=== PATIENT | male | born 1940 | race Caucasian/White ===

== ENCOUNTER 2021-08-26 09:28 | Inpatient (IN) | payer BC, MEDICARE ==
[2021-08-26] MEDS ORDERED: SODIUM CHLORIDE 0.9% 500 ML 500 ML IV ONE (09:45)
--- NOTE | 2021-08-26 10:04 | ED ---
General Adult HPI - General Chief complaint: Altered Mental Status Stated complaint: Poss Stroke Time Seen by Provider: 08/26/21 09:31 Source: patient, family, RN notes reviewed, old records reviewed Mode of arrival: ambulatory Limitations: no limitations - History of Present Illness Initial comments: 80-year-old male presenting for evaluation of confusion, and memory loss. Symptoms began yesterday evening. Patient self has no complaints, no headache, no chest pain, no fever, he has been eating and drinking well with no vomiting or diarrhea. No focal numbness or weakness. He was urged to come to the emergency department by his family would noted a change. He has no chronic medical conditions and is on no medication. This began yesterday at approximately 8 PM. He is presenting for evaluation at 0930. - Related Data Home Medications Medication Instructions Recorded Confirmed No Known Home Medications 08/26/21 08/26/21 Allergies Allergy/AdvReac Type Severity Reaction Status Date / Time No Known Allergies Allergy Verified 08/26/21 10:51 Review of Systems ROS Statement: Those systems with pertinent positive or pertinent negative responses have been documented in the HPI. ROS Other: All systems not noted in ROS Statement are negative. Past Medical History Past Medical History: No Reported History History of Any Multi-Drug Resistant Organisms: None Reported Past Surgical History: No Surgical Hx Reported Past Psychological History: No Psychological Hx Reported Smoking Status: Never smoker Past Alcohol Use History: None Reported Past Drug Use History: None Reported General Exam Limitations: no limitations General appearance: alert, in no apparent distress Head exam: Present: atraumatic, normocephalic Eye exam: Present: normal appearance, PERRL ENT exam: Present: normal exam Neck exam: Present: normal inspection. Absent: tenderness, meningismus Respiratory exam: Present: normal lung sounds bilaterally. Absent: respiratory distress, wheezes Cardiovascular Exam: Present: regular rate, normal rhythm GI/Abdominal exam: Present: soft. Absent: distended, tenderness Extremities exam: Present: normal inspection, normal capillary refill. Absent: pedal edema Neurological exam: Present: alert, CN II-XII intact. Absent: oriented X3 (2), motor sensory deficit Skin exam: Present: warm, dry, intact Course Vital Signs 08/26/21 08/26/21 09:30 11:40 Temperature 98.7 F Pulse Rate 85 74 Respiratory 20 16 Rate Blood Pressure 178/92 154/91 O2 Sat by Pulse 96 100 Oximetry EKG Findings - EKG Comments: EKG Findings:: EKG: Normal sinus rhythm, left axis, rate of 85, DE interval 166, QRS duration 84, QTC [address] segment elevation. Medical Decision Making - Medical Decision Making 80-year-old male presenting with confusion which began yesterday evening. Patient has no focal findings. He is hypertensive but otherwise has stable vitals. EKG sinus rhythm. Head CT performed which is negative for intracranial hemorrhage or mass effect. There is mild atrophy and moderate chronic small ves naveed ischemic changes. Patient has a normal CBC, normal CMP, negative urinalysis. He is given IV hydration and an aspirin in the emergency department. Case discussed with Dr. Valentine who will admit with neurology on consultation. - Lab Data Result diagrams: 08/26/21 09:58 08/26/21 09:58 Lab Results 08/26/21 08/26/21 08/26/21 Range/Units 09:58 09:58 09:58 WBC 9.3 (3.8-10.6) k/uL RBC 5.12 (4.30-5.90) m/uL Hgb 16.8 (13.0-17.5) gm/dL Hct 49.0 (39.0-53.0) % MCV 95.8 (80.0-100.0) fL MCH 32.7 (25.0-35.0) pg MCHC 34.2 (31.0-37.0) g/dL RDW 11.9 (11.5-15.5) % Plt Count 199 (150-450) k/uL MPV 8.3 Neutrophils % 71 % Lymphocytes % 19 % Monocytes % 7 % Eosinophils % 1 % Basophils % 1 % Neutrophils # 6.6 (1.3-7.7) k/uL Lymphocytes # 1.8 (1.0-4.8) k/uL Monocytes # 0.7 (0-1.0) k/uL Eosinophils # 0.1 (0-0.7) k/uL Basophils # 0.1 (0-0.2) k/uL PT 10.1 (9.0-12.0) sec INR 0.9 (<1.2) APTT 22.3 (22.0-30.0) sec Sodium 136 L (137-145) mmol/L Potassium 4.1 (3.5-5.1) mmol/L Chloride 101 (98-107) mmol/L Carbon Dioxide 25 (22-30) mmol/L Anion Gap 10 mmol/L BUN 19 (9-20) mg/dL Creatinine 0.88 (0.66-1.25) mg/dL Est GFR (CKD-EPI)AfAm >90 (>60 ml/min/1.73 sqM) Est GFR (CKD-EPI)NonAf 81 (>60 ml/min/1.73 sqM) Glucose 122 H (74-99) mg/dL Calcium 9.5 (8.4-10.2) mg/dL Total Bilirubin 2.4 H (0.2-1.3) mg/dL AST 25 (17-59) U/L ALT 20 (4-49) U/L Alkaline Phosphatase 46 (38-126) U/L Troponin I (0.000-0.034) ng/mL Total Protein 7.1 (6.3-8.2) g/dL Albumin 4.4 (3.5-5.0) g/dL Urine Color Urine Appearance (Clear) Urine pH (5.0-8.0) Ur Specific [place] (1.001-1.035) Urine Protein (Negative) Urine Glucose (UA) (Negative) Urine Ketones (Negative) Urine Blood (Negative) Urine Nitrite (Negative) Urine Bilirubin (Negative) Urine Urobilinogen (<2.0) mg/dL Ur Leukocyte Esterase (Negative) Urine RBC (0-5) /hpf Urine WBC (0-5) /hpf Urine Mucus (None) /hpf 08/26/21 08/26/21 Range/Units 09:58 10:46 WBC (3.8-10.6) k/uL RBC (4.30-5.90) m/uL Hgb (13.0-17.5) gm/dL Hct (39.0-53.0) % MCV (80.0-100.0) fL MCH (25.0-35.0) pg MCHC (31.0-37.0) g/dL RDW (11.5-15.5) % Plt Count (150-450) k/uL MPV Neutrophils % % Lymphocytes % % Monocytes % % Eosinophils % % Basophils % % Neutrophils # (1.3-7.7) k/uL Lymphocytes # (1.0-4.8) k/uL Monocytes # (0-1.0) k/uL Eosinophils # (0-0.7) k/uL Basophils # (0-0.2) k/uL PT (9.0-12.0) sec INR (<1.2) APTT (22.0-30.0) sec Sodium (137-145) mmol/L Potassium (3.5-5.1) mmol/L Chloride (98-107) mmol/L Carbon Dioxide (22-30) mmol/L Anion Gap mmol/L BUN (9-20) mg/dL Creatinine (0.66-1.25) mg/dL Est GFR (CKD-EPI)AfAm (>60 ml/min/1.73 sqM) Est GFR (CKD-EPI)NonAf (>60 ml/min/1.73 sqM) Glucose (74-99) mg/dL Calcium (8.4-10.2) mg/dL Total Bilirubin (0.2-1.3) mg/dL AST (17-59) U/L ALT (4-49) U/L Alkaline Phosphatase (38-126) U/L Troponin I <0.012 (0.000-0.034) ng/mL Total Protein (6.3-8.2) g/dL Albumin (3.5-5.0) g/dL Urine Color Yellow Urine Appearance Cloudy (Clear) Urine pH 6.0 (5.0-8.0) Ur Specific [place] 1.023 (1.001-1.035) Urine Protein Negative (Negative) Urine Glucose (UA) Negative (Negative) Urine Ketones Negative (Negative) Urine Blood Negative (Negative) Urine Nitrite Negative (Negative) Urine Bilirubin Negative (Negative) Urine Urobilinogen <2.0 (<2.0) mg/dL Ur Leukocyte Esterase Negative (Negative) Urine RBC 1 (0-5) /hpf Urine WBC 1 (0-5) /hpf Urine Mucus Moderate H (None) /hpf Disposition Clinical Impression: Altered mental status Disposition: ADMITTED IP TO THIS HOSP Condition: Stable Is patient prescribed a controlled substance at d/c from ED?: No Referrals: Souleymane Pesraud MD [Primary Care Provider] - 1-2 days Decision to Admit Reason: Admit from EC Decision Date: 08/26/21 Decision Time: 12:04
--- NOTE | 2021-08-26 10:53 | XR ---
EXAMINATION TYPE: XR chest 2V DATE OF EXAM: 08/26/2021 COMPARISON: NONE HISTORY: Altered mental status TECHNIQUE: Frontal and lateral views of the chest are obtained. FINDINGS: Patient is rotated and the exam appears expiratory. Aorta is dense. No evident pneumothora x or pleural effusion. There is minimal patchy basilar density. Retrocardiac density with central jennyfer ency suggestive of hiatal hernia and partial intrathoracic stomach. There are overlying leads. Arthro miguel angel noted in the left shoulder. Cardiac mediastinal silhouette within normal limits accounting for technique. IMPRESSION: Expiratory rotated exam. Probable basilar atelectasis on the follow-up as indicated, add itional findings above.
--- NOTE | 2021-08-26 10:59 | CT ---
EXAMINATION TYPE: CT brain wo con DATE OF EXAM: 08/26/2021 HISTORY: AMS CT DLP: 1096.4 mGycm. Automated Exposure Control for Dose Reduction was Utilized. TECHNIQUE: CT scan of the head is performed without contrast. COMPARISON: None. FINDINGS: There is no acute intracranial hemorrhage or midline shift identified. There is mild diff use ventricular and sulcal prominence consistent with diffuse age-related cerebral atrophy. There is moderate to advanced low-attenuation in the deep and periventricular white matter consistent with c hronic small vessel ischemic change. The globes are intact and the visualized sinuses are clear. IMPRESSION: No acute intracranial hemorrhage or midline shift. There is mild diffuse age-related ce rebral atrophy and moderate to advanced chronic small vessel ischemic change noted.
[2021-08-26 11:14] LABS: Basophils # (A) 0.1 k/uL (0-0.2); Basophils % (A) 1 %; Eosinophils # (A) 0.1 k/uL (0-0.7); Eosinophils % (A) 1 %; HGB 16.8 gm/dL (13.0-17.5); Lymphocytes # (A) 1.8 k/uL (1.0-4.8); Lymphocytes % (A) 19 %; MCH 32.7 pg (25.0-35.0); MCHC 34.2 g/dL (31.0-37.0); MCV 95.8 fL (80.0-100.0); Mean Platelet Volume 8.3; Monocytes # (A) 0.7 k/uL (0-1.0); Monocytes % (A) 7 %; Neutrophils # (A) 6.6 k/uL (1.3-7.7); Neutrophils % (A) 71 %; Platelet Count 199 k/uL (150-450); RBC 5.12 m/uL (4.30-5.90); RDW 11.9 % (11.5-15.5); WBC 9.3 k/uL (3.8-10.6)
[2021-08-26 11:19] LABS: ALT 20 U/L (4-49); AST 25 U/L (17-59); African American GFR (CKD) >90 (>60 ml/min/1.73 sqM); Albumin 4.4 g/dL (3.5-5.0); Alkaline Phosphatase 46 U/L (38-126); Anion Gap 10 mmol/L; Blood Urea Nitrogen 19 mg/dL (9-20); Calcium 9.5 mg/dL (8.4-10.2); Carbon Dioxide 25 mmol/L (22-30); Chloride 101 mmol/L (98-107); Glucose 122 mg/dL (74-99); Non-African American GFR(CKD) 81 (>60 ml/min/1.73 sqM); Potassium 4.1 mmol/L (3.5-5.1); Sodium 136 mmol/L (137-145); Total Bilirubin 2.4 mg/dL (0.2-1.3); Total Protein 7.1 g/dL (6.3-8.2)
[2021-08-26] MEDS ORDERED: ASPIRIN 325 MG TAB PO STA (11:22)
[2021-08-26 11:23] LABS: INR 0.9 (<1.2); Partial Thromboplastin Time 22.3 sec (22.0-30.0); Prothrombin Time 10.1 sec (9.0-12.0)
[2021-08-26 11:30] LABS: Appearance,Urine Cloudy (Clear); Bilirubin,Urine Negative (Negative); Blood,Urine Negative (Negative); Color,Urine Yellow; Glucose,Urine (UA) Negative (Negative); Ketones,Urine Negative (Negative); Leukocyte Esterase,Urine Negative (Negative); Mucus,Urine Moderate /hpf; Nitrite,Urine Negative (Negative); Protein,Urine Negative (Negative); RBC,Urine 1 /hpf (0-5); Specific Gravity,Urine 1.023 (1.001-1.035); Urobilinogen,Urine <2.0 mg/dL (<2.0); WBC,Urine 1 /hpf (0-5)
[2021-08-26] MEDS ORDERED: NALOXONE 0.4 MG/ML 1 ML VIAL IV PRN (12:02)
[2021-08-26 13:04] LABS: Glucose,Whole Blood 100 mg/dL (75-99)
--- NOTE | 2021-08-26 13:30 | P.HPIM ---
History of Present Illness H&P Date: 08/26/21 Chief Complaint: Increased confusion, word finding difficulty, gait instability History of present illness 80 years old male with no significant past medical history comes in with with increased confusion that started last night. Patient was unable to provide any details of the previous night. He was unable to recall the place or the month or the president of [facility]. He is usually very alert and is currently working. 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 Patient was unable to tell that he was going for what he does. He was noticed to have some some word finding difficulty. Patient is otherwise alert answering questions appropriately. He had similar incidents to work 3 months ago which was thought to be heatstroke. Symptoms resolved with hydration. On evaluation in the ER patient was afebrile pulse 85 respiratory rate 20 blood pressure was noted to be high at 178/92. EKG suggested normal sinus rhythm with left axis pulse rate of 85 QRS 84 QTC 444. Labs are reviewed no leukocytosis hemoglobin stable at 16.8 sodium 136 BUN 19 creatinine 0.[address] head was obtained which is negative for intracranial hemorrhage or mass effect mild atrophy and moderate to advanced chronic small vessel ischemic changes werenoted. Patient was given 500 mL bolus and 325 mg of started aspirin. Neurology is consulted. We'll obtain carotid Dopplers. Echocardiogram will be ordered. ROS Constitutional: Denies chills, Denies fever, Denies lethargy, Denies malaise, Denies poor appetite, Denies weakness, Denies weight loss Eyes: denies decreased vision, denies diplopia, denies discharge, denies pain Ears: deny: decreased hearing Ears, nose, mouth and throat: Denies dental pain, Denies headache, Denies nasal discharge, Denies nose pain Cardiovascular: Denies chest pain, Denies decreased exercise tolerance, Denies edema, Denies high blood pressure, Denies irregular heart beat, Denies palpita tions, Denies paroxysmal nocturnal dyspnea, Denies rapid heart beat, Denies shortness of breath Respiratory: Denies congestion, Denies cough, Denies cough with sputum, Denies dyspnea, Denies home oxygen, Denies wheezing Gastrointestinal: Denies abdominal pain, Denies change in bowel habits, Denies c offee ground emesis, Denies early satiety, Denies excessive gas, Denies heartburn, Denies hematemesis, Denies hematochezia, Denies loss of appetite, Denies nausea, Denies vomiting Genitourinary: Denies dysuria, Denies flank pain, Denies kidney stones, Denies menorrhagia, Denies urgency, Denies urinary frequency Musculoskeletal: Denies gait dysfunction, Denies limitation of motion, Denies morning stiffness, Denies muscle cramps Integumentary: Denies rash, Denies wounds, Denies brittle nails, Denies change in hair/nails, Denies darkening of skin Neurological: Endorses balance difficulties, endorses change in speech, Denies double vision, Denies gait dysfunction, Denies loss of vision, Denies motor disturbance, Denies numbness, Denies paralysis, Denies paresthesias, Denies seizures Psychiatric: Denies anxiety, Denies depression Endocrine: Denies excessive sweating, Denies excessive thirst, Denies high blood sugars, Denies palpitations Hematologic/Lymphatic: Denies easy bruising, Denies lymphadenopathy Social history Nonsmoker nondrinker and lives with his . Functionally independent. Denies any use of walker or cane. Finances are managed by . patient drives himself Family history mother disease in the 90s of dementia father from dementia and stroke 90s no siblings has 2 daughters one at 51 from ovarian cancer and another daughter has thyroid issues Physical exam - Constitutional General appearance: cooperative, no acute distress, appears stated age very pleasant - EENT Eyes: anicteric sclerae, PERRLA, normal appearance ENT: hearing grossly normal - Neck Neck: no lymphadenopathy, normal ROM, no other, no rigidity, no stridor, no thyromegaly - Respiratory Respiratory: bilateral: CTA, negative: diminished, dullness, rales, rhonchi - Cardiovascular Rhythm: regular Heart sounds: normal: S1, S2 Abnormal Heart Sounds: no systolic murmur, no diastolic murmur, no rub, no S3 Gallop, no S4 Gallop, no click, no other - Gastrointestinal General gastrointestinal: normal bowel sounds, soft nontender - Integumentary Integumentary: no rash - Neurologic Neurologic: CNII-XII intact no motor or sensory deficit. Difficulty with word finding. Oriented in 2 to - Musculoskeletal Musculoskeletal: gait normal, strength equal bilaterally - Psychiatric Psychiatric: A&O x's 2, appropriate affect Assessment and plan #1 expressive aphasia with new onset mental status change. Contrast CT suggestive of advanced small vessel ischemic changes. MRI without contrast ordered carotid ultrasound ordered. Aspirin 325 mg stat given. Lipid panel ordered. Neurology consult placed. Fall precautions. Seizure precautions. Permissive hypertension will treat if systolic more than 180 #2 hyponatremia mild. Likely secondary to dehydration. #3 hyperglycemia. HbA1c ordered. Likely prediabetes. Continue diabetic diet #4 hypertension patient does not take any blood pressure medication. Blood pressure could be a result. Low-salt diet. Heart healthy diet #5 code status full code #6 DVT heparin every 12 #7 disposition patient need 1-2 nights for stabilization. Awaiting neurology Past Medical History Past Medical History: No Reported History History of Any Multi-Drug Resistant Organisms: None Reported Past Surgical History: No Surgical Hx Reported Past Psychological History: No Psychological Hx Reported Smoking Status: Never smoker Past Alcohol Use History: None Reported Past Drug Use History: None Reported Medications and Allergies Home Medications Medication Instructions Recorded Confirmed Type No Known Home Medications 08/26/21 08/26/21 History Allergies Allergy/AdvReac Type Severity Reaction Status Date / Time No Known Allergies Allergy Verified 08/26/21 10:51 Physical Exam Vitals: Vital Signs Temp Pulse Resp BP Pulse Ox 08/26/21 11:40 74 16 154/91 100 08/26/21 09:30 98.7 F 85 20 178/92 96 Intake and Output 08/25/21 08/26/21 08/26/21 22:59 06:59 14:59 Other: Weight 68.039 kg Results CBC & Chem 7: 08/26/21 09:58 08/26/21 09:58 Labs: Abnormal Lab Results - Last 24 Hours (Table) 08/26/21 08/26/21 08/26/21 Range/Units 09:58 10:46 13:02 Sodium 136 L (137-145) mmol/L Glucose 122 H (74-99) mg/dL POC Glucose (mg/dL) 100 H (75-99) mg/dL Total Bilirubin 2.4 H (0.2-1.3) mg/dL Urine Mucus Moderate H (None) /hpf
--- NOTE | 2021-08-26 14:26 | P.CNNES ---
History of Present Illness Consult date: 08/26/21 Requesting physician: Didier Beach Reason for Consult: 08/26/2021 History of Present Illness: This is an 80-year-old gentleman with no prior medical history who presented emergency department on 08/26/2021 because of increased confusion since last night. The history is obtained from patient's family members (his and daughter who are at bedside). Per the patient's his symptoms began around 8:00 PM yesterday and he wasn't making sense. Per the patient's daughter she stated that she was documented as 7:30pm over the phone and was doing well. Per the patient's she wasn't making sense. Patient does not have any focal weakness, numbness, visual disturbance or headache. Per family members he had a similar episode in May 2021 in which he went to [place] and he does not recall what happened that day. Upon asking the patient what brought him to the hospital he had hard time stating what he is here for then asked me to repeat question and then later stated for his mind to be checked. Some other workup in the hospital consisted of: Initial vital signs his blood pressure of 178/92, heart rate of 85, respiratory of 20, temperature of 98.7 Fahrenheit oral and pulse ox of 96% on room air. CT of the head is reported as no acute intracranial hemorrhage or midline shift. There is mild diffuse age-related cerebral atrophy and moderate to advanced chronic small vessel ischemic changes noted. I personally reviewed the CT of the head and I do not appreciate any acute subacute ischemia. 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 CBC with differential is unremarkable. Chemistry panel is sodium is 136, glucose 122, creatinine 0.88, AST 25, ALT of 20. Calcium is 9.5. Urinalysis is negative for urinary tract infection. EKG is reported as normal sinus rhythm. Left axis deviation. Minimal voltage criteria for left ventricular hypertrophy, may be normal variant. Abnormal EKG. Review of Systems Review of system: The 12 point system was reviewed and apparent positive and negative per HPI. Past Medical History Past Medical History: No Reported History History of Any Multi-Drug Resistant Organisms: None Reported Past Surgical History: No Surgical Hx Reported Past Psychological History: No Psychological Hx Reported Smoking Status: Never smoker Past Alcohol Use History: None Reported Past Drug Use History: None Reported Medications and Allergies Home Medications Medication Instructions Recorded Confirmed Type No Known Home Medications 08/26/21 08/26/21 History Allergies Allergy/AdvReac Type Severity Reaction Status Date / Time No Known Allergies Allergy Verified 08/26/21 10:51 Physical Examination - Vital Signs Vital Signs: Vital Signs Temp Pulse Resp BP Pulse Ox 08/26/21 11:40 74 16 154/91 100 08/26/21 09:30 98.7 F 85 20 178/92 96 Intake and Output 08/25/21 08/26/21 08/26/21 22:59 06:59 14:59 Other: Weight 68.039 kg GENERAL: The patient is lying in bed and is not in acute distress. CHEST: The heart rate is regular rate rhythm. No murmurs to auscultation. Mild bruit over the right carotid. LUNG: Clear to auscultation bilaterally no wheezing noted throughout. Not labored breathing. ABDOMEN/GI: Bowel sounds present in all 4 quadrants. No tenderness to palpation throughout. NEUROLOGICAL: Higher mental function: The patient is awake, alert, oriented to self and place. He stated the month is November and the year is . Patient is able to correctly stated the capital of [place] and [place] Patient is able to name objects (pen, watch and glasses). Patient is following simple and complex commands. Having word finding difficulty. No neglect. Cranial nerves: The pupils are round, equal and reactive to light and accommodation. Visual phelps are full to confrontation throughout. Extraocular movement is intact no nystagmus is noted. Facial sensation is normal to touch throughout. The facial strength is normal throughout. Hearing is normal bilaterally to hand rub. Tongue is midline and moved [id number] without any difficulty. No dysarthria is noted. Shoulder shrug is normal bilaterally. Motor: Gait is normal with normal arms swings. The strength is 5 over 5 throughout. Normal tone and bulk. Cerebellum: Normal finger to nose bilaterally. Sensation: Sensation is normal to touch throughout. Reflexes (right/left): 2+ throughout. Plantars are downgoing bilaterally. Results - Laboratory Findings CBC and BMP: 08/26/21 09:58 08/26/21 09:58 Abnormal Lab Findings: Abnormal Labs 08/26/21 08/26/21 08/26/21 09:58 10:46 13:02 Sodium 136 L Glucose 122 H POC Glucose (mg/dL) 100 H Total Bilirubin 2.4 H Urine Mucus Moderate H Assessment and Plan Assessment: 1. Altered mentation with word finding difficulty. Rule out stroke. 2. Per family had similar episode as #1 in 05/2021 and does not recall what transpired that day. 3. Possibly the patient has underlying mild cognitive impairment/dementia in addition 4. Hypertension Plan: * MRI of the brain, 2-D echo, carotid duplex, vitamin B12, hemoglobin A1c, lipid panel and homocysteine level is ordered by the primary team and is pending * I ordered TSH, folate level. I Also ordered routine EEG. I'll not start the patient on antiepileptic drugs unless there is epileptiform discharges or seizure in the EEG. * The ED the patient was given aspirin 325 once. I spoke with his family and we agreed to wait until after MRI Brain then to start ASA 81mg daily and Lipitor 20mg qhs. * Placed on every 4 hours neuro checks.\Placed on cardiac monitoring * Consulted the speech therapy. * We'll defer the rest of the medical management to primary team. * For DVT prophylaxis will defer the management to the primary team. The plan is discussed with the patient and his family members (daughter and his who are at bedside). Thank you for the consultation. Vu Gates M.D. Neuro-hospitalist Time with Patient: Greater than 30
[2021-08-26] MEDS: SODIUM CHLORIDE 0.9% 1,000 ML IV SCH (15:21)
--- NOTE | 2021-08-26 15:54 | US ---
EXAMINATION TYPE: US carotid duplex BILAT DATE OF EXAM: 08/26/2021 COMPARISON: NONE CLINICAL HISTORY: Rule out TIA. Altered mental status EXAM MEASUREMENTS: RIGHT: Peak Systolic Velocity (PSV) cm/sec ----- Right CCA: 46.2 ----- Right ICA: 87.8 ----- Right ECA: 109.9 ICA/CCA ratio: 1.9 RIGHT: End Diastole cm/sec ----- Right CCA: 9.9 ----- Right ICA: 21.9 ----- Right ECA: 10.2 LEFT: Peak Systolic Velocity (PSV) cm/sec ----- Left CCA: 70.6 ----- Left ICA: 111.2 ----- Left ECA: 160.1 ICA/CCA ratio: 1.6 LEFT: End Diastole cm/sec ----- Left CCA: 13.0 ----- Left ICA: 20.6 ----- Left ECA: 11.4 VERTEBRALS (direction of flow): Right Vertebral: Antegrade Left Vertebral: Antegrade Rhythm: Normal Soft plaque bilaterally, however no significant elevated velocities were visualized bilaterally. Dinero scale, color Doppler, spectral Doppler imaging performed of the carotid arteries. Waveform marlyn sis does not show significant stenosis of the internal carotid arteries IMPRESSION: No hemodynamic significant stenosis of the proximal internal carotid arteries by Doppler criteria, indirect measurement of carotid stenosis Criteria for Assigning % of Stenosis / Diameter reduction (Estimation based on the indirect measurements of the internal carotid artery velocities (ICA PSV). 1. Normal (no stenosis)=ICA PSV < 125 cm/s: ratio < 2.0: ICA EDV<40 cm/s. 2. Less than 50% stenosis=ICA PSV < 125 cm/s: ratio < 2.0: ICA EDV<40 cm/s. 3. 50 to 69% stenosis=ICA PSV of 125 to 230 cm/s: ration 2.0 ? 4.0: ICA EDV 40-100 cm/s. 4. Greater than 70% stenosis to near occlusion= ICA PSV > 230 cm/s: ratio > 4.0: ICA EDV > 100 cm/s. 5. Near occlusion= ICA PSV velocities may be low or undetectable: variable ratio and ICA EDV. 6. Total occlusion=unable to detect flow.
[2021-08-26 20:26] LABS: Folate, Serum >20.00 ng/mL (4.40-31.00)
[2021-08-27] MEDS: SODIUM CHLORIDE 0.9% 1,000 ML IV SCH (02:45)
--- NOTE | 2021-08-27 08:15 | ECHOF ---
Referral Reason:CHF MEASUREMENTS -------- HEIGHT: 172.7 cm WEIGHT: 68.0 kg BP: IVSd: 1.3 cm (0.6 - 1.1) LVIDd: 3.0 cm (3.9 - 5.3) LVPWd: 0.9 cm (0.6 - 1.1) IVSs: 1.6 cm LVIDs: 1.7 cm LVPWs: 1.6 cm LAESV Index (A-L): 13.41 ml/m Ao Diam: 3.9 cm (2.0 - 3.7) AV Cusp: 2.2 cm (1.5 - 2.6) LA Diam: 2.4 cm (2.7 - 3.8) MV EXCURSION: 12.842 mm (> 18.000) MV EF SLOPE: 70 mm/s (70 - 150) EPSS: 0.6 cm MV E Markel: 0.48 m/s MV DecT: 149 ms MV A Markel: 0.86 m/s MV E/A Ratio: 0.56 RAP: 5.00 mmHg RVSP: 12.23 mmHg FINDINGS -------- This was a technically good study. The left ventricular size is normal. Left ventricular wall thickness is normal. Overall left vent ricular systolic function is normal with, an EF between 55 - 60 %. The diastolic filling pattern is normal for the age of the patient 9.33. The right ventricle is normal in size. The left atrial size is normal. Normal LA size by volume 22+/-6 ml/m2. The right atrial size is normal. Unable to visualize the septum. The aortic valve is trileaflet and appears structurally normal. The mitral valve is normal. Mild mitral regurgitation is present. The tricuspid valve appears structurally normal. Mild tricuspid regurgitation present. Right vent ricular systolic pressure is normal at < 35 mmHg. There is no pulmonic regurgitation present. The aortic root size is normal. Normal inferior vena cava with normal inspiratory collapse consistent with estimated right atrial pre ssure of 5 mmHg. There is no pericardial effusion. CONCLUSIONS -------- 1. The left ventricular size is normal. 2. Left ventricular wall thickness is normal. 3. Overall left ventricular systolic function is normal with, an EF between 55 - 60 %. 4. The diastolic filling pattern is normal for the age of the patient 9.33 5. Mild mitral regurgitation is present. 6. Mild tricuspid regurgitation present. 7. There is no pericardial effusion. RESIDENT CARE ASSOCIATE: Sandra Urias RDCS
[2021-08-27 11:40] LABS: Chol/HDL Ratio 3.93 Ratio; HDL Cholesterol 56.2 mg/dL (40.00-60.00); LDL Cholesterol,Calculated 135.6 mg/dL (0.0-131.0); VLDL Calculation 29.2 mg/dL (5.00-40.00)
--- NOTE | 2021-08-27 12:12 | MR ---
MR brain without contrast HISTORY: Altered mental status, rule out stroke, abnormal head CT Multiplanar multisequence imaging through the brain There are some scattered areas of restricted diffusion predominantly in the peripheral aspect of the right cerebellar hemisphere, small focus present on the left on axial image 9 of the diffusion weight ed images and on axial image 10 on the left. There is also focus of her strictured diffusion present along the campus on the left as well as a larger area of restricted diffusion on the left at the leve l of the thalamus. At the level of the convexity there is additional area of hyperintensity along the right parietal cortex which is bandlike, punctate diffusion in the right frontal and left frontal lo bes, axial image 26 of the diffusion weighted data set. Corresponding hyperintensities are present on inversion recovery T2-weighted sequences, there are additional scattered areas of encephalomalacia, scoliosis, nonspecific white matter demyelination involving the pericallosal, periventricular, subcor tical white matter. There is no hemorrhage or hydrocephalus. The corpus callosum, pituitary, cervical medullary junction, cerebellopontine angles are unremarkable. Cortical atrophy is noted. There are expected vascular flow voids. Encephalomalacia also present in t he left cerebellar hemisphere. The orbits show symmetric appearance. No significant inflammatory new ge in the paranasal sinuses with the exception of the left maxillary sinus, ethmoid air cells. IMPRESSION: Bilateral areas of restricted diffusion consistent with cerebral vascular accidents, cons ider embolic phenomenon. Age-related changes of atrophy and chronic small vessel ischemia are underly ing. Mild sinus disease.
--- NOTE | 2021-08-27 13:11 | EEG ---
ELECTROENCEPHALOGRAM REPORT DATE OF SERVICE: 08/27/2021. CLINICAL HISTORY: This is an 80-year-old gentleman who presented to the emergency department because of aphasia as well as confusion. The video EEG is obtained to evaluate for seizure and epileptiform discharges. RELEVANT MEDICATION: The patient is not on any antiepileptic drug. EEG TYPE: A routine 21-channel EEG is performed with video using the 10/20 electrode placement system. DESCRIPTION: Wakefulness and drowsiness are obtained. During wakefulness, there is a posterior- dominant rhythm of low to moderate voltage, reactive, well modulated of 8.5 to 9 hertz activity. During drowsiness there is slowing and attenuation of the background activity. There is no stage II sleep architecture seen. There is no focal slowing seen. Interictal and ictal is none. ACTIVATION PROCEDURE: Photic stimulation did not evoke a posterior driving response. There is no abnormality during the photic stimulation. Hyperventilation is not performed. CLINICAL INTERPRETATION: This is a normal routine EEG. There are no focal slowing, epileptiform discharges or seizure on the EEG. Clinical correlation is recommended. ORA / YAN: [id number] / MTDD
--- NOTE | 2021-08-27 13:13 | P.CRDCN ---
History of Present Illness Consult date: 08/27/21 History of present illness: HISTORY OF PRESENT ILLNESS: This is a 80-year-old male with a past medical history significant for TIA. Patient does not follow with a attendant child activity. We have been asked to see the patient in consultation for YOJANA for bilateral CVA. Patient examined at the bedside. Patient's spouse and daughter present. The patient's spouse is providing the majority of the HPI. She states that 2 days ago the patient became extremely confused and was not acting like himself. She brought into the hospital for further evaluation. Patient had an MRI completed today revealing bilateral CVAs. The patient denies any history of atrial fibrillation. He does report history of having a TIA in the past. He currently denies chest pain or pressure. Denies shortness of breath. Patient's family states the patient is almost back to his baseline. EKG reveals sinus mechanism with no signs of acute ischemia Chest xray probable basilar atelectasis Laboratory data: WBC 9.3. Hemoglobin 16.8. Platelet count 199. Sodium 136. Potassium 4.1. BUN 19. Creatinine 0.88. Troponin negative 1. Current home cardiac medications include none Echocardiogram completed revealed ejection fraction 55-60%, mild mitral regurgitation, and mild tricuspid regurgitation Brain MRI: Bilateral areas of restricted diffusion consistent with cerebral vascular accidents, consider embolic phenomenon. Age related changes of atrophy and chronic small vessel ischemia or underlying. Mild sinus disease. REVIEW OF SYSTEMS: At the time of my exam: CONSTITUTIONAL: Denies fever or chills. HEENT: Denies blurred vision, vision changes, or eye pain. Denies hemoptysis CARDIOVASCULAR: Denies chest pain. Denies orthopnea. Denies PND. Denies palpitations RESPIRATORY: Denies shortness of breath. GASTROINTESTINAL: Denies abdominal pain. Denies nausea or vomiting. HEMATOLOGIC: Denies bleeding disorders. GENITOURINARY: Denies any blood in urine. SKIN: Denies pruitis. Denies rash. PHYSICAL EXAM: VITAL SIGNS: Reviewed. GENERAL: Well-developed in no acute distress. HEENT: Head is normocephalic. Pupils are equal, round. Sclerae anicteric. Mucous membranes of the mouth are moist. Neck supple. No JVD or thyromegaly LUNGS: Respirations even and unlabored. Lungs essentially clear to auscultation bilaterally. HEART: Regular rate and rhythm. S1 and S2 heard. ABDOMEN: Soft. Nondistended. Nontender. EXTREMITIES: Normal range of motion. No clubbing or cyanosis. Peripheral pulses intact. No lower extremity edema NEUROLOGIC: Awake and alert. Oriented x 3. ASSESSMENT: Bilateral CVA History of TIA per patients PLAN: 2-D echo obtained and reviewed Continue Aspirin, Plavix, and Lipitor as started by neurology Continue telemetry monitoring to rule out any arrhythmias Patient to undergo YOJANA tomorrow with Dr. Gregorio Further recommendations pending patient's course Nurse practitioner note has been reviewed by physician. Signing provider agrees with the documented findings, assessment, and plan of care. Past Medical History Past Medical History: No Reported History History of Any Multi-Drug Resistant Organisms: None Reported Past Surgical History: No Surgical Hx Reported Past Psychological History: No Psychological Hx Reported Smoking Status: Never smoker Past Alcohol Use History: None Reported Past Drug Use History: None Reported Medications and Allergies Home Medications Medication Instructions Recorded Confirmed Type No Known Home Medications 08/26/21 08/26/21 History Allergies Allergy/AdvReac Type Severity Reaction Status Date / Time No Known Allergies Allergy Verified 08/26/21 10:51 Physical Exam Vitals: Vital Signs Temp Pulse Resp BP Pulse Ox 08/27/21 07:00 98.3 F 64 16 131/79 96 08/27/21 01:02 97.7 F 62 16 140/81 95 08/26/21 19:22 98.3 F 71 16 150/89 96 08/26/21 19:17 86 16 08/26/21 15:56 97.9 F 86 16 131/78 94 L Intake and Output 08/26/21 08/27/21 08/27/21 22:59 06:59 14:59 Intake Total 240 Balance 240 Intake: Oral 240 Other: # Voids 2 2 1 Results 08/26/21 09:58 08/26/21 09:58 Lipids 08/27/21 Range/Units 06:41 Triglycerides 146.00 (0.00-149.00) mg/dL Cholesterol 221.00 H (0.00-200.00) mg/dL HDL Cholesterol 56.20 (40.00-60.00) mg/dL Cholesterol/HDL Ratio 3.93 Ratio Current Medications Generic Name Dose Route Start Last Admin Trade Name Freq PRN Reason Stop Dose Admin Aspirin 81 mg 08/27/21 12:30 Aspirin 81 Mg PO DAILY KALLIE Atorvastatin Calcium 80 mg 08/27/21 21:00 Atorvastatin 80 Mg Tab PO HS KALLIE Clopidogrel Bisulfate 75 mg 08/27/21 12:30 Clopidogrel 75 Mg Tab PO DAILY KALLIE Sodium Chloride 1,000 mls @ 75 mls/hr 08/26/21 12:15 08/27/21 02:45 Saline 0.9% IV Not Given .[id number] [facility] Naloxone HCl 0.2 mg 08/26/21 12:02 Naloxone 0.4 Mg/Ml 1 Ml Vial IV Q2M PRN Opioid Reversal Intake and Output 08/26/21 08/27/21 08/27/21 22:59 06:59 14:59 Intake Total 240 Balance 240 Intake: Oral 240 Other: # Voids 2 2 1 08/26/21 09:58 08/26/21 09:58
[2021-08-27] MEDS: ASPIRIN 81 MG PO SCH (13:31)
[2021-08-27] MEDS: CLOPIDOGREL 75 MG TAB PO SCH (13:31)
--- NOTE | 2021-08-27 14:10 | P.PN ---
Subjective Progress Note Date: 08/27/21 The patient seen at bedside and is accompanied by his and she feels he is looking more alert and awake. Per the he seems to be responding better today. Denies any new neurological problems. Objective - Vital Signs Vital signs: Vital Signs Temp 98.3 F 08/27/21 07:00 Pulse 64 08/27/21 07:00 Resp 16 08/27/21 07:00 BP 131/79 08/27/21 07:00 Pulse Ox 96 08/27/21 07:00 Intake & Output 08/26/21 08/27/21 08/27/21 18:59 06:59 18:59 Intake Total 240 Balance 240 Weight 68.039 kg Intake: Oral 240 Other: # Voids 1 2 1 - Exam GENERAL: The patient is lying in bed and is not in acute distress. NEUROLOGICAL: Higher mental function: The patient is awake, alert, oriented to self and place. He stated the month is November and the year is . Patient is able to correctly stated the capital of [place] and [place] Patient is able to name objects (pen, watch and glasses). Patient is following simple and complex commands. Having word finding difficulty. No neglect. Cranial nerves: The pupils are round, equal and reactive to light and accommodation. Visual phelps are full to confrontation throughout. Extraocular movement is intact no nystagmus is noted. Facial sensation is normal to touch throughout. The facial strength is normal throughout. Hearing is normal bilaterally to hand rub. Tongue is midline and moved [id number] without any difficulty. No dysarthria is noted. Shoulder shrug is normal bilaterally. Motor: Gait is normal with normal arms swings. The strength is 5 over 5 throughout. Normal tone and bulk. Cerebellum: Normal finger to nose bilaterally. Sensation: Sensation is normal to touch throughout. Reflexes (right/left): 2+ throughout. Plantars are downgoing bilaterally. WORK-UP: Lipid panel is a triglyceride of 146, cholesterol 221, LDL is 135 and ACL of the 56. TSH is 3.57 Vitamin B12 is 979. Serum folate is more than 20. Hemoglobin A1c is 5.5. CT of the head is reported as no acute intracranial hemorrhage or midline shift. There is mild diffuse age-related cerebral atrophy and moderate to advanced chronic small vessel ischemic changes noted. I personally reviewed the CT of the head and I do not appreciate any acute subacute ischemia. 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 MR the brain is reported as bilateral area of restricted diffusion consistent with cerebral vascular accident, consider embolic phenomena. Age-related changes of atrophy and chronic small vessel ischemia or underlying. Mild the sinus disease. In the body of the report it is reported that the patient has restricted diffusion in the peripheral aspect of the right cerebellar hemisphere, small focus in the left. There is restricted diffusion in the left thalamus. As well over the right frontal left frontal right parietal. Carotid duplex was reported as no hemodynamic significant stenosis of the proximal internal carotid arteries by Doppler criteria, and direct measurement of carotid stenosis. 2-D echo was reported as left ventricular wall thickness is normal. Ejection fraction of 55-60%. Left atrial size is normal. Routine EEG on 08/27/2021 is normal. - Labs CBC & Chem 7: 08/26/21 09:58 08/26/21 09:58 Labs: Abnormal Lab Results - Last 24 Hours (Table) 08/27/21 Range/Units 06:41 Cholesterol 221.00 H (0.00-200.00) mg/dL LDL Cholesterol, Calc 135.6 H (0.0-131.0) mg/dL Vitamin B12 979.0 H (200.0-944.0) pg/mL Assessment and Plan Assessment: Acute Bilateral hemispheric stroke (presented with word finding difficulty and confusion). Seems embolic in nature (cardioembolic). Dyslipidemia Per family had similar episode of confusion on 05/2021 and does not recall what transpired that day. Possibly the patient has underlying mild cognitive impairment/dementia in addition New onset Hypertension Plan: * I started the patient on aspirin 81 and Plavix 75 mg daily. The patient to continue on dual antiplatelets for now. Start the patient on Lipitor 80 mg da vera at bedtime for secondary stroke prophylaxis. LDL goal stroke is less than 70. * Ordered CT angiography of the head and neck. * Consulted cardiology team for a YOJANA. * Continue every 4 hours neuro checks. * Continue cardiac monitoring. I will place order for event monitor for 30 days. * Consulted PT, OT and speech therapy. * We'll defer the rest of the medical management to primary team. * For DVT prophylaxis will start on subq heparin. * Upon discharge the patient needs to follow-up with a neurologist within 1-2 weeks as outpatient. The plan is discussed with the patient and his . Vu Gates M.D. Neuro-hospitalist Time with Patient: Less than 30
--- NOTE | 2021-08-27 14:34 | P.PN ---
Subjective Progress Note Date: 08/27/21 History of present illness 80 years old male with no significant past medical history comes in [facility] with increased confusion that started last night. Patient was unable to provide any details of the previous night. He was unable to recall the place or the month or the president of [facility]. He is usually very alert and is currently working. 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 Patient was unable to tell that he was going for what he does. He was noticed to have some some word finding difficulty. Patient is otherwise alert answering questions appropriately. He had similar incidents to work 3 months ago which was thought to be heatstroke. Symptoms resolved with hydration. On evaluation in the ER patient was afebrile pulse 85 respiratory rate 20 blood pressure was noted to be high at 178/92. EKG suggested normal sinus rhythm with left axis pulse rate of 85 QRS 84 QTC 444. Labs are reviewed no leukocytosis hemoglobin stable at 16.8 sodium 136 BUN 19 creatinine 0.[address] head was obtained which is negative for intracranial hemorrhage or mass effect mild atrophy and moderate to advanced chronic small vessel ischemic changes werenoted. Patient was given 500 mL bolus and 325 mg of started aspirin. Neurology is consulted. We'll obtain carotid Dopplers. Echocardiogram will be ordered. 08/20 7H and examined at bedside. The patient had mild confusion significantly better than yesterday. Patient is more alert answering questions appropriately. He did still have confusion regarding the month and year. Vital signs reviewed patient is afebrile pulse 64 respiratory rate 16 blood pressure 131/79. Labs reviewed patient has LDL of 135 cholesterol 231 B12 978 TSH 3.5. Cardiology is consulted for possible embolic stroke. Aspirin and Plavix initiated. Lipitor initially 80 mg by mouth daily. CT angiogram to neck ordered. Patient is planned to undergo YOJANA tomorrow. Telemetry continued to rule out atrial fibrillation or any arrhythmias. Echocardiogram with EF of 55-60% with mild MR TR. MRI brain 08/27 suggestive bilateral radial restricted diffusion consistent with CVA was considered embolic phenomena. 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 EEG suggested abnormal routine EEG no focal slowing or epileptiform discharge noted ROS Constitutional: Denies chills, Denies fever, Denies lethargy, Denies malaise, Denies poor appetite, Denies weakness, Denies weight loss Eyes: denies decreased vision, denies diplopia, denies discharge, denies pain Ears: deny: decreased hearing Ears, nose, mouth and throat: Denies dental pain, Denies headache, Denies nasal discharge, Denies nose pain Cardiovascular: Denies chest pain, Denies decreased exercise tolerance, Denies edema, Denies high blood pressure, Denies irregular heart beat, Denies palp itations, Denies paroxysmal nocturnal dyspnea, Denies rapid heart beat, Denies shortness of breath Respiratory: Denies congestion, Denies cough, Denies cough with sputum, Denies dyspnea, Denies home oxygen, Denies wheezing Gastrointestinal: Denies abdominal pain, Denies change in bowel habits, Denies coffee ground emesis, Denies early satiety, Denies excessive gas, Denies heartburn, Denies hematemesis, Denies hematochezia, Denies loss of appetite, Denies nausea, Denies vomiting Genitourinary: Denies dysuria, Denies flank pain, Denies kidney stones, Denies menorrhagia, Denies urgency, Denies urinary frequency Musculoskeletal: Denies gait dysfunction, Denies limitation of motion, Denies morning stiffness, Denies muscle cramps Integumentary: Denies rash, Denies wounds, Denies brittle nails, Denies change in hair/nails, Denies darkening of skin Neurological: Endorses balance difficulties, improved change in speech, Denies double vision, Denies gait dysfunction, Denies loss of vision, Denies motor disturbance, Denies numbness, Denies paralysis, Denies paresthesias, Denies seizures Psychiatric: Denies anxiety, Denies depression Endocrine: Denies excessive sweating, Denies excessive thirst, Denies high blood sugars, Denies palpitations Hematologic/Lymphatic: Denies easy bruising, Denies lymphadenopathy Physical exam - Constitutional General appearance: cooperative, no acute distress, appears stated age very pleasant - EENT Eyes: anicteric sclerae, PERRLA, normal appearance ENT: hearing grossly normal - Neck Neck: no lymphadenopathy, normal ROM, no other, no rigidity, no stridor, no thyromegaly - Respiratory Respiratory: bilateral: CTA, negative: diminished, dullness, rales, rhonchi - Cardiovascular Rhythm: regular Heart sounds: normal: S1, S2 Abnormal Heart Sounds: no systolic murmur, no diastolic murmur, no rub, no S3 Gallop, no S4 Gallop, no click, no other - Gastrointestinal General gastrointestinal: normal bowel sounds, soft nontender - Integumentary Integumentary: no rash - Neurologic Neurologic: CNII-XII intact no motor or sensory deficit. Difficulty with word finding. Oriented in 2 to - Musculoskeletal Musculoskeletal: gait normal, strength equal bilaterally - Psychiatric Psychiatric: A&O x's 2, appropriate affect Assessment and plan #1 acute CVA with expressive aphasia with new onset mental status change. Contrast CT suggestive of advanced small vessel ischemic changes. MRI suggestive of bilateral embolic stroke. CT angiogram to neck pending. Aspirin 81 and Plavix 75 mg initiated. Lipitor initiated at 80 mg by mouth daily Fall precautions. Seizure precautions. Permissive hypertension will treat if systolic more than 180. Cardiology consulted for YOJANA tomorrow #2 hyponatremia mild. Likely secondary to dehydration. Repeat CMP today #3 hyperglycemia. HbA1c 5.5. Continue diabetic diet #4 hypertension patient does not take any blood pressure medication. Blood pressure improved continue to monitor needed will start on lisinopril 2.5 mg by mouth daily. Low-salt diet. Heart healthy diet #5 code status full code #6 DVT heparin every 12 #7 disposition patient need 1-2 nights for stabilization. Objective - Vital Signs Vital signs: Vital Signs Temp 98.3 F 08/27/21 07:00 Pulse 64 08/27/21 07:00 Resp 16 08/27/21 07:00 BP 131/79 08/27/21 07:00 Pulse Ox 96 08/27/21 07:00 Intake & Output 08/26/21 08/27/21 08/27/21 18:59 06:59 18:59 Intake Total 240 Balance 240 Weight 68.039 kg Intake: Oral 240 Other: # Voids 1 2 1 - Labs CBC & Chem 7: 08/26/21 09:58 08/26/21 09:58 Labs: Abnormal Lab Results - Last 24 Hours (Table) 08/27/21 Range/Units 06:41 Cholesterol 221.00 H (0.00-200.00) mg/dL LDL Cholesterol, Calc 135.6 H (0.0-131.0) mg/dL Vitamin B12 979.0 H (200.0-944.0) pg/mL
[2021-08-27] MEDS: HEPARIN SODIUM,PORCINE/PF 5,000 UNIT/0.5 ML SYRINGE SQ SCH ×2 (16:53→20:25)
--- NOTE | 2021-08-27 18:27 | CT ---
EXAMINATION TYPE: CT angio head neck DATE OF EXAM: 08/27/2021 COMPARISON: None HISTORY: Altered mental status. Possible stroke. CT DLP: 264.2 mGycm Automated exposure control for dose reduction was used. CONTRAST: Performed with IV Contrast, patient injected with 65 mL of Isovue 370. Images obtained from the aortic arch to the vertex of the brain with IV contrast. There are 3-D post processed images. There is normal branching pattern of the great vessels on the aortic arch. There is bilateral arteria l flow in the subclavian arteries. There is arterial flow in the common internal and external carotid arteries bilaterally. There is wide patency of the carotid artery bifurcations. There is arterial fl ow in both vertebral arteries. There is arterial flow in the vertebrobasilar artery system. There is no evidence of carotid or vertebral artery aneurysm or dissection. There is arterial flow in the anterior middle and posterior cerebral arteries. There is no mass effec t. There is no evidence of intracranial aneurysm or neovascularity. There is no mass effect. I see no evidence of intracranial arterial stenosis. There is normal enhancement of the venous sinuses. IMPRESSION: Negative CT angiogram of the neck. Negative CT angiogram of the brain.
[2021-08-27] MEDS ORDERED: ATORVASTATIN 80 MG TAB PO SCH (21:00)
[2021-08-28 03:29] LABS: African American GFR (CKD) 78.2 (60.0-200.0); Albumin 4.3 g/dL (3.8-4.9); Anion Gap 5.3 mmol/L (4.00-12.00); BUN/Creat Ratio 17.4 Ratio (12.00-20.00); Blood Urea Nitrogen 18.1 mg/dL (9.0-27.0); Calcium 9.3 mg/dL (8.7-10.3); Carbon Dioxide 28.1 mmol/L (21.6-31.8); Globulin 2.1 g/dL (1.6-3.3); Non-African American GFR(CKD) 67.5 (60.0-200.0); Potassium 4.4 mmol/L (3.5-5.5); Total Bilirubin 1.4 mg/dL (0.30-1.20); Total Protein 6.4 g/dL (6.2-8.2)
[2021-08-28] MEDS: SODIUM CHLORIDE 0.9% 1,000 ML IV SCH (08:23)
[2021-08-28] MEDS ORDERED: fentaNYL (PF) 50 MCG/ML 2 ML AMP ONE (09:57)
[2021-08-28] MEDS ORDERED: SODIUM CHLORIDE 0.9% 1,000 ML IV ONE (10:17)
[2021-08-28] MEDS ORDERED: BENZOCAINE SPRAY 1 CAN TOPICAL ONE (10:23)
[2021-08-28] MEDS: MIDAZOLAM 2 MG/2 ML VIAL IV ONE ×2 (10:24→10:25)
[2021-08-28] MEDS ORDERED: fentaNYL (PF) 50 MCG/ML 2 ML AMP IV ONE (10:24)
--- NOTE | 2021-08-28 10:32 | P.DS ---
Providers Date of admission: 08/27/21 14:32 Expected date of discharge: 08/28/21 Attending physician: Gina Valentine MD Consults: 08/26/21 12:02 Consult Physician Routine Consulting Provider: Vu Gates Consult Reason/Comments: AMS Do you want consulting provider notified?: Yes 08/27/21 12:20 Consult Physician Routine Consulting Provider: Guerline Morales Consult Reason/Comments: YOJANA. Bilateral hemisphere stroke. Seems Embolic phenomenon Do you want consulting provider notified?: Yes Primary care physician: [facility] Course: History of present illness 80 years old male with no significant past medical history comes in with with increased confusion that started last night. Patient was unable to provide any details of the previous night. He was unable to recall the place or the month or the president of [facility]. He is usually very alert and is currently working. 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 Patient was unable to tell that he was going for what he does. He was noticed to have some some word finding difficulty. Patient is otherwise alert answering questions appropriately. He had similar incidents to work 3 months ago which was thought to be heatstroke. Symptoms resolved with hydration. On evaluation in the ER patient was afebrile pulse 85 respiratory rate 20 blood pressure was noted to be high at 178/92. EKG suggested normal sinus rhythm with left axis pulse rate of 85 QRS 84 QTC 444. Labs are reviewed no leukocytosis hemoglobin stable at 16.8 sodium 136 BUN 19 creatinine 0.[address] head was obtained which is negative for intracranial hemorrhage or mass effect mild atrophy and moderate to advanced chronic small vessel ischemic changes werenoted. Patient was given 500 mL bolus and 325 mg of started aspirin. Neurology is consulted. We'll obtain carotid Dopplers. Echocardiogram will be ordered. 08/27 and examined at bedside. The patient had mild confusion significantly better than yesterday. Patient is more alert answering questions appropriately. He did still have confusion regarding the month and year. Vital signs reviewed patient is afebrile pulse 64 respiratory rate 16 blood pressure 131/79. Labs reviewed patient has LDL of 135 cholesterol 231 B12 978 TSH 3.5. Cardiology is consulted for possible embolic stroke. Aspirin and Plavix initiated. Lipitor initially 80 mg by mouth daily. CT angiogram to neck ordered. Patient is planned to undergo YOJANA tomorrow. Telemetry continued to rule out atrial fibrillation or any arrhythmias. Echocardiogram with EF of 55-60% with mild MR TR. MRI brain 08/27 suggestive bilateral radial restricted diffusion consistent with CVA was considered embolic phenomena. 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 EEG suggested abnormal routine EEG no focal slowing or epileptiform discharge noted 08/28: She underwent YOJANA today which revealed no intracardiac thrombus. No evidence of shunting across the septum. Moderate atherosclerotic plaque involving the aorta. EEG was normal. He has been followed closely by neurology, event monitor has been ordered. Recommendations are for aspirin and Plavix and neurology follow-up. He is planning to go home with family and does not require home care. Patient will be discharged today in stable condition. 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 #2 hyponatremia mild. Likely secondary to dehydration. #3 hyperglycemia. HbA1c 5.5. #4 hypertension Impression and plan of care have been directed as dictated by the signing physician. Verena Velasquez nurse practitioner acting as scribe for signing physician. Patient Condition at Discharge: Stable Plan - Discharge Summary New Discharge Prescriptions: New Aspirin 81 mg PO DAILY tab Atorvastatin [Lipitor] 80 mg PO HS #30 tab Clopidogrel [Plavix] 75 mg PO DAILY #30 tab lisinopriL [Zestril] 2.5 mg PO DAILY #30 tab Discharge Medication List Aspirin 81 mg PO DAILY tab 08/28/21 [Rx] Atorvastatin [Lipitor] 80 mg PO HS #30 tab 08/28/21 [Rx] Clopidogrel [Plavix] 75 mg PO DAILY #30 tab 08/28/21 [Rx] lisinopriL [Zestril] 2.5 mg PO DAILY #30 tab 08/28/21 [Rx] Follow up Appointment(s)/Referral(s): Era Mariee MD [REFERRING] - 1 Week (Office will call with appointment date and time) Souleymane Persaud MD [Primary Care Provider] - 09/04/21 10:15 am Patient Instructions/Handouts: Transesophageal Echocardiogram (DC), Altered Mental Status (GEN), Stroke (DC) Discharge Disposition: HOME WITH HOME HEALTH SERVICES
[2021-08-28 11:08] VITALS: RESP 18
[2021-08-28] MEDS: CLOPIDOGREL 75 MG TAB PO SCH (11:14)
[2021-08-28] MEDS: ASPIRIN 81 MG PO SCH (11:14)
[2021-08-28] MEDS: HEPARIN SODIUM,PORCINE/PF 5,000 UNIT/0.5 ML SYRINGE SQ SCH (11:14)
[2021-08-28] MEDS ORDERED: SODIUM CHLORIDE 0.9% 1,000 ML IV SCH (11:30)
--- NOTE | 2021-08-28 11:55 | ECHOT ---
TRANSESOPHAGEAL ECHOCARDIOGRAM INDICATION: To rule out cardiac source of thromboembolic phenomena in a patient with CVA. PROCEDURE NOTE: After obtaining informed consent, transesophageal echocardiogram was performed in left lateral position using an Omniplane probe. Local and IV sedation were obtained using Xylocaine spray, 2 mg of intravenous Versed, and 50 mcg of fentanyl. Patient tolerated the procedure well without any obvious immediate complications. Total sedation time was 9 minutes. We obtained 2D, M-mode, color Doppler and spectral analysis. FINDINGS: 1. There is no intracardiac thrombus within the left atrial appendage, left atrium, right atrium, right ventricle or left ventricle. 2. Interatrial septum appears aneurysmally dilated. There is no evidence of left-to- right shunt by color-flow Doppler or [id number] shunt by agitated saline contrast study. 3. There is mild mitral and aortic regurgitation noted. There is mild tricuspid regurgitation noted. Left ventricle has normal size and systolic function. Left atrium appears enlarged. Right atrium and right ventricle seem within normal limits. Aorta shows moderate atherosclerotic changes with ascending aortic aneurysm measuring 4 cm. CONCLUSIONS: 1. No intracardiac thrombus. 2. Normal LV function. 3. No evidence of shunting across the septum. 4. Moderate atherosclerotic plaque involving the aorta. MMODL / IJN: [id number] /
[2021-08-28 14:55] VITALS: BP 121/75; PULSE 69; TEMP 97.9
--- NOTE | 2021-08-28 16:08 | P.PN ---
Subjective Progress Note Date: 08/28/21 The patient is seen at bedside and doing well. He is accompanied with his daughter who agrees. She feels he is getting better, mentation andrew but not back to baseline. Objective - Vital Signs Vital signs: Vital Signs Temp 97.9 F 08/28/21 14:55 Pulse 69 08/28/21 14:55 Resp 18 08/28/21 14:55 BP 121/75 08/28/21 14:55 Pulse Ox 94 L 08/28/21 14:55 Intake & Output 08/27/21 08/28/21 08/28/21 18:59 06:59 18:59 Intake Total 300 200 Balance 300 200 Intake: IV 100 Oral 300 100 Other: Voiding Method Toilet Toilet Diaper Diaper # Voids 3 2 2 - Exam GENERAL: The patient is lying in bed and is not in acute distress. NEUROLOGICAL: Higher mental function: The patient is awake, alert, oriented to self and place. He stated the month is November and the year is . Patient is able to correctly stated the capital of [place] and [place] Patient is able to name objects (pen, watch and glasses). Patient is following simple and complex commands. Having word finding difficulty. No neglect. Cranial nerves: The pupils are round, equal and reactive to light and accommodation. Visual phelps are full to confrontation throughout. Extraocular movement is intact no nystagmus is noted. Facial sensation is normal to touch throughout. The facial strength is normal throughout. Hearing is normal bilaterally to hand rub. Tongue is midline and moved [id number] without any difficulty. No dysarthria is noted. Shoulder shrug is normal bilaterally. Motor: Gait is normal with normal arms swings. The strength is 5 over 5 th roughout. Normal tone and bulk. Cerebellum: Normal finger to nose bilaterally. Sensation: Sensation is normal to touch throughout. Reflexes (right/left): 2+ throughout. Plantars are downgoing bilaterally. WORK-UP: Lipid panel is a triglyceride of 146, cholesterol 221, LDL is 135 and ACL of the 56. TSH is 3.57 Vitamin B12 is 979. Serum folate is more than 20. Hemoglobin A1c is 5.5. CT of the head is reported as no acute intracranial hemorrhage or midline shift. There is mild diffuse age-related cerebral atrophy and moderate to advanced chronic small vessel ischemic changes noted. I personally reviewed the CT of the head and I do not appreciate any acute subacute ischemia. 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 CT angiography of the head and neck was reported as negative. MR the brain is reported as bilateral area of restricted diffusion consistent with cerebral vascular accident, consider embolic phenomena. Age-related changes of atrophy and chronic small vessel ischemia or underlying. Mild the sinus disease. In the body of the report it is reported that the patient has restricted diffusion in the peripheral aspect of the right cerebellar hemisphere, small focus in the left. There is restricted diffusion in the left thalamus. As well over the right frontal left frontal right parietal. Carotid duplex was reported as no hemodynamic significant stenosis of the proximal internal carotid arteries by Doppler criteria, and direct measurement of carotid stenosis. 2-D echo was reported as left ventricular wall thickness is normal. Ejection fraction of 55-60%. Left atrial size is normal. Routine EEG on 08/27/2021 is normal. Transesophageal echocardiogram is reported as no intracardiac thrombus. Normal left ventricular function. No evidence of shunting across the septum. Moderate atherosclerotic plaque involving the aorta. - Labs CBC & Chem 7: 08/26/21 09:58 08/27/21 16:44 Labs: Abnormal Lab Results - Last 24 Hours (Table) 08/27/21 Range/Units 16:44 Total Bilirubin 1.40 H (0.30-1.20) mg/dL Assessment and Plan Assessment: Acute Bilateral hemispheric stroke (presented with word finding difficulty and confusion). Seems embolic in nature (cardioembolic). Dyslipidemia Per family had similar episode of confusion on 05/2021 and does not recall what transpired that day. Possibly the patient has underlying mild cognitive impairment/dementia in addition New onset Hypertension Plan: * Continue aspirin 81 and Plavix 75 mg daily. The patient to continue on dual antiplatelets for now. Continue Lipitor 80 mg daily at bedtime for secondary stroke prophylaxis. LDL goal stroke is less than 70. * Continue every 4 hours neuro checks. * Continue cardiac monitoring. Ordered event monitor for 30 days. * PT, OT and speech therapy are consulted * We'll defer the rest of the medical management to primary team. * For DVT prophylaxis on subq heparin. * Upon discharge the patient needs to follow-up with a neurologist within 1-2 weeks as outpatient. The plan is discussed with the patient's daughter who is at bedside. Patient is clear from neurological perspective. Vu Gates M.D. Neuro-hospitalist Time with Patient: Less than 30
== END 2021-08-28 15:22 | disposition home health service (06) | DRG 65 ==
LOC: EC 09:28 → 6NMEDSUR 12:02 → OBSVTOIN 08-27 14:32
PROVIDERS: ADMIT Internal Medicine; ATTEND Internal Medicine
PROC: B246ZZ4 Ultrasonography of Right and Left Heart, Transesophageal (ICD-10-PCS; principal; 2021-08-28 10:00)
DX: I63.49 Cerebral infarction due to embolism of other cerebral artery (principal); E87.1 Hypo-osmolality and hyponatremia; R47.01 Aphasia; I10 Essential (primary) hypertension; E78.5 Hyperlipidemia, unspecified; R73.9 Hyperglycemia, unspecified; E86.0 Dehydration; F03.90 Unspecified dementia, unspecified severity, without behavioral disturbance, psychotic disturbance, mood disturbance, and anxiety; M60.9 Myositis, unspecified; R73.03 Prediabetes; Z79.899 Other long term (current) drug therapy; Z82.3 Family history of stroke; Z86.73 Personal history of transient ischemic attack (TIA), and cerebral infarction without residual deficits; Z20.822 Contact with and (suspected) exposure to COVID-19
CPT/HCPCS: 36415; 70450; 70496; 70498; 70551; 71046; 80053; 80061; 81001; 82607; 82746; 83036; 83090; 84443; 84484; 85025; 85610; 85730; 87635; 93005; 93270; 93306; 93312; 93320; 93325; 93880; 95816; 96360; 99285

== ENCOUNTER 2021-11-01 12:08 | Emergency (ER) | payer MEDICARE ==
[2021-11-01 12:23] VITALS: BP 157/86; PULSE 116; RESP 16; TEMP 97.1
--- NOTE | 2021-11-01 13:38 | ED ---
Psych HPI - General Chief Complaint: Psychiatric Symptoms Stated Complaint: Mental Health Time Seen by Provider: 11/01/21 12:30 Source: patient, EMS, RN notes reviewed Mode of arrival: EMS - History of Present Illness Initial Comments: 81-year-old male brought in by EMS for psych evaluation due to family concerns. Patient denied any suicidal ideations while the room. He notes he was trying to get a gun to put a sick or stone. 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 He notes that he has no history of depression. She denied any chest pain first breath headache nausea vomiting diarrhea constipation fever fatigue chills. - Related Data Previous Rx's Medication Instructions Recorded Aspirin 81 mg PO DAILY tab 08/28/21 Atorvastatin [Lipitor] 80 mg PO HS #30 tab 08/28/21 Clopidogrel [Plavix] 75 mg PO DAILY #30 tab 08/28/21 lisinopriL [Zestril] 2.5 mg PO DAILY #30 tab 08/28/21 Allergies Allergy/AdvReac Type Severity Reaction Status Date / Time No Known Allergies Allergy Verified 08/26/21 10:51 Review of Systems ROS Statement: Those systems with pertinent positive or pertinent negative responses have been documented in the HPI. ROS Other: All systems not noted in ROS Statement are negative. 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 History of Any Multi-Drug Resistant Organisms: None Reported Past Surgical History: Unable to Obtain Past Psychological History: No Psychological Hx Reported Smoking Status: Never smoker Past Alcohol Use History: None Reported Past Drug Use History: None Reported General Exam Limitations: no limitations General appearance: alert, in no apparent distress Head exam: Present: atraumatic, normocephalic, normal inspection Eye exam: Present: normal appearance, PERRL, EOMI. Absent: scleral icterus, conjunctival injection, periorbital swelling ENT exam: Present: normal exam, mucous membranes moist Neck exam: Present: normal inspection Respiratory exam: Present: normal lung sounds bilaterally. Absent: respiratory distress, wheezes, rales, rhonchi, stridor Cardiovascular Exam: Present: regular rate, normal rhythm, normal heart sounds. Absent: systolic murmur, diastolic murmur, rubs, gallop, clicks Neurological exam: Present: alert, oriented X3 Psychiatric exam: Present: normal affect, agitated Skin exam: Present: warm, dry, intact, normal color. Absent: rash Course Vital Signs 11/01/21 12:11 Temperature 97.1 F L Pulse Rate 116 H Respiratory 16 Rate Blood Pressure 157/86 O2 Sat by Pulse 92 L Oximetry Medical Decision Making - Medical Decision Making 81-year-old male presenting for psych evaluation for possible suicidal ideation. Patient is cleared for psych evaluation. EPS nurse notes the patient does not meet criteria for admission and was given a safety plan and resources. Case discussed with Dr. Ballard. Patient discharge home. Disposition Clinical Impression: Depression Disposition: HOME SELF-CARE Condition: Stable Instructions (If sedation given, give patient instructions): Depression (ED) Additional Instructions: Please return to the Emergency Department if symptoms worsen or any other concerns. Follow-up with primary care in 1-2 days. Use resources to seek help if needed. Is patient prescribed a controlled substance at d/c from ED?: No Referrals: Souleymane Persaud MD [Primary Care Provider] - 1-2 days Time of Disposition: 13:38
== END 2021-11-01 13:44 | disposition home or self-care (01) ==
LOC: EC 12:08
DX: F32.A Depression, unspecified (principal); Z79.82 Long term (current) use of aspirin; Z79.899 Other long term (current) drug therapy
CPT/HCPCS: 82075; 99284

== ENCOUNTER 2021-11-01 18:11 | Inpatient (IN) | payer MEDICARE ==
--- NOTE | 2021-11-01 18:33 | ED ---
Psych HPI - General Source: patient, family, RN notes reviewed Mode of arrival: ambulatory <Suresh Arthur - Last Filed: 11/01/21 18:52> <Wilton Pemberton - Last Filed: 11/01/21 19:18> - General Chief Complaint: Psychiatric Symptoms Stated Complaint: Mental Health eval Time Seen by Provider: 11/01/21 18:26 - History of Present Illness Initial Comments: This a 81-year-old male presents emergency from for psychiatric evaluation. Patient seen here earlier today after reports of depression, suicidal ideation at that time was determined that patient had a misunderstanding though upon further information and patient was brought back emergency department patient reportedly had a gun, but is starting to shoot himself. This was witnessed by police. Patient denies any physical complaints on new medications no other complaints. (Suresh Arthur) - Related Data Home Medications Medication Instructions Recorded Confirmed Sertraline [Zoloft] 25 mg PO HS 11/01/21 11/01/21 Previous Rx's Medication Instructions Recorded Atorvastatin [Lipitor] 80 mg PO HS #30 tab 08/28/21 Clopidogrel [Plavix] 75 mg PO DAILY #30 tab 08/28/21 lisinopriL [Zestril] 2.5 mg PO DAILY #30 tab 08/28/21 Allergies Allergy/AdvReac Type Severity Reaction Status Date / Time No Known Allergies Allergy Verified 11/01/21 19:09 Review of Systems ROS Other: All systems not noted in ROS Statement are negative. <Suresh Arthur - Last Filed: 11/01/21 18:52> ROS Other: All systems not noted in ROS Statement are negative. <Wilton Pemberton - Last Filed: 11/01/21 19:18> ROS Statement: Those systems with pertinent positive or pertinent negative responses have been documented in the HPI. 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, Dementia History of Any Multi-Drug Resistant Organisms: None Reported Past Surgical History: Unable to Obtain Past Psychological History: No Psychological Hx Reported Smoking Status: Never smoker Past Alcohol Use History: None Reported Past Drug Use History: None Reported <Suresh Arthur - Last Filed: 11/01/21 18:52> General Exam Limitations: no limitations General appearance: alert, in no apparent distress Head exam: Present: atraumatic, normocephalic, normal inspection Eye exam: Present: normal appearance, PERRL, EOMI. Absent: scleral icterus, conjunctival injection, periorbital swelling Neck exam: Present: normal inspection. Absent: tenderness, meningismus, lymphadenopathy Respiratory exam: Present: normal lung sounds bilaterally. Absent: respiratory distress, wheezes, rales, rhonchi, stridor Cardiovascular Exam: Present: regular rate, normal rhythm, normal heart sounds. Absent: systolic murmur, diastolic murmur, rubs, gallop, clicks <Suresh Arthur - Last Filed: 11/01/21 18:52> Medical Decision Making <Suresh Arthur - Last Filed: 11/01/21 18:52> <Wilton Pemberton - Last Filed: 11/01/21 19:18> - Medical Decision Making Patient evaluated by psychiatric services. Patient be admitted for psychiatric treatment. (Suresh Arthur) Patient seen by mental health services with plan for admission. They did request clinical certificate. Patient reevaluated by myself. Patient's history is not consistent with history provided. Positive clinical certificate completed. Family has concerns that patient was found with a gun trying to shoot himself. (Wilton Pemberton) Disposition Time of Disposition: 18:53 <Suresh Arthur - Last Filed: 11/01/21 18:52> <Wilton Pemberton - Last Filed: 11/01/21 19:18> Clinical Impression: Depression, Suicidal ideation Disposition: TRANSFER TO PSYCH HOSP/UNIT Referrals: Souleymane Persaud MD [Primary Care Provider] - 1-2 days
[2021-11-01] MEDS ORDERED: MAGNESIUM HYDROXIDE 2,400 MG/10 ML CUP PO PRN (20:33)
[2021-11-01] MEDS ORDERED: ACETAMINOPHEN TAB 325 MG TAB PO PRN (20:33)
[2021-11-01] MEDS ORDERED: MAG HYDROX/AL HYDROX/SIMETH 30 ML CUP PO PRN (20:33)
[2021-11-01] MEDS ORDERED: haloperidoL 5 MG TAB PO PRN (20:42)
[2021-11-01] MEDS ORDERED: SERTRALINE 25 MG TAB PO SCH (21:00)
[2021-11-01] MEDS ORDERED: HALOPERIDOL LACTATE 5 MG/ML 1 ML VIAL IM PRN (21:48)
[2021-11-01] MEDS ORDERED: HALOPERIDOL LACTATE 5 MG/ML 1 ML VIAL IM SCH (22:00)
[2021-11-01] MEDS: ATORVASTATIN 80 MG TAB PO SCH (23:09)
[2021-11-01 23:39] LABS: Basophils # (A) 0.1 k/uL (0-0.2); Basophils % (A) 1 %; Eosinophils # (A) 0.2 k/uL (0-0.7); Eosinophils % (A) 2 %; HCT 47.9 % (39.0-53.0); HGB 16.1 gm/dL (13.0-17.5); Lymphocytes # (A) 2.1 k/uL (1.0-4.8); Lymphocytes % (A) 19 %; MCHC 33.6 g/dL (31.0-37.0); MCV 98.1 fL (80.0-100.0); Mean Platelet Volume 7.8; Monocytes # (A) 1.1 k/uL (0-1.0); Monocytes % (A) 10 %; Neutrophils # (A) 7.3 k/uL (1.3-7.7); Neutrophils % (A) 67 %; Platelet Count 231 k/uL (150-450); RBC 4.88 m/uL (4.30-5.90); RDW 11.9 % (11.5-15.5)
[2021-11-01 23:48] LABS: ALT 34 U/L (4-49); AST 35 U/L (17-59); African American GFR (CKD) >90 (>60 ml/min/1.73 sqM); Albumin 4.2 g/dL (3.5-5.0); Alkaline Phosphatase 45 U/L (38-126); Anion Gap 7 mmol/L; Blood Urea Nitrogen 26 mg/dL (9-20); Calcium 9.4 mg/dL (8.4-10.2); Carbon Dioxide 28 mmol/L (22-30); Chloride 103 mmol/L (98-107); Glucose 108 mg/dL (74-99); Non-African American GFR(CKD) 83 (>60 ml/min/1.73 sqM); Potassium 4.4 mmol/L (3.5-5.1); Sodium 138 mmol/L (137-145); Total Bilirubin 2.8 mg/dL (0.2-1.3); Total Protein 6.9 g/dL (6.3-8.2)
[2021-11-02] MEDS: CLOPIDOGREL 75 MG TAB PO SCH (11:46)
--- NOTE | 2021-11-02 12:43 | P.HP ---
Psychiatric H&P - . H&P Date: 11/02/21 History & Physical: Allergies Allergy/AdvReac Type Severity Reaction Status Date / Time No Known Allergies Allergy Verified 11/01/21 22:47 Vital Signs Temp 98.7 F 11/02/21 03:10 Pulse 87 11/02/21 11:50 Resp 16 11/02/21 03:10 BP 141/77 11/02/21 11:50 Pulse Ox 94 L 11/01/21 22:37 Intake & Output 11/01/21 11/02/21 11/02/21 18:59 06:59 18:59 Weight 74.8 kg 62.1 kg Laboratory Last Values WBC 11.0 k/uL (3.8-10.6) H 11/01/21 23:02 RBC 4.88 m/uL (4.30-5.90) 11/01/21 23:02 Hgb 16.1 gm/dL (13.0-17.5) 11/01/21 23:02 Hct 47.9 % (39.0-53.0) 11/01/21 23:02 MCV 98.1 fL (80.0-100.0) 11/01/21 23:02 MCH 33.0 pg (25.0-35.0) 11/01/21 23:02 MCHC 33.6 g/dL (31.0-37.0) 11/01/21 23:02 RDW 11.9 % (11.5-15.5) 11/01/21 23:02 Plt Count 231 k/uL (150-450) 11/01/21 23:02 MPV 7.8 11/01/21 23:02 Neutrophils % 67 % 11/01/21 23:02 Lymphocytes % 19 % 11/01/21 23:02 Monocytes % 10 % 11/01/21 23:02 Eosinophils % 2 % 11/01/21 23:02 Basophils % 1 % 11/01/21 23:02 Neutrophils # 7.3 k/uL (1.3-7.7) 11/01/21 23:02 Lymphocytes # 2.1 k/uL (1.0-4.8) 11/01/21 23:02 Monocytes # 1.1 k/uL (0-1.0) H 11/01/21 23:02 Eosinophils # 0.2 k/uL (0-0.7) 11/01/21 23:02 Basophils # 0.1 k/uL (0-0.2) 11/01/21 23:02 Sodium 138 mmol/L (137-145) 11/01/21 23:02 Potassium 4.4 mmol/L (3.5-5.1) 11/01/21 23:02 Chloride 103 mmol/L (98-107) 11/01/21 23:02 Carbon Dioxide 28 mmol/L (22-30) 11/01/21 23:02 Anion Gap 7 mmol/L 11/01/21 23:02 BUN 26 mg/dL (9-20) H 11/01/21 23:02 Creatinine 0.83 mg/dL (0.66-1.25) 11/01/21 23:02 Est GFR (CKD-EPI)AfAm >90 (>60 ml/min/1.73 sqM) 11/01/21 23:02 Est GFR (CKD-EPI)NonAf 83 (>60 ml/min/1.73 sqM) 11/01/21 23:02 Glucose 108 mg/dL (74-99) H 11/01/21 23:02 Calcium 9.4 mg/dL (8.4-10.2) 11/01/21 23:02 Total Bilirubin 2.8 mg/dL (0.2-1.3) H 11/01/21 23:02 AST 35 U/L (17-59) 11/01/21 23:02 ALT 34 U/L (4-49) 11/01/21 23:02 Alkaline Phosphatase 45 U/L (38-126) 11/01/21 23:02 Total Protein 6.9 g/dL (6.3-8.2) 11/01/21 23:02 Albumin 4.2 g/dL (3.5-5.0) 11/01/21 23:02 TSH 3.080 mIU/L (0.465-4.680) 11/01/21 23:02 Coronavirus (PCR) Not Detected (Not Detectd) 11/01/21 19:26 11/02/21 12:43 IDENTIFYING DATA: Patient is a , employed, 81-year-old male with a significant history of stroke who presented to the emergency department under petition and certification due to suicidal ideation and increased anger. HPI: Patient presented to the hospital on 11/01/21, brought in due to concerns of suicidal ideation. The patient maintains that he had no intentions to ever take his life and that he was planning to "shoot some horses." He expresses that a horse on his property was lame and that he needed to get rid of that course. The patient does not endorse any significant symptoms of depression's been denying any suicidal or homicidal ideation, intention, and/or plan. He denies any auditory or visual hallucinations. He reports no paranoia or delusions. Patient vehemently denies any need for hospitalization. Collateral information was obtained by the patient's after the patient signed a release of information. The patient's Gege reports that, "Yesterday morning, he was in a bad mood. He took his gun out of the safe and laid it beside the door. I hid all the ammunition the day before. He indicated that killing himself was on his mind. I called our daughter who called 911 and police came out and then he did tell police that he would commit suicide. Ambulance came and took him to the hospital. It all started when our daughter got rid of one of his horses, he became upset and was angry when he was informed of this 2 days ago." In August, the patient presented with confusion to this hospital and was noted to have a stroke. 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 The patient's states that since the stroke, the patient has been displaying endorsing some depression as well as generalized confusion. 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 Prior to his stroke, the patient has no previous psychiatric history. PAST PSYCHIATRIC HISTORY: Patient states that no psychiatric history. Patient denies being on any psychiatric medications but Zoloft is a home medication that he has been prescribed for the last 2 months. Patient denies any previous psychiatric hospitalizations. Patient denies any psychiatric outpatient follow- up. Patient denies any history of suicide attempts in the past. PMH: Past Medical History: Unable to Obtain, Dementia History of Any Multi-Drug Resistant Organisms: None Reported Past Surgical History: Unable to Obtain Past Psychological History: No Psychological Hx Reported Smoking Status: Never smoker Past Alcohol Use History: None Reported Past Drug Use History: None Reported ALLERGIES: NO KNOWN DRUG ALLERGIES CHEMICAL DEPENDENCY HISTORY: Patient vehemently denies any tobacco, alcohol, marijuana, or illicit drug use. FAMILY PSYCHIATRIC/SUBSTANCE USE HISTORY: Patient denies. SOCIAL HISTORY: Patient was [place] patient is , and lives on a farm with his . They have adult children. 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 MENTAL STATUS EXAM: General Appearance: Patient appears to be stated age is alert, directable, and attempts to cooperate. Patient appears to have fair hygiene and grooming. Behavior: Patient is seated without any agitated behavior. Ornery. Speech: Patient's speech is fluent and nonpressured. Mood/Affect: Patient reports their mood is "annoyed," affect is irritable. Suicidality/Homicidality: Patient denies having any homicidal ideation intent or plan. Denies any suicidal ideations intent or plan Perceptions: Patient denies any visual hallucinations and denies any auditory hallucinations Though content/process: There is no evidence of any delusional thought content and thought process is linear and goal-directed. Memory and concentration: AOX3, grossly intact for the purposes of this session. Can spell "WORLD" backwards Judgment and insight: poor STRENGTHS/WEAKNESSES: Strength is that the patient has significant social support. Weakness is that the patient appears to have limited insight. INTELLECT: average IMPRESSIONS: Depressive disorder, unspecified Rule out neurocognitive disorder with behavioral disturbances PLAN: -Patient is admitted under involuntary status to [facility]HU for stabilization of psychiatric symptoms and safety. Patient's family would like to attempt to convince the patient to sign in voluntarily to the psychiatric unit. Will hold on the second clinical certificate and will reevaluate tomorrow. -Medications : We will increase Zoloft to 50 mg by mouth at bedtime for depression. This provider discussed with the patient's family and the patient antipsychotic medications and the risks/benefits of said medication. We discussed at length blackbox warning of increased cardiovascular events with patients in his age group presenting with psychosis. -Haldol PRN for agitation/aggression -UDS and UA are pending -Patient was informed of the risks, benefits and side effects of the medication. -Internal Medicine consult to perform medical evaluation and physical. -SW on board for discharge planning. Encourage patient to participate in groups to work on coping skills. 11/02/21 12:43
--- NOTE | 2021-11-02 19:35 | CONS ---
CONSULTATION HISTORY OF PRESENT ILLNESS: 81-year-old white male who was admitted to the hospital for psychiatric evaluation. He has had a stroke, history of stroke about 2 months ago. 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 He had to put one down. He had no ammunition and went to the store to buy ammunition. His family thought he was going to hurt himself. He said he was just going to put a horse down who was sick and he has been doing this his whole life. Anyway, he was admitted to hospital for psychiatric evaluation. No prior history since the stroke of any long-term side effects from stroke. He can swallow. Can move all 4 extremities. He can talk. His memory and he has no difficulty with getting his thoughts out. Vital signs: Temp 98.7, Pulse 87, respiratory 16, blood pressure 141/77, O2 94%. Cardiovascular S1, S2. Lungs clear. GI soft. Hematologic: Negative Homans. He is admitted for possible depression, generalized confusion and although he states this is a misunderstanding over his horses and what he was doing buying ammunition. He denies being suicidal or depressed. We will continue his home medicines. Await for psychiatrist to investigate him for worsening depression or any psych history. Otherwise continue current treatment. Prognosis is fairly good. MMODL / IJN: [id number] /
[2021-11-02 21:08] LABS: Appearance,Urine Clear (Clear); Bilirubin,Urine Negative (Negative); Blood,Urine Negative (Negative); Color,Urine Yellow; Glucose,Urine (UA) Negative (Negative); Ketones,Urine 1+ (Negative); Leukocyte Esterase,Urine Negative (Negative); Nitrite,Urine Negative (Negative); Protein,Urine Negative (Negative); Specific Gravity,Urine 1.022 (1.001-1.035); Urobilinogen,Urine <2.0 mg/dL (<2.0)
[2021-11-02] MEDS: SERTRALINE 50 MG TAB PO SCH (21:25)
[2021-11-02] MEDS: ATORVASTATIN 80 MG TAB PO SCH (21:25)
[2021-11-03 01:17] LABS: Amphetamine Screen,Urine Not Detected (NotDetected); Barbiturate Screen,Urine Not Detected (NotDetected); Benzodiazepines Screen,Urine Not Detected (NotDetected); Cocaine Screen,Urine Not Detected (NotDetected); Methadone Screen, Urine Not Detected (NotDetected); Opiate Screen,Urine Not Detected (NotDetected); Oxycodone Screen, Urine Not Detected (NotDetected); Phencyclidine Screen,Urine Not Detected (NotDetected); Tricyclic Antidepressant,Urine Not Detected (NotDetected); Urn Cannabinoid Scrn Not Detected (NotDetected)
[2021-11-03 07:11] VITALS: PULSE 65
[2021-11-03] MEDS: CLOPIDOGREL 75 MG TAB PO SCH (09:12)
--- NOTE | 2021-11-03 11:50 | P.PN ---
Progress Note - Text Progress Note Date: 11/03/21 Interval History: Patient was seen resting in bed and was directable and agreeable to speak with advertising copywriter in his room.. Currently, the patient is not endorsing any significant issues or concerns at this time. He continues to feel like his family overreacted in regards to his anger however displays poor insight into his actions that led up to this hospitalization. The patient appears to not remember the exact events leading up to his hospitalization. Otherwise, the patient is calm and cooperative with this provider and with staff. He is noted to be alert and oriented in all spheres at this time. He is currently denying any suicidal or homicidal ideation, intention, and/or plan. He is not reporting any auditory or visual hallucinations. He denies any paranoia or other delusions. The patient is willing to sign himself voluntarily into the psychiatric unit and has been adherent with Zoloft and is not endorsing any significant side effects at this time. Mental Status Exam: General Appearance: Patient appears to be stated age is alert, directable, and cooperative. Behavior: Patient is calmly seated without any agitated behavior. Speech: Patient's speech is fluent and nonpressured. Mood/Affect: Mood is improving mildly, affect is congruent and constricted. Suicidality/Homicidality: Patient denies having any suicidal or homicidal ideation intent or plan. Perceptions: Patient denies any visual hallucinations and denies any auditory hallucinations Though content/process: There is no evidence of any delusional thought content and thought process is linear and goal-directed. Memory and concentration: AOX3, grossly intact for the purposes of this session. Patient is unable to recall events leading up to this hospitalization. Judgment and insight: Improving mildly Vital Signs Temp 96.1 F L 11/03/21 06:52 Pulse 65 11/03/21 06:52 Resp 14 11/03/21 06:52 BP 105/64 11/03/21 06:52 Pulse Ox 95 11/03/21 06:52 Laboratory Results - Last 24 Hours 11/01/21 11/02/21 11/03/21 23:02 20:46 00:[address] Glu mg/dL 117 Hemoglobin A1c 5.7 Urine Color Yellow Urine Appearance Clear Urine pH 7.0 Ur Specific [place] 1.022 Urine Protein Negative Urine Glucose (UA) Negative Urine Ketones 1+ H Urine Blood Negative Urine Nitrite Negative Urine Bilirubin Negative Urine Urobilinogen <2.0 Ur Leukocyte Esterase Negative Urine Opiates Screen Not Detected Ur Oxycodone Screen Not Detected Urine Methadone Screen Not Detected Ur Propoxyphene Screen Not Detected Ur Barbiturates Screen Not Detected U Tricyclic Antidepress Not Detected Ur Phencyclidine Scrn Not Detected Ur Amphetamines Screen Not Detected U Methamphetamines Scrn Not Detected U Benzodiazepines Scrn Not Detected Urine Cocaine Screen Not Detected U Marijuana (THC) Screen Not Detected Assessment Major Neurocognitive disorder with behavioral disturbances Plan: -Patient continues to meet criteria for inpatient psychiatric admission for symptom stabilization and safety. Patient has signed adult voluntary form and medication consent and was placed in patient's chart. -Medications: Continue Zoloft 50 mg by mouth daily at bedtime for depression We will start Namenda 5 mg by mouth twice a day for neurocognitive disorder -When necessary Haldol for agitation/aggression. -SW on board for discharge planning. Encouraged the patient to participate in milieu.
[2021-11-03] MEDS: ATORVASTATIN 80 MG TAB PO SCH (21:07)
[2021-11-03] MEDS: SERTRALINE 50 MG TAB PO SCH (21:07)
[2021-11-03] MEDS: MEMANTINE 5 MG TAB PO SCH (21:07)
[2021-11-04] MEDS: CLOPIDOGREL 75 MG TAB PO SCH (09:09)
[2021-11-04] MEDS: MEMANTINE 5 MG TAB PO SCH ×2 (09:09→21:38)
--- NOTE | 2021-11-04 11:29 | P.PN ---
Progress Note - Text Progress Note Date: 11/04/21 Interval history: Patient was seen laying in his bed this morning and was directable and agreeable to speak with typewriter aligner. Patient claims that he is feeling bored while on the unit. He was fairly concrete and had a poverty of content in his thought process. He claims that his mood has been gradually improving and is denying any anxiety today. He asked several times about discharge. He appears to have superficial insight. He claims that he is able to sleep fairly last night and states "that's all I can do here is sleep". He claims that he has not been going to groups. At this time patient denies any suicidal or homicidal ideations intent or plan. Denies any Auditory or visual hallucinations. Patient denies any side effects from the medications and has been compliant with meds. Mental status exam: General Appearance: Patient appears to be elderly, thin, stated age is alert, di rectable, and attempts to be cooperative. Behavior: No agitated behavior. Patient is calm and directable Speech: Patient's speech is fluent and nonpressured. Mood/Affect: Mood is improving mildly, affect is congruent and constricted. Suicidality/Homicidality: Patient denies having any suicidal or homicidal ideation intent or plan. Perceptions: Patient denies any auditory or visual hallucinations. Though content/process: Focused on discharge. Minimizing his symptoms. Logical. Memory and concentration: AOX3, grossly intact for the purposes of this session Judgment and insight: Limited, improving mildly Assessment/Plan: Continue with current diagnosis. Patient continues to meet criteria for inpatient psychiatric admission for symptom stabilization and safety.Patient will be maintained on current psychotropic medication regimen. Monitor for medication compliance and for any psychotropic medication side effects. Will continue to monitor ongoing response to treatment. Encouraged participation in milieu. likely discharge tomorrow back home.
[2021-11-04] MEDS: ATORVASTATIN 80 MG TAB PO SCH (20:57)
[2021-11-04] MEDS: SERTRALINE 50 MG TAB PO SCH (20:58)
[2021-11-05 06:54] VITALS: BP 131/83; RESP 16; TEMP 97.5
[2021-11-05] MEDS: CLOPIDOGREL 75 MG TAB PO SCH (09:08)
[2021-11-05] MEDS: MEMANTINE 5 MG TAB PO SCH (09:08)
--- NOTE | 2021-11-05 11:34 | P.DS ---
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 Patient presented to the hospital on 11/01/21, brought in due to concerns of suicidal ideation. The patient maintains that he had no intentions to ever take his life and that he was planning to "shoot some horses." He expresses that a horse on his property was lame and that he needed to get rid of that course. The patient does not endorse any significant symptoms of depression's been denying any suicidal or homicidal ideation, intention, and/or plan. He denies any auditory or visual hallucinations. He reports no paranoia or delusions. Patient vehemently denies any need for hospitalization. Collateral information was obtained by the patient's after the patient signed a release of information. The patient's Gege reports that, "Yesterday morning, he was in a bad mood. He took his gun out of the safe and laid it beside the door. I hid all the ammunition the day before. He indicated that killing himself was on his mind. I called our daughter who called 911 and police came out and then he did tell police that he would commit suicide. Ambulance came and took him to the hospital. It all started when our daughter got rid of one of his horses, he became upset and was angry when he was informed of this 2 days ago." In August, the patient presented with confusion to this hospital and was noted to have a stroke. 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 The patient's states that since the stroke, the patient has been displaying endorsing some depression as well as generalized confusion. 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 Prior to his stroke, the patient has no previous psychiatric history. Patient states that no psychiatric history. Patient denies being on any psychiatric medications but Zoloft is a home medication that he has been prescribed for the last 2 months. Patient denies any previous psychiatric hospitalizations. Patient denies any psychiatric outpatient follow-up. Patient denies any history of suicide attempts in the past. Hospital course: Upon admission to the unit patient was initially presenting as ornery with little insight into the events leading up to the hospitalization. Patient was however directable and agreeable to commence treatment. Patient got along well with other patients on the unit and followed unit protocol. Patient was compliant with the medications and denied any side effects throughout hospital course. Patient was started on his home medications and his Zoloft was increased to 50 mg daily to address depression/anxiety which can occur post stroke. Patient spoke of his stressors and engaged in therapy both group and individual. Patient was also seen by medical team for history and physical exam. Patient was monitored on the psychiatric unit and displayed stability and was calm and cooperative with staff and peers. The patient's Zoloft was increased to 50 mg to address depression and irritability and Namenda was started to aid in slowing down neurocognitive decline. The patient gradually was more amenable and agreeable with treatment as well as with treatment recommendations. On the day of discharge, the patient is not endorsing any suicidal or homicidal ideation, intention, and/or plan. He is not reporting any auditory or visual hallucinations. He reports no paranoia or other delusions. Patients presses a strong desire to live for his health, his family, and his work. Patient reports that he finds it difficult to slow down from work as he feels like it is his work that keeps him alive. The patient does have access to firearms however the family is made aware and ammunition is kept separate from him. The patient does not have a significant history of substance abuse however was counseled on abstaining from all substances including alcohol and marijuana. Patient was counseled on importance of medication adherence and appropriate outpatient follow-up. Prior to discharge, family meeting will be arranged per geriatric social worker to answer questions and ensure safety. Mental status exam: General Appearance: Patient appears to be stated age is alert, pleasant, and cooperative. Patient is in no acute distress and has fair hygiene and grooming Behavior: Patient is calmly seated without any agitated behavior. Speech: Patient's speech is fluent and nonpressured. Mood/Affect: Patient reports their mood is "feeling good", affect is congruent and euthymic. Suicidality/Homicidality: Patient denies having any suicidal or homicidal ideation intent or plan. Perceptions: Patient denies any auditory or visual hallucinations. Though content/process: There is no evidence of any delusional thought content and thought process is linear and goal-directed. more future oriented Memory and concentration: AOX3, grossly intact for the purposes of this session. Can spell "WORLD" backwards correctly. Judgment and insight: Improved with guarded prognosis Vital Signs Temp 97.5 F L 11/05/21 06:42 Pulse 65 11/05/21 06:42 Resp 16 11/05/21 06:42 BP 131/83 11/05/21 06:42 Pulse Ox 97 11/05/21 06:42 Impression: Depressive disorder, unspecified Major Neurocognitive disorder with behavioral disturbances Plan: -Continue with discharge today as patient has improved and stabilized psychiatrically and is not currently an imminent threat to himself and/or others. Due to his history of vascular injury, the patient does present with an increased risk for cognitive decline and worsening of his mental condition compared to the general population. -Continue medications: Zoloft 50 mg by mouth at bedtime for depression/anxiety Namenda 5 mg by mouth twice a day for major neurocognitive disorder. -Patient was counseled on the need for medication compliance and appropriate follow-up at mental health and also primary care for medical issues. Patient verbalized understanding and agreed. -Social work to arrange for and conduct family meeting to ensure safety upon discharge and answer any questions/concerns. Social work also to arrange for patients follow up appointments for psychiatric care along with follow up with primary care provider. The patient is recommended to follow-up with an outpatient neurologist regarding neurocognitive disorder. -Patient counseled on abstaining from recreational drugs and marijuana and alcohol. Was informed/educated on the adverse effects on their physical and mental health. Patient verbally agreed and understood. -Patient was instructed to return to the hospital or seek immediate medical care if their psychiatric or medical symptoms do worsen or reoccur. -Psychoeducation and supportive therapy provided to patient. Risks and benefits of pharmacological treatment versus the risks and benefits of nontreatment weight and discussed With the patient and his . We discussed at length the possible addition of antipsychotic medications despite the black box warning of increased cardiovascular events. At this time during this hospital is , the patient displayed no behavioral concerns that would warrant the addition of an antipsychotic medication. This will be a discussion to be continued in the outpatient setting with his outpatient psychiatrist and neurologist. Laboratory Results WBC 11.0 k/uL (3.8-10.6) H 11/01/21 23:02 RBC 4.88 m/uL (4.30-5.90) 11/01/21 23:02 Hgb 16.1 gm/dL (13.0-17.5) 11/01/21 23: Hct 47.9 % (39.0-53.0) 11/01/21 23: MCV 98.1 fL (80.0-100.0) 11/01/21 23: MCH 33.0 pg (25.0-35.0) 11/01/21 23: MCHC 33.6 g/dL (31.0-37.0) 11/01/21 23:02 RDW 11.9 % (11.5-15.5) 11/01/21 23: Plt Count 231 k/uL (150-450) 11/01/21 23:02 MPV 7.8 11/01/21 23:02 Neutrophils % 67 % 11/01/21 23:02 Lymphocytes % 19 % 11/01/21 23:02 Monocytes % 10 % 11/01/21 23:02 Eosinophils % 2 % 11/01/21 23:02 Basophils % 1 % 11/01/21 23:02 Neutrophils # 7.3 k/uL (1.3-7.7) 11/01/21 23:02 Lymphocytes # 2.1 k/uL (1.0-4.8) 11/01/21 23: Monocytes # 1.1 k/uL (0-1.0) H 11/01/21 23:02 Eosinophils # 0.2 k/uL (0-0.7) 11/01/21 23:02 Basophils # 0.1 k/uL (0-0.2) 11/01/21 23:02 Sodium 138 mmol/L (137-145) 11/01/21 23:02 Potassium 4.4 mmol/L (3.5-5.1) 11/01/21 23:02 Chloride 103 mmol/L (98-107) 11/01/21 23:02 Carbon Dioxide 28 mmol/L (22-30) 11/01/21 23:02 Anion Gap 7 mmol/L 11/01/21 23:02 BUN 26 mg/dL (9-20) H 11/01/21 23:02 Creatinine 0.83 mg/dL (0.66-1.25) 11/01/21 23:02 Est GFR (CKD-EPI)AfAm >90 (>60 ml/min/1.73 sqM) 11/01/21 23:02 Est GFR (CKD-EPI)NonAf 83 (>60 ml/min/1.73 sqM) 11/01/21 23:02 Glucose 108 mg/dL (74-99) H 11/01/21 23:[address] Glu mg/dL 117 11/01/21 23:02 Hemoglobin A1c 5.7 % (4.0-6.0) 11/01/21 23:02 Calcium 9.4 mg/dL (8.4-10.2) 11/01/21 23:02 Total Bilirubin 2.8 mg/dL (0.2-1.3) H 11/01/21 23:02 AST 35 U/L (17-59) 11/01/21 23:02 ALT 34 U/L (4-49) 11/01/21 23:02 Alkaline Phosphatase 45 U/L (38-126) 11/01/21 23:02 Total Protein 6.9 g/dL (6.3-8.2) 11/01/21 23:02 Albumin 4.2 g/dL (3.5-5.0) 11/01/21 23:02 TSH 3.080 mIU/L (0.465-4.680) 11/01/21 23:02 Urine Color Yellow 11/02/21 20:46 Urine Appearance Clear (Clear) 11/02/21 20:46 Urine pH 7.0 (5.0-8.0) 11/02/21 20:46 Ur Specific [place] 1.022 (1.001-1.035) 11/02/21 20:46 Urine Protein Negative (Negative) 11/02/21 20:46 Urine Glucose (UA) Negative (Negative) 11/02/21 20:46 Urine Ketones 1+ (Negative) H 11/02/21 20:46 Urine Blood Negative (Negative) 11/02/21 20:46 Urine Nitrite Negative (Negative) 11/02/21 20:46 Urine Bilirubin Negative (Negative) 11/02/21 20:46 Urine Urobilinogen <2.0 mg/dL (<2.0) 11/02/21 20:46 Ur Leukocyte Esterase Negative (Negative) 11/02/21 20:46 Urine Opiates Screen Not Detected (NotDetected) 11/03/21 00:00 Ur Oxycodone Screen Not Detected (NotDetected) 11/03/21 00:00 Urine Methadone Screen Not Detected (NotDetected) 11/03/21 00:00 Ur Propoxyphene Screen Not Detected (NotDetected) 11/03/21 00:00 Ur Barbiturates Screen Not Detected (NotDetected) 11/03/21 00:00 U Tricyclic Antidepress Not Detected (NotDetected) 11/03/21 00:00 Ur Phencyclidine Scrn Not Detected (NotDetected) 11/03/21 00:00 Ur Amphetamines Screen Not Detected (NotDetected) 11/03/21 00:00 U Methamphetamines Scrn Not Detected (NotDetected) 11/03/21 00:00 U Benzodiazepines Scrn Not Detected (NotDetected) 11/03/21 00:00 Urine Cocaine Screen Not Detected (NotDetected) 11/03/21 00:00 U Marijuana (THC) Screen Not Detected (NotDetected) 11/03/21 00:00 Coronavirus (PCR) Not Detected (Not Detectd) 11/01/21 19:26 Allergies Allergy/AdvReac Type Severity Reaction Status Date / Time No Known Allergies Allergy Verified 11/01/21 22:47 Patient Condition at Discharge: Stable Plan - Discharge Summary Discharge Rx Participant: Yes New Discharge Prescriptions: New Memantine [Namenda] 5 mg PO BID 30 Days tab Clopidogrel [Plavix] 75 mg PO DAILY 30 Days tab Atorvastatin [Lipitor] 80 mg PO HS 30 Days tab lisinopriL [Zestril] 2.5 mg PO DAILY 30 Days tab Sertraline [Zoloft] 50 mg PO HS 30 Days tab Discontinued Atorvastatin [Lipitor] 80 mg PO HS #30 tab Clopidogrel [Plavix] 75 mg PO DAILY #30 tab Sertraline [Zoloft] 25 mg PO HS lisinopriL [Zestril] 2.5 mg PO DAILY #30 tab Discharge Medication List Atorvastatin [Lipitor] 80 mg PO HS 30 Days tab 11/05/21 [Rx] Clopidogrel [Plavix] 75 mg PO DAILY 30 Days tab 11/05/21 [Rx] Memantine [Namenda] 5 mg PO BID 30 Days tab 11/05/21 [Rx] Sertraline [Zoloft] 50 mg PO HS 30 Days tab 11/05/21 [Rx] lisinopriL [Zestril] 2.5 mg PO DAILY 30 Days tab 11/05/21 [Rx] Follow up Appointment(s)/Referral(s): [facility] - 11/04/21 5:30 pm (Dr Montiel) Souleymane Persaud MD [Primary Care Provider] - 1-2 days Patient Instructions/Handouts: Help Prevent Suicide (DC) Activity/Diet/Wound Care/Special Instructions: Activity and diet as tolerated. Avoid the use of street drugs and alcohol. Take all medications as prescribed. When you are in need of refills on your medications please contact your medical provider and/or outpatient psychiatrist to have this done. Please go to scheduled outpatient appointment for aftercare treatment. If symptoms return or become worse, call the crisis line at and/or go to the nearest emergency room for evaluation Discharge Disposition: HOME SELF-CARE
== END 2021-11-05 13:00 | disposition home or self-care (01) | DRG 881 ==
LOC: EC 18:11 → 3MHU 20:30
PROVIDERS: ADMIT Psychiatry & Neurology Psychiatry; ATTEND Psychiatry & Neurology Psychiatry
DX: F32.A Depression, unspecified (principal); F01.51 Vascular dementia, unspecified severity, with behavioral disturbance; R45.851 Suicidal ideations; F41.9 Anxiety disorder, unspecified; Z20.822 Contact with and (suspected) exposure to COVID-19; Z79.02 Long term (current) use of antithrombotics/antiplatelets; Z79.899 Other long term (current) drug therapy; Z86.73 Personal history of transient ischemic attack (TIA), and cerebral infarction without residual deficits
CPT/HCPCS: 80053; 80306; 81003; 82075; 83036; 84443; 85025; 87635; 93005; 99285

== ENCOUNTER 2023-03-11 13:50 | Inpatient (IN) | payer MEDICARE ==
--- NOTE | 2023-03-11 14:59 | ED ---
General Adult HPI - General Source: patient, family, RN notes reviewed Mode of arrival: wheelchair <Anna Farley - Last Filed: 03/11/23 14:58> - General Source: RN notes reviewed, old records reviewed - History of Present Illness -: days(s) Radiation: non-radiation Quality: other Consistency: constant Improves with: none Worsens with: none Associated Symptoms: loss of appetite, weakness Treatments Prior to Arrival: none <Amarjit You - Last Filed: 03/13/23 16:33> - General Chief complaint: Weakness Stated complaint: weak Time Seen by Provider: 03/11/23 14:58 - History of Present Illness Initial comments: 82-year-old male presents to the emergency department the chief complaint of generalized weakness and fatigue worsening over the last week. Denies chest pain shortness breath, palpitations. (Anna Farley) This is a 82-year-old male DF for evaluation patient presents today for evaluation of weakness patient has had some inability and difficulty in breathing especially yesterday. No recent travel history no sick contacts presents with significant cough and congestion coughing up mucus, not feeling well weakness no nausea vomiting or diarrhea. Denies shortness of breath (Amarjit Locke pp) - Related Data Home Medications Medication Instructions Recorded Confirmed Sertraline [Zoloft] 75 mg PO HS 03/11/23 03/11/23 Previous Rx's Medication Instructions Recorded Atorvastatin [Lipitor] 80 mg PO HS 30 Days tab 11/05/21 Clopidogrel [Plavix] 75 mg PO DAILY 30 Days tab 11/05/21 lisinopriL [Zestril] 2.5 mg PO DAILY 30 Days tab 11/05/21 Allergies Allergy/AdvReac Type Severity Reaction Status Date / Time No Known Allergies Allergy Verified 03/11/23 18:15 Review of Systems ROS Other: All systems not noted in ROS Statement are negative. <Anna Farley - Last Filed: 03/11/23 14:58> ROS Other: All systems not noted in ROS Statement are negative. <Amarjit You - Last Filed: 03/13/23 16:33> ROS Statement: Those systems with pertinent positive or pertinent negative responses have been documented in the HPI. 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 Absent: scleral icterus, conjunctival injection, periorbital swelling ENT exam: Present: normal exam, mucous membranes dry Neck exam: Present: normal inspection. Absent: tenderness, meningismus, lymphadenopathy Respiratory exam: Present: normal lung sounds bilaterally. Absent: respiratory distress, wheezes, rales, rhonchi, stridor Cardiovascular Exam: Present: regular rate, normal rhythm, normal heart sounds. Absent: systolic murmur, diastolic murmur, rubs, gallop, clicks GI/Abdominal exam: Present: soft, normal bowel sounds. Absent: distended, tenderness, guarding, rebound, rigid Extremities exam: Present: normal inspection, full ROM, normal capillary refill. Absent: tenderness, pedal edema, joint swelling, calf tenderness Back exam: Present: normal inspection Neurological exam: Present: alert, oriented X3, CN II-XII intact Psychiatric exam: Present: normal affect, normal mood Skin exam: Present: warm, dry, intact, normal color. Absent: rash <Amarjit You - Last Filed: 03/13/23 16:33> - General Exam Comments Initial Comments: Visual Physical Exam Vital signs reviewed General: Well-appearing, nontoxic, no acute distress. Head: Normocephalic, atraumatic Eyes: PERRLA, EOMI ENT: Airway patent Chest: Nonlabored breathing Skin: No visual rash, normal skin tone Neuro: Alert and oriented 3 Musculoskeletal: No gross abnormalities (Anna Farley) Persistent fevers (Amarjit You) Course <Amarjit You - Last Filed: 03/13/23 16:33> Vital Signs 03/11/23 03/11/23 03/11/23 14:06 15:37 15:40 Temperature 100.3 F H Pulse Rate 96 73 76 Respiratory 18 21 12 Rate Blood Pressure 112/59 131/78 O2 Sat by Pulse 93 L 95 Oximetry 03/11/23 03/11/23 03/11/23 15:44 15:50 16:00 Temperature 98.4 F 98.9 F Pulse Rate 73 72 71 Respiratory 16 15 16 Rate Blood Pressure 131/78 131/78 131/78 O2 Sat by Pulse 97 98 97 Oximetry 03/11/23 03/11/23 03/11/23 16:10 16:20 16:30 Temperature Pulse Rate 77 79 77 Respiratory 19 18 22 Rate Blood Pressure 110/69 110/69 110/69 O2 Sat by Pulse 97 96 97 Oximetry 03/11/23 03/11/23 03/11/23 16:40 16:50 17:00 Temperature Pulse Rate 78 72 74 Respiratory 20 16 11 L Rate Blood Pressure 121/74 121/74 121/74 O2 Sat by Pulse 96 Oximetry 03/11/23 03/11/23 03/11/23 17:10 17:20 17:30 Temperature Pulse Rate 76 73 Respiratory 16 11 L 13 Rate Blood Pressure 137/81 137/81 137/81 O2 Sat by Pulse Oximetry 03/11/23 03/11/23 03/11/23 17:40 17:50 18:00 Temperature Pulse Rate 73 76 74 Respiratory 16 7 L 17 Rate Blood Pressure 96/63 96/63 96/63 O2 Sat by Pulse 96 Oximetry 03/11/23 03/11/23 03/11/23 18:10 18:20 18:30 Temperature Pulse Rate 70 71 64 Respiratory 15 12 14 Rate Blood Pressure 97/57 97/57 97/57 O2 Sat by Pulse 97 Oximetry 03/11/23 03/11/23 03/11/23 18:40 18:50 19:00 Temperature Pulse Rate 65 64 62 Respiratory 14 14 13 Rate Blood Pressure 90/57 90/57 90/57 O2 Sat by Pulse 98 97 97 Oximetry 03/11/23 03/11/23 03/11/23 19:10 19:20 19:30 Temperature Pulse Rate 63 64 Respiratory 12 8 L 12 Rate Blood Pressure 91/58 91/58 91/58 O2 Sat by Pulse 97 98 96 Oximetry 03/11/23 03/11/23 03/11/23 19:40 19:50 20:00 Temperature Pulse Rate 60 60 58 L Respiratory 13 13 13 Rate Blood Pressure 98/60 98/60 98/60 O2 Sat by Pulse 96 97 98 Oximetry 03/11/23 03/11/23 03/11/23 20:10 20:20 20:30 Temperature Pulse Rate 59 L 58 L 66 Respiratory 12 10 L 16 Rate Blood Pressure 101/58 101/58 101/58 O2 Sat by Pulse 98 98 98 Oximetry 03/11/23 03/11/23 03/11/23 20:40 20:50 21:00 Temperature 98.9 F Pulse Rate 62 53 L 54 L Respiratory 11 L 21 7 L Rate Blood Pressure 102/63 102/63 102/63 O2 Sat by Pulse 97 96 98 Oximetry 03/11/23 03/11/23 03/11/23 21:10 21:20 21:30 Temperature Pulse Rate 80 63 61 Respiratory 16 14 11 L Rate Blood Pressure 98/60 98/60 98/60 O2 Sat by Pulse 90 L 96 95 Oximetry 03/11/23 03/11/23 03/11/23 21:40 21:50 22:00 Temperature Pulse Rate 65 57 L 59 L Respiratory 14 16 14 Rate Blood Pressure 100/64 100/64 100/64 O2 Sat by Pulse 94 L 96 95 Oximetry 03/11/23 03/11/23 03/11/23 22:10 22:20 22:30 Temperature Pulse Rate 65 53 L Respiratory 16 16 Rate Blood Pressure 106/64 106/64 106/64 O2 Sat by Pulse 98 96 Oximetry 03/11/23 03/11/23 03/11/23 22:40 22:50 23:00 Temperature Pulse Rate 54 L 70 58 L Respiratory 11 L 17 11 L Rate Blood Pressure 107/60 107/60 107/60 O2 Sat by Pulse 96 90 L 97 Oximetry 03/11/23 23:11 Temperature 98.8 F Pulse Rate 74 Respiratory 16 Rate Blood Pressure 111/64 O2 Sat by Pulse 96 Oximetry - Reevaluation(s) Reevaluation #1: 03/11/23 22:18 Medical records reviewed (Amarjit You) Reevaluation #2: 03/11/23 22:18 Patient has no change in symptoms here in the ER (Amarjit You) Reevaluation #3: 03/11/23 22:18 Patient informed results and questions answered (Amarjit You) Reevaluation #4: 03/11/23 22:18 Was pt. sent in by a medical professional or institution? @ -no Did you speak to anyone other than the patient for history? @ -no Did you review nursing and triage notes? @ -agree Were old charts reviewed? @ -no Differential Diagnosis? @ -prior EKG interpreted by me (3pts min.)? @ -yes X-rays interpreted by me (1pt min.)? @ -yes CT interpreted by me (1pt min.)? @ -no U/S interpreted by me (1pt. min.)? @ -no What testing was considered but not performed? (CT, X-rays, U/S, labs)? Why? @ -no What meds were considered but not given? Why? @ -no Did you discuss the management of the patient with other professionals? @ -no Did you reconcile home meds? @ -no Was smoking cessation discussed for >3mins.? @ -no Was critical care preformed (if so, how long)? @ -no Were there social determinants of health that impacted care today? How? (Homelessness, low income, unemployed, alcoholism, drug addiction, transportation, low edu. Level, literacy, decrease access to med. care, longterm, rehab)? @ -no Was there de-escalation of care discussed even if they declined? (Discuss DNR or withdrawal of care, Hospice)? @ -no What co-morbidities impacted this encounter? (DM, HTN, Smoking, COPD, CAD, Cancer, CVA, Hep., AIDS, mental health diagnosis, sleep apnea, morbid obesity)? @ -none Was patient admitted / discharged? @ -dc Undiagnosed new problem with uncertain prognosis? @ -no Drug Therapy requiring intensive monitoring for toxicity (Heparin, Nitro, Insulin, Cardizem)? @ -no Were any procedures done? @ -no Diagnosis/symptom? @ -fever,pna Acute, or Chronic, or Acute on Chronic? @ -acute Uncomplicated (without systemic symptoms) or Complicated (systemic symptoms)? @ -uncomplicated Side effects of treatment? @ -no Exacerbation, Progression, or Severe Exacerbation] @ -no Poses a threat to life or bodily function? @ -yes, sepsis (Amarjit You) Reevaluation #5: 03/11/23 22:18 Differential Weakness: Hypoglycemia, shock, sepsis, hyponatremia, anemia, infection, PA, ETOH, adverse medicine reaction, overdose, stroke, this is not meant to be an all-inclusive list. (Amarjit You) - Consultations Consultation #1: spoke w GIAN viramontes for admission (Amarjit You) EKG Findings - EKG Comments: EKG Findings:: EKG is sinus 84 MS 178 QRS 74 QTc 400 - EKG Results: EKG: interpreted by ERMD <Amarjit You - Last Filed: 03/13/23 16:33> Medical Decision Making - Lab Data Result diagrams: 03/13/23 06:29 03/13/23 06:29 - Radiology Data Radiology results: report reviewed (Chest x-rays likely for chronic changes), image reviewed <Amarjit You - Last Filed: 03/13/23 16:33> - Medical Decision Making 82 male to the emergency department for evaluation patient presented to us today for evaluation of cough congestion fever walking pneumonia, patient be admitted for IV antibiotics symptom management and hydration. (Amarjit You) - Lab Data Lab Results 03/11/23 03/11/23 03/11/23 Range/Units 15:25 15:25 15:25 WBC 15.6 H (3.8-10.6) k/uL RBC 5.01 (4.30-5.90) m/uL Hgb 15.8 (13.0-17.5) gm/dL Hct 46.8 (39.0-53.0) % MCV 93.4 (80.0-100.0) fL MCH 31.6 (25.0-35.0) pg MCHC 33.8 (31.0-37.0) g/dL RDW 12.3 (11.5-15.5) % Plt Count 217 (150-450) k/uL MPV 7.8 Neutrophils % 85 % Lymphocytes % 7 % Monocytes % 5 % Eosinophils % 2 % Basophils % 0 % Neutrophils # 13.3 H (1.3-7.7) k/uL Lymphocytes # 1.1 (1.0-4.8) k/uL Monocytes # 0.8 (0-1.0) k/uL Eosinophils # 0.3 (0-0.7) k/uL Basophils # 0.0 (0-0.2) k/uL PT 10.7 (9.0-12.0) sec INR 1.0 (<1.2) APTT 23.8 (22.0-30.0) sec Sodium 136 L (137-145) mmol/L Potassium 4.0 (3.5-5.1) mmol/L Chloride 100 (98-107) mmol/L Carbon Dioxide 25 (22-30) mmol/L Anion Gap 11 mmol/L BUN 27 H (9-20) mg/dL Creatinine 0.83 (0.66-1.25) mg/dL Est GFR (CKD-EPI)AfAm >90 (>60 ml/min/1.73 sqM) Est GFR (CKD-EPI)NonAf 82 (>60 ml/min/1.73 sqM) Glucose 116 H (74-99) mg/dL Plasma Lactic Acid Srinivas (0.7-2.0) mmol/L Calcium 9.1 (8.4-10.2) mg/dL Phosphorus (2.5-4.5) mg/dL Magnesium (1.6-2.3) mg/dL Total Bilirubin 3.0 H (0.2-1.3) mg/dL AST 34 (17-59) U/L ALT 37 (4-49) U/L Alkaline Phosphatase 55 (38-126) U/L Troponin I (0.000-0.034) ng/mL NT-Pro-B Natriuret Pep pg/mL Total Protein 6.7 (6.3-8.2) g/dL Albumin 4.2 (3.5-5.0) g/dL TSH (0.465-4.680) mIU/L Urine Color Urine Appearance (Clear) Urine pH (5.0-8.0) Ur Specific [place] (1.001-1.035) Urine Protein (Negative) Urine Glucose (UA) (Negative) Urine Ketones (Negative) Urine Blood (Negative) Urine Nitrite (Negative) Urine Bilirubin (Negative) Urine Urobilinogen (<2.0) mg/dL Ur Leukocyte Esterase (Negative) Urine RBC (0-5) /hpf Urine Mucus (None) /hpf Influenza Type A (PCR) (Not Detectd) Influenza Type B (PCR) (Not Detectd) RSV (PCR) (Not Detectd) SARS-CoV-2 (PCR) (Not Detectd) 03/11/23 03/11/23 03/11/23 Range/Units 15:25 15:44 15:54 WBC 14.4 H (3.8-10.6) k/uL RBC 5.27 (4.30-5.90) m/uL Hgb 17.0 (13.0-17.5) gm/dL Hct 49.6 (39.0-53.0) % MCV 94.1 (80.0-100.0) fL MCH 32.4 (25.0-35.0) pg MCHC 34.4 (31.0-37.0) g/dL RDW 12.4 (11.5-15.5) % Plt Count 220 (150-450) k/uL MPV 8.2 Neutrophils % 85 % Lymphocytes % 7 % Monocytes % 5 % Eosinophils % 2 % Basophils % 0 % Neutrophils # 12.2 H (1.3-7.7) k/uL Lymphocytes # 1.1 (1.0-4.8) k/uL Monocytes # 0.8 (0-1.0) k/uL Eosinophils # 0.2 (0-0.7) k/uL Basophils # 0.0 (0-0.2) k/uL PT (9.0-12.0) sec INR (<1.2) APTT (22.0-30.0) sec Sodium (137-145) mmol/L Potassium (3.5-5.1) mmol/L Chloride (98-107) mmol/L Carbon Dioxide (22-30) mmol/L Anion Gap mmol/L BUN (9-20) mg/dL Creatinine (0.66-1.25) mg/dL Est GFR (CKD-EPI)AfAm (>60 ml/min/1.73 sqM) Est GFR (CKD-EPI)NonAf (>60 ml/min/1.73 sqM) Glucose (74-99) mg/dL Plasma Lactic Acid Srinivas (0.7-2.0) mmol/L Calcium (8.4-10.2) mg/dL Phosphorus (2.5-4.5) mg/dL Magnesium (1.6-2.3) mg/dL Total Bilirubin (0.2-1.3) mg/dL AST (17-59) U/L ALT (4-49) U/L Alkaline Phosphatase (38-126) U/L Troponin I 0.014 (0.000-0.034) ng/mL NT-Pro-B Natriuret Pep pg/mL Total Protein (6.3-8.2) g/dL Albumin (3.5-5.0) g/dL TSH (0.465-4.680) mIU/L Urine Color Urine Appearance (Clear) Urine pH (5.0-8.0) Ur Specific [place] (1.001-1.035) Urine Protein (Negative) Urine Glucose (UA) (Negative) Urine Ketones (Negative) Urine Blood (Negative) Urine Nitrite (Negative) Urine Bilirubin (Negative) Urine Urobilinogen (<2.0) mg/dL Ur Leukocyte Esterase (Negative) Urine RBC (0-5) /hpf Urine Mucus (None) /hpf Influenza Type A (PCR) Not Detected (Not Detectd) Influenza Type B (PCR) Not Detected (Not Detectd) RSV (PCR) Not Detected (Not Detectd) SARS-CoV-2 (PCR) Not Detected (Not Detectd) 03/11/23 03/11/23 03/11/23 Range/Units 15:54 15:54 15:54 WBC (3.8-10.6) k/uL RBC (4.30-5.90) m/uL Hgb (13.0-17.5) gm/dL Hct (39.0-53.0) % MCV (80.0-100.0) fL MCH (25.0-35.0) pg MCHC (31.0-37.0) g/dL RDW (11.5-15.5) % Plt Count (150-450) k/uL MPV Neutrophils % % Lymphocytes % % Monocytes % % Eosinophils % % Basophils % % Neutrophils # (1.3-7.7) k/uL Lymphocytes # (1.0-4.8) k/uL Monocytes # (0-1.0) k/uL Eosinophils # (0-0.7) k/uL Basophils # (0-0.2) k/uL PT (9.0-12.0) sec INR (<1.2) APTT (22.0-30.0) sec Sodium (137-145) mmol/L Potassium (3.5-5.1) mmol/L Chloride (98-107) mmol/L Carbon Dioxide (22-30) mmol/L Anion Gap mmol/L BUN (9-20) mg/dL Creatinine (0.66-1.25) mg/dL Est GFR (CKD-EPI)AfAm (>60 ml/min/1.73 sqM) Est GFR (CKD-EPI)NonAf (>60 ml/min/1.73 sqM) Glucose (74-99) mg/dL Plasma Lactic Acid Srinivas 1.2 (0.7-2.0) mmol/L Calcium (8.4-10.2) mg/dL Phosphorus 3.5 (2.5-4.5) mg/dL Magnesium 2.1 (1.6-2.3) mg/dL Total Bilirubin (0.2-1.3) mg/dL AST (17-59) U/L ALT (4-49) U/L Alkaline Phosphatase (38-126) U/L Troponin I (0.000-0.034) ng/mL NT-Pro-B Natriuret Pep 420 pg/mL Total Protein (6.3-8.2) g/dL Albumin (3.5-5.0) g/dL TSH 1.810 (0.465-4.680) mIU/L Urine Color Urine Appearance (Clear) Urine pH (5.0-8.0) Ur Specific [place] (1.001-1.035) Urine Protein (Negative) Urine Glucose (UA) (Negative) Urine Ketones (Negative) Urine Blood (Negative) Urine Nitrite (Negative) Urine Bilirubin (Negative) Urine Urobilinogen (<2.0) mg/dL Ur Leukocyte Esterase (Negative) Urine RBC (0-5) /hpf Urine Mucus (None) /hpf Influenza Type A (PCR) (Not Detectd) Influenza Type B (PCR) (Not Detectd) RSV (PCR) (Not Detectd) SARS-CoV-2 (PCR) (Not Detectd) 03/11/23 Range/Units 19:21 WBC (3.8-10.6) k/uL RBC (4.30-5.90) m/uL Hgb (13.0-17.5) gm/dL Hct (39.0-53.0) % MCV (80.0-100.0) fL MCH (25.0-35.0) pg MCHC (31.0-37.0) g/dL RDW (11.5-15.5) % Plt Count (150-450) k/uL MPV Neutrophils % % Lymphocytes % % Monocytes % % Eosinophils % % Basophils % % Neutrophils # (1.3-7.7) k/uL Lymphocytes # (1.0-4.8) k/uL Monocytes # (0-1.0) k/uL Eosinophils # (0-0.7) k/uL Basophils # (0-0.2) k/uL PT (9.0-12.0) sec INR (<1.2) APTT (22.0-30.0) sec Sodium (137-145) mmol/L Potassium (3.5-5.1) mmol/L Chloride (98-107) mmol/L Carbon Dioxide (22-30) mmol/L Anion Gap mmol/L BUN (9-20) mg/dL Creatinine (0.66-1.25) mg/dL Est GFR (CKD-EPI)AfAm (>60 ml/min/1.73 sqM) Est GFR (CKD-EPI)NonAf (>60 ml/min/1.73 sqM) Glucose (74-99) mg/dL Plasma Lactic Acid Srinivas (0.7-2.0) mmol/L Calcium (8.4-10.2) mg/dL Phosphorus (2.5-4.5) mg/dL Magnesium (1.6-2.3) mg/dL Total Bilirubin (0.2-1.3) mg/dL AST (17-59) U/L ALT (4-49) U/L Alkaline Phosphatase (38-126) U/L Troponin I (0.000-0.034) ng/mL NT-Pro-B Natriuret Pep pg/mL Total Protein (6.3-8.2) g/dL Albumin (3.5-5.0) g/dL TSH (0.465-4.680) mIU/L Urine Color Yellow Urine Appearance Clear (Clear) Urine pH 6.0 (5.0-8.0) Ur Specific [place] 1.020 (1.001-1.035) Urine Protein Negative (Negative) Urine Glucose (UA) Negative (Negative) Urine Ketones Negative (Negative) Urine Blood Small H (Negative) Urine Nitrite Negative (Negative) Urine Bilirubin Negative (Negative) Urine Urobilinogen <2.0 (<2.0) mg/dL Ur Leukocyte Esterase Negative (Negative) Urine RBC 16 H (0-5) /hpf Urine Mucus Occasional H (None) /hpf Influenza Type A (PCR) (Not Detectd) Influenza Type B (PCR) (Not Detectd) RSV (PCR) (Not Detectd) SARS-CoV-2 (PCR) (Not Detectd) Disposition <Anna Farley - Last Filed: 03/11/23 14:58> Is patient prescribed a controlled substance at d/c from ED?: No Time of Disposition: 20:05 <Amarjit You - Last Filed: 03/13/23 16:33> Clinical Impression: Dehydration, Altered mental status, Weakness, Fever, Bronchitis, Pneumonia Disposition: ADMITTED IP TO THIS HOSP Condition: Fair
--- NOTE | 2023-03-11 15:36 | XR ---
EXAMINATION TYPE: XR chest 2V DATE OF EXAM: 03/11/2023 COMPARISON: Chest x-ray August 26, 2021 HISTORY: Weakness. TECHNIQUE: Frontal and lateral views of the chest are obtained. FINDINGS: There is some chronic parenchymal changes bilaterally without suspicious focal air space o pacity, pleural effusion, or pneumothorax seen. The cardiac silhouette size is mildly enlarged with new overlying loop recorder. The osseous structures are demineralized. Some compression type fractu res near the thoracolumbar junction are redemonstrated. IMPRESSION: Chronic changes and cardiomegaly without acute pulmonary process.
[2023-03-11 15:51] LABS: Basophils % (A) 0 %; Eosinophils # (A) 0.3 k/uL (0-0.7); Eosinophils % (A) 2 %; HCT 46.8 % (39.0-53.0); HGB 15.8 gm/dL (13.0-17.5); Lymphocytes # (A) 1.1 k/uL (1.0-4.8); Lymphocytes % (A) 7 %; MCH 31.6 pg (25.0-35.0); MCHC 33.8 g/dL (31.0-37.0); MCV 93.4 fL (80.0-100.0); Mean Platelet Volume 7.8; Monocytes # (A) 0.8 k/uL (0-1.0); Monocytes % (A) 5 %; Neutrophils # (A) 13.3 k/uL (1.3-7.7); Neutrophils % (A) 85 %; Platelet Count 217 k/uL (150-450); RBC 5.01 m/uL (4.30-5.90); RDW 12.3 % (11.5-15.5); WBC 15.6 k/uL (3.8-10.6)
[2023-03-11] MEDS ORDERED: SODIUM CHLORIDE 0.9% 1,000 ML IV STA (15:54)
[2023-03-11 16:02] LABS: Partial Thromboplastin Time 23.8 sec (22.0-30.0); Prothrombin Time 10.7 sec (9.0-12.0)
[2023-03-11 16:12] LABS: ALT 37 U/L (4-49); AST 34 U/L (17-59); African American GFR (CKD) >90 (>60 ml/min/1.73 sqM); Albumin 4.2 g/dL (3.5-5.0); Alkaline Phosphatase 55 U/L (38-126); Anion Gap 11 mmol/L; Blood Urea Nitrogen 27 mg/dL (9-20); Calcium 9.1 mg/dL (8.4-10.2); Carbon Dioxide 25 mmol/L (22-30); Chloride 100 mmol/L (98-107); Glucose 116 mg/dL (74-99); Non-African American GFR(CKD) 82 (>60 ml/min/1.73 sqM); Sodium 136 mmol/L (137-145); Total Protein 6.7 g/dL (6.3-8.2)
[2023-03-11] MEDS ORDERED: SODIUM CHLORIDE 0.9% 500 ML 500 ML IV STA (16:29)
[2023-03-11] MEDS ORDERED: ACETAMINOPHEN TAB 500 MG TAB PO STA (16:29)
[2023-03-11] MEDS ORDERED: IBUPROFEN 600 MG TAB PO STA (16:29)
[2023-03-11 16:46] LABS: Basophils % (A) 0 %; Eosinophils # (A) 0.2 k/uL (0-0.7); Eosinophils % (A) 2 %; HCT 49.6 % (39.0-53.0); Lymphocytes # (A) 1.1 k/uL (1.0-4.8); Lymphocytes % (A) 7 %; MCH 32.4 pg (25.0-35.0); MCHC 34.4 g/dL (31.0-37.0); MCV 94.1 fL (80.0-100.0); Mean Platelet Volume 8.2; Monocytes # (A) 0.8 k/uL (0-1.0); Monocytes % (A) 5 %; Neutrophils # (A) 12.2 k/uL (1.3-7.7); Neutrophils % (A) 85 %; Platelet Count 220 k/uL (150-450); RBC 5.27 m/uL (4.30-5.90); RDW 12.4 % (11.5-15.5); WBC 14.4 k/uL (3.8-10.6)
[2023-03-11] MEDS: SODIUM CHLORIDE 0.9% 1,000 ML IV SCH (16:52)
[2023-03-11 16:55] LABS: Magnesium 2.1 mg/dL (1.6-2.3); Phosphorus 3.5 mg/dL (2.5-4.5)
[2023-03-11 20:08] LABS: Appearance,Urine Clear (Clear); Bilirubin,Urine Negative (Negative); Blood,Urine Small (Negative); Color,Urine Yellow; Glucose,Urine (UA) Negative (Negative); Ketones,Urine Negative (Negative); Leukocyte Esterase,Urine Negative (Negative); Mucus,Urine Occasional /hpf; Nitrite,Urine Negative (Negative); Protein,Urine Negative (Negative); RBC,Urine 16 /hpf (0-5); Urobilinogen,Urine <2.0 mg/dL (<2.0)
[2023-03-11] MEDS ORDERED: NALOXONE 0.4 MG/ML 1 ML VIAL IV PRN (22:14)
[2023-03-11] MEDS ORDERED: AZITHROMYCIN 500 MG in SODIUM CHLORIDE 0.9% 250 ML IVPB STA (22:14)
[2023-03-11] MEDS ORDERED: ONDANSETRON 4 MG/2 ML VIAL IVP PRN (22:14)
[2023-03-11] MEDS ORDERED: ACETAMINOPHEN TAB 325 MG TAB PO PRN (22:14)
[2023-03-11] MEDS ORDERED: MORPHINE SULFATE 4 MG/ML SYRINGE IV PRN (22:14)
[2023-03-12] MEDS: SODIUM CHLORIDE 0.9% 1,000 ML IV SCH ×3 (05:04→16:39)
[2023-03-12 08:14] LABS: Basophils % (A) 0 %; Eosinophils # (A) 0.6 k/uL (0-0.7); Eosinophils % (A) 5 %; HCT 44.9 % (39.0-53.0); HGB 14.8 gm/dL (13.0-17.5); Lymphocytes # (A) 1.1 k/uL (1.0-4.8); Lymphocytes % (A) 10 %; MCH 31.9 pg (25.0-35.0); MCV 96.5 fL (80.0-100.0); Mean Platelet Volume 7.8; Monocytes # (A) 0.7 k/uL (0-1.0); Monocytes % (A) 6 %; Neutrophils % (A) 76 %; Platelet Count 186 k/uL (150-450); RBC 4.65 m/uL (4.30-5.90); RDW 12.4 % (11.5-15.5); WBC 10.6 k/uL (3.8-10.6)
[2023-03-12 08:30] LABS: ALT 32 U/L (4-49); AST 30 U/L (17-59); African American GFR (CKD) >90 (>60 ml/min/1.73 sqM); Albumin 3.5 g/dL (3.5-5.0); Alkaline Phosphatase 50 U/L (38-126); Anion Gap 6 mmol/L; Blood Urea Nitrogen 18 mg/dL (9-20); Calcium 7.9 mg/dL (8.4-10.2); Carbon Dioxide 26 mmol/L (22-30); Chloride 109 mmol/L (98-107); Glucose 96 mg/dL (74-99); Magnesium 1.8 mg/dL (1.6-2.3); Non-African American GFR(CKD) 88 (>60 ml/min/1.73 sqM); Potassium 4.2 mmol/L (3.5-5.1); Sodium 141 mmol/L (137-145); Total Bilirubin 2.4 mg/dL (0.2-1.3); Total Protein 5.8 g/dL (6.3-8.2)
--- NOTE | 2023-03-12 17:11 | P.HPIM ---
History of Present Illness H&P Date: 03/12/23 Chief Complaint: Weakness/loss of appetite 82-year-old male presents to the emergency department the chief complaint of generalized weakness and fatigue worsening over the last week. Denies chest pain shortness breath, palpitations. (Anna Farley) This is a 2-year-old male DF for evaluation patient presents today for evaluation of weakness patient has had some inability and difficulty in breathing especially yesterday. No recent travel history no sick contacts presents with significant cough and congestion coughing up mucus, not feeling well weakness no nausea vomiting or diarrhea. Blood work completed in ED reveals a daily basis of 14.4, hemoglobin of 17 and platelet count of 220, sodium 136, potassium 4.0, BUN/creatinine of 27/0.83 and blood glucose of 116 -- Chest x-ray reveals chronic changes Review of Systems REVIEW OF SYSTEMS: CONSTITUTIONAL: No fever, no malaise, no fatigue. HEENT: No recent visual problems or hearing problems. Denied any sore throat. CARDIOVASCULAR: No chest pain, orthopnea, PND, no palpitations, no syncope. PULMONARY: No shortness of breath, no cough, no hemoptysis. GASTROINTESTINAL: No diarrhea, no nausea, no vomiting, no abdominal pain. NEUROLOGICAL: No headaches, no weakness, no numbness. HEMATOLOGICAL: Denies any bleeding or petechiae. GENITOURINARY: Denies any burning micturition, frequency, or urgency. MUSCULOSKELETAL/RHEUMATOLOGICAL: Denies any joint pain, swelling, or any muscle pain. ENDOCRINE: Denies any polyuria or polydipsia. The rest of the 14-point review of systems is negative. 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, CVA/TIA, Dementia History of Any Multi-Drug Resistant Organisms: None Reported Past Surgical History: Unable to Obtain Past Psychological History: No Psychological Hx Reported Smoking Status: Never smoker Past Alcohol Use History: None Reported Past Drug Use History: None Reported Medications and Allergies Home Medications Medication Instructions Recorded Confirmed Type Atorvastatin [Lipitor] 80 mg PO HS 30 Days tab 11/05/21 03/11/23 Rx Clopidogrel [Plavix] 75 mg PO DAILY 30 Days tab 11/05/21 03/11/23 Rx lisinopriL [Zestril] 2.5 mg PO DAILY 30 Days tab 11/05/21 03/11/23 Rx Sertraline [Zoloft] 75 mg PO HS 03/11/23 03/11/23 History Allergies Allergy/AdvReac Type Severity Reaction Status Date / Time No Known Allergies Allergy Verified 03/11/23 18:15 Physical Exam Vitals: Vital Signs Temp Pulse Pulse Resp BP BP Pulse Ox 03/12/23 09:49 97 03/12/23 07:12 97.8 F 70 18 125/71 99 03/12/23 02:00 97.6 F 57 L 91/54 99 03/12/23 00:00 68 18 03/11/23 23:48 97.4 F L 68 16 104/65 96 03/11/23 23:11 98.8 F 74 16 111/64 96 03/11/23 23:00 58 L 11 L 107/60 97 03/11/23 22:50 70 17 107/60 90 L 03/11/23 22:40 54 L 11 L 107/60 96 03/11/23 22:30 53 L 16 106/64 96 03/11/23 22:20 65 16 106/64 98 03/11/23 22:10 106/64 03/11/23 22:00 59 L 14 100/64 95 03/11/23 21:50 57 L 16 100/64 96 03/11/23 21:40 65 14 100/64 94 L 03/11/23 21:30 61 11 L 98/60 95 03/11/23 21:20 63 14 98/60 96 03/11/23 21:10 80 16 98/60 90 L 03/11/23 21:00 98.9 F 54 L 7 L 102/63 98 03/11/23 20:50 53 L 21 102/63 96 03/11/23 20:40 62 11 L 102/63 97 03/11/23 20:30 66 16 101/58 98 03/11/23 20:20 58 L 10 L 101/58 98 03/11/23 20:10 59 L 12 101/58 98 03/11/23 20:00 58 L 13 98/60 98 03/11/23 19:50 60 13 98/60 97 03/11/23 19:40 60 13 98/60 96 03/11/23 19:30 64 12 91/58 96 03/11/23 19:20 63 8 L 91/58 98 03/11/23 19:10 12 91/58 97 03/11/23 19:00 62 13 90/57 97 03/11/23 18:50 64 14 90/57 97 03/11/23 18:40 65 14 90/57 98 03/11/23 18:30 64 14 97/57 97 03/11/23 18:20 71 12 97/57 03/11/23 18:10 70 15 97/57 03/11/23 18:00 74 17 96/63 03/11/23 17:50 76 7 L 96/63 96 03/11/23 17:40 73 16 96/63 03/11/23 17:30 73 13 137/81 03/11/23 17:20 76 11 L 137/81 03/11/23 17:10 16 137/81 03/11/23 17:00 74 11 L 121/74 03/11/23 16:50 72 16 121/74 03/11/23 16:40 78 20 121/74 96 03/11/23 16:30 77 22 110/69 97 03/11/23 16:20 79 18 110/69 96 03/11/23 16:10 77 19 110/69 97 03/11/23 16:00 98.9 F 71 16 131/78 97 03/11/23 15:50 72 15 131/78 98 03/11/23 15:44 98.4 F 73 16 131/78 97 03/11/23 15:40 76 12 131/78 95 03/11/23 15:37 73 21 03/11/23 14:06 100.3 F H 96 18 112/59 93 L Intake and Output 03/11/23 03/12/23 03/12/23 22:59 06:59 14:59 Intake Total 180 Balance 180 Intake: Oral 180 Other: Voiding Method Toilet Toilet Urinal Urinal Diaper Incontinent # Voids 1 1 Weight 60.781 kg General appearance: alert, in no apparent distress Head exam: Present: atraumatic, normocephalic, normal inspection Eye exam: Present: normal appearance, PERRL, EOMI. Absent: scleral icterus, conjunctival injection, periorbital swelling ENT exam: Present: normal exam, mucous membranes dry Neck exam: Present: normal inspection. Absent: tenderness, meningismus, lymph adenopathy Respiratory exam: Present: normal lung sounds bilaterally. Absent: respiratory distress, wheezes, rales, rhonchi, stridor Cardiovascular Exam: Present: regular rate, normal rhythm, normal heart sounds. Absent: systolic murmur, diastolic murmur, rubs, gallop, clicks GI/Abdominal exam: Present: soft, normal bowel sounds. Absent: distended, tenderness, guarding, rebound, rigid Extremities exam: Present: normal inspection, full ROM, normal capillary refill. Absent: tenderness, pedal edema, joint swelling, calf tenderness Back exam: Present: normal inspection Neurological exam: Present: alert, oriented X3, CN II-XII intact Psychiatric exam: Present: normal affect, normal mood Skin exam: Present: warm, dry, intact, normal color. Absent: rash Results CBC & Chem 7: 03/12/23 08:00 03/12/23 08:00 Labs: Abnormal Lab Results - Last 24 Hours (Table) 03/11/23 03/11/23 03/11/23 Range/Units 15:25 15:25 15:54 WBC 15.6 H 14.4 H (3.8-10.6) k/uL Neutrophils # 13.3 H 12.2 H (1.3-7.7) k/uL Sodium 136 L (137-145) mmol/L Chloride (98-107) mmol/L BUN 27 H (9-20) mg/dL Glucose 116 H (74-99) mg/dL Calcium (8.4-10.2) mg/dL Total Bilirubin 3.0 H (0.2-1.3) mg/dL Total Protein (6.3-8.2) g/dL Urine Blood (Negative) Urine RBC (0-5) /hpf Urine Mucus (None) /hpf 03/11/23 03/12/23 03/12/23 Range/Units 19:21 08:00 08:00 WBC (3.8-10.6) k/uL Neutrophils # 8.0 H (1.3-7.7) k/uL Sodium (137-145) mmol/L Chloride 109 H (98-107) mmol/L BUN (9-20) mg/dL Glucose (74-99) mg/dL Calcium 7.9 L (8.4-10.2) mg/dL Total Bilirubin 2.4 H (0.2-1.3) mg/dL Total Protein 5.8 L (6.3-8.2) g/dL Urine Blood Small H (Negative) Urine RBC 16 H (0-5) /hpf Urine Mucus Occasional H (None) /hpf Thrombosis Risk Factor Assmnt - Choose All That Apply Any of the Below Risk Factors Present?: Yes Each Factor Represents 1 point: Medical pt on bed rest Other Risk Factors: Yes Each Risk Factor Represents 3 Points: Age 75 years or older Thrombosis Risk Factor Assessment Total Risk Factor Score: 4 Thrombosis Risk Factor Assessment Level: Moderate Risk Assessment and Plan Assessment: 1. Severe acute bronchitis/possible pneumonia - Patient isn't placed on IV antibiotics in form of azithromycin and Rocephin 1 g IV daily - We will add bronchodilators nebulizer treatments - Monitor CBC, CRP and pro-calcitonin 2. Acute renal injury/dehydration; slow IV fluid hydration in form of normal saline at a rate of 75 mL an hour; we'll monitor strict MARLA's, daily weights, renal function and electrolytes; avoid nephrotoxins and hypotension 3. Altered mental status; metabolic encephalopathy likely related to a TIA and pneumonia 4. Weakness/generalized debility 5. Hypertension; continue with home dose of lisinopril 2.5 mg daily; we will plan to discontinue lisinopril if renal function worsens 6. Hyperlipidemia; Lipitor 80 mg by mouth daily at bedtime 7. History of CVA/TIA; continue with Plavix and statin therapy 8. Depression; Zoloft 75 mg daily at bedtime DVT prophylaxis; SCDs CODE STATUS; full code
[2023-03-12] MEDS: ATORVASTATIN 80 MG TAB PO SCH (20:38)
[2023-03-12] MEDS: SERTRALINE 50 MG TAB PO SCH (20:38)
[2023-03-12] MEDS: AZITHROMYCIN 500 MG in SODIUM CHLORIDE 0.9% 250 ML IVPB SCH (22:20)
[2023-03-13] MEDS: SODIUM CHLORIDE 0.9% 1,000 ML IV SCH ×2 (04:20→12:54)
[2023-03-13] MEDS: CLOPIDOGREL 75 MG TAB PO SCH (08:20)
[2023-03-13 09:34] LABS: African American GFR (CKD) 101.9 (60.0-200.0); Anion Gap 10.1 mmol/L (10.00-18.00); Blood Urea Nitrogen 13.3 mg/dL (9.0-27.0); Calcium 8.4 mg/dL (8.7-10.3); Carbon Dioxide 23.9 mmol/L (20.0-27.5); Non-African American GFR(CKD) 87.9 (60.0-200.0); Potassium 3.8 mmol/L (3.5-5.5)
[2023-03-13 10:19] LABS: Basophils # (A) 0.03 X 10*3/uL (0.00-0.10); Basophils % (A) 0.4 %; Eosinophils # (A) 0.34 X 10*3/uL (0.04-0.35); Eosinophils % (A) 4.1 %; HCT 40.1 % (39.6-50.0); HGB 13.5 g/dL (13.0-17.0); Immature Grans, Automated 0.4 %; Lymphocytes # (A) 1.48 X 10*3/uL (0.90-5.00); Lymphocytes % (A) 17.8 %; MCH 32.1 pg (27.0-32.0); MCHC 33.7 g/dL (32.0-37.0); MCV 95.2 fL (80.0-97.0); Mean Platelet Volume 10.6 fL (9.5-12.2); Monocytes # (A) 1.11 X 10*3/uL (0.20-1.00); Monocytes % (A) 13.3 %; NRBC Per 100 WBC 0 /100 WBCS (0.0-0.0); Neutrophils # (A) 5.34 X 10*3/uL (1.80-7.70); Platelet Count 182 X 10*3/uL (140-440); RBC 4.21 X 10*6/uL (4.40-5.60); RDW 12.3 % (11.5-14.5); WBC 8.33 X 10*3/uL (4.50-10.00)
--- NOTE | 2023-03-13 16:45 | P.PN ---
Subjective Progress Note Date: 03/13/23 82-year-old male presents to the emergency department the chief complaint of generalized weakness and fatigue worsening over the last week. Denies chest pain shortness breath, palpitations. (Anna Farley) This is a 2-year-old male DF for evaluation patient presents today for evaluation of weakness patient has had some inability and difficulty in breathing especially yesterday. No recent travel history no sick contacts presents with significant cough and congestion coughing up mucus, not feeling well weakness no nausea vomiting or diarrhea. Blood work completed in ED reveals a daily basis of 14.4, hemoglobin of 17 and platelet count of 220, sodium 136, potassium 4.0, BUN/creatinine of 27/0.83 and blood glucose of 116 -- Chest x-ray reveals chronic changes Objective - Vital Signs Vital signs: Vital Signs Temp 98.4 F 03/13/23 07:05 Pulse 61 03/13/23 07:05 Resp 17 03/13/23 07:05 BP 163/81 03/13/23 07:05 Pulse Ox 96 03/13/23 07:05 FiO2 Intake & Output 03/12/23 03/13/23 03/13/23 18:59 06:59 18:59 Intake Total 540 1560 Balance 540 1560 Intake: Intake, IV Titration 1560 Amount Sodium Chloride 0.9% 1, 1560 000 ml @ 130 mls/hr IV . [id number] [facility] Rx#:[id number] Oral 540 Other: Voiding Method Toilet Toilet Toilet Urinal Urinal Urinal Diaper Diaper Diaper Incontinent Incontinent Incontinent # Voids 1 2 # Bowel Movements 1 - Exam Head exam: Present: atraumatic, normocephalic, normal inspection Eye exam: Present: normal appearance, PERRL, EOMI. Absent: scleral icterus, conjunctival injection, periorbital swelling ENT exam: Present: normal exam, mucous membranes dry Neck exam: Present: normal inspection. Absent: tenderness, meningismus, lymphadenopathy Respiratory exam: Present: normal lung sounds bilaterally. Absent: respiratory distress, wheezes, rales, rhonchi, stridor Cardiovascular Exam: Present: regular rate, normal rhythm, normal heart sounds. Absent: systolic murmur, diastolic murmur, rubs, gallop, clicks GI/Abdominal exam: Present: soft, normal bowel sounds. Absent: distended, tenderness, guarding, rebound, rigid Extremities exam: Present: normal inspection, full ROM, normal capillary refill. Absent: tenderness, pedal edema, joint swelling, calf tenderness Back exam: Present: normal inspection Neurological exam: Present: alert, oriented X3, CN II-XII intact Psychiatric exam: Present: normal affect, normal mood Skin exam: Present: warm, dry, intact, normal color. Absent: rash - Labs CBC & Chem 7: 03/13/23 06:29 03/13/23 06:29 Labs: Abnormal Lab Results - Last 24 Hours (Table) 03/13/23 03/13/23 Range/Units 06:29 06:29 RBC 4.21 L (4.40-5.60) X 10*6/uL MCH 32.1 H (27.0-32.0) pg Monocytes # 1.11 H (0.20-1.00) X 10*3/uL Calcium 8.4 L (8.7-10.3) mg/dL Assessment and Plan Assessment: 1. Severe acute bronchitis/possible pneumonia - Patient isn't placed on IV antibiotics in form of azithromycin and Rocephin 1 g IV daily - We will add bronchodilators nebulizer treatments - Monitor CBC, CRP and pro-calcitonin 2. Acute renal injury/dehydration; slow IV fluid hydration in form of normal saline at a rate of 75 mL an hour; we'll monitor strict MARLA's, daily weights, renal function and electrolytes; avoid nephrotoxins and hypotension 3. Altered mental status; metabolic encephalopathy likely related to a TIA and pneumonia 4. Weakness/generalized debility 5. Hypertension; continue with home dose of lisinopril 2.5 mg daily; we will plan to discontinue lisinopril if renal function worsens 6. Hyperlipidemia; Lipitor 80 mg by mouth daily at bedtime 7. History of CVA/TIA; continue with Plavix and statin therapy 8. Depression; Zoloft 75 mg daily at bedtime DVT prophylaxis; SCDs CODE STATUS; full code
[2023-03-13] MEDS: ATORVASTATIN 80 MG TAB PO SCH (20:21)
[2023-03-13] MEDS: SERTRALINE 50 MG TAB PO SCH (20:21)
[2023-03-13] MEDS: AZITHROMYCIN 500 MG in SODIUM CHLORIDE 0.9% 250 ML IVPB SCH (20:22)
[2023-03-14] MEDS: CLOPIDOGREL 75 MG TAB PO SCH (08:00)
[2023-03-14 08:37] LABS: African American GFR (CKD) >90 (>60 ml/min/1.73 sqM); Anion Gap 7 mmol/L; Blood Urea Nitrogen 16 mg/dL (9-20); Calcium 8.4 mg/dL (8.4-10.2); Carbon Dioxide 25 mmol/L (22-30); Chloride 106 mmol/L (98-107); Glucose 87 mg/dL (74-99); Non-African American GFR(CKD) >90 (>60 ml/min/1.73 sqM); Sodium 138 mmol/L (137-145)
[2023-03-14 08:51] LABS: Basophils % (A) 0 %; Eosinophils # (A) 0.3 k/uL (0-0.7); Eosinophils % (A) 5 %; HCT 43.5 % (39.0-53.0); HGB 14.8 gm/dL (13.0-17.5); Lymphocytes # (A) 1.6 k/uL (1.0-4.8); Lymphocytes % (A) 25 %; MCH 31.6 pg (25.0-35.0); MCV 93.2 fL (80.0-100.0); Mean Platelet Volume 8.2; Monocytes # (A) 0.4 k/uL (0-1.0); Monocytes % (A) 7 %; Neutrophils # (A) 3.8 k/uL (1.3-7.7); Neutrophils % (A) 61 %; Platelet Count 201 k/uL (150-450); RBC 4.66 m/uL (4.30-5.90); RDW 12.3 % (11.5-15.5); WBC 6.3 k/uL (3.8-10.6)
--- NOTE | 2023-03-14 17:41 | P.PN ---
Subjective Progress Note Date: 03/14/23 82-year-old male presents to the emergency department the chief complaint of generalized weakness and fatigue worsening over the last week. Denies chest pain shortness breath, palpitations. (Anna Farley) This is a 2-year-old male DF for evaluation patient presents today for evaluation of weakness patient has had some inability and difficulty in breathing especially yesterday. No recent travel history no sick contacts presents with significant cough and congestion coughing up mucus, not feeling well weakness no nausea vomiting or diarrhea. Blood work completed in ED reveals a daily basis of 14.4, hemoglobin of 17 and platelet count of 220, sodium 136, potassium 4.0, BUN/creatinine of 27/0.83 and blood glucose of 116 -- Chest x-ray reveals chronic changes 03/14/2023 - Patient is seen and evaluated for follow-up; sitting in bedside chair; patient is more awake and responsive -- Vital signs are reviewed and remained stable -- Blood work reveals WBC of 6.3, hemoglobin 14.8 and platelet count of 201, sodium 138, potassium 4.2, BUN/creatinine 16/0.6 - Patient has been evaluated by PT/OT and is recommended skilled rehab - Case management consulted for patient's transfer to [facility] once clinically stable Objective - Vital Signs Vital signs: Vital Signs Temp 98.1 F 03/14/23 07:44 Pulse 63 03/14/23 08:00 Resp 16 03/14/23 08:00 BP 159/84 03/14/23 07:44 Pulse Ox 95 03/14/23 07:44 FiO2 Intake & Output 03/13/23 03/14/23 03/14/23 18:59 06:59 18:59 Intake Total 1080 Balance 1080 Intake: Oral 1080 Other: Voiding Method Toilet Toilet Urinal Urinal Diaper Diaper Incontinent Incontinent # Voids 3 3 # Bowel Movements 1 1 - Exam Head exam: Present: atraumatic, normocephalic, normal inspection Eye exam: Present: normal appearance, PERRL, EOMI. Absent: scleral icterus, conjunctival injection, periorbital swelling ENT exam: Present: normal exam, mucous membranes dry Neck exam: Present: normal inspection. Absent: tenderness, meningismus, lym phadenopathy Respiratory exam: Present: normal lung sounds bilaterally. Absent: respiratory distress, wheezes, rales, rhonchi, stridor Cardiovascular Exam: Present: regular rate, normal rhythm, normal heart sounds. Absent: systolic murmur, diastolic murmur, rubs, gallop, clicks GI/Abdominal exam: Present: soft, normal bowel sounds. Absent: distended, tenderness, guarding, rebound, rigid Extremities exam: Present: normal inspection, full ROM, normal capillary refill. Absent: tenderness, pedal edema, joint swelling, calf tenderness Back exam: Present: normal inspection Neurological exam: Present: alert, oriented X3, CN II-XII intact Psychiatric exam: Present: normal affect, normal mood Skin exam: Present: warm, dry, intact, normal color. Absent: rash - Labs CBC & Chem 7: 03/14/23 07:52 03/14/23 07:52 Labs: Abnormal Lab Results - Last 24 Hours (Table) 03/14/23 Range/Units 07:52 Creatinine 0.61 L (0.66-1.25) mg/dL Microbiology - Last 24 Hours (Table) 03/11/23 15:00 Blood Culture - Preliminary Blood 03/11/23 15:15 Blood Culture - Preliminary Blood Assessment and Plan Assessment: 1. Severe acute bronchitis/possible pneumonia - Patient isn't placed on IV antibiotics in form of azithromycin and Rocephin 1 g IV daily - We will add bronchodilators nebulizer treatments - Monitor CBC, CRP and pro-calcitonin 2. Acute renal injury/dehydration; slow IV fluid hydration in form of normal saline at a rate of 75 mL an hour; we'll monitor strict MARLA's, daily weights, renal function and electrolytes; avoid nephrotoxins and hypotension 3. Altered mental status; metabolic encephalopathy likely related to a TIA and pneumonia 4. Weakness/generalized debility 5. Hypertension; continue with home dose of lisinopril 2.5 mg daily; we will plan to discontinue lisinopril if renal function worsens 6. Hyperlipidemia; Lipitor 80 mg by mouth daily at bedtime 7. History of CVA/TIA; continue with Plavix and statin therapy 8. Depression; Zoloft 75 mg daily at bedtime DVT prophylaxis; SCDs CODE STATUS; full code
[2023-03-14] MEDS: AZITHROMYCIN 500 MG in SODIUM CHLORIDE 0.9% 250 ML IVPB SCH (20:41)
[2023-03-14] MEDS: SERTRALINE 50 MG TAB PO SCH (20:42)
[2023-03-14] MEDS: ATORVASTATIN 80 MG TAB PO SCH (20:42)
[2023-03-15] MEDS: CLOPIDOGREL 75 MG TAB PO SCH (08:14)
[2023-03-15 09:47] LABS: African American GFR (CKD) 91.9 (60.0-200.0); Anion Gap 10.9 mmol/L (10.00-18.00); BUN/Creat Ratio 26.33 Ratio (12.00-20.00); Blood Urea Nitrogen 23.7 mg/dL (9.0-27.0); Calcium 8.8 mg/dL (8.7-10.3); Carbon Dioxide 23.1 mmol/L (20.0-27.5); Non-African American GFR(CKD) 79.3 (60.0-200.0); Potassium 4.3 mmol/L (3.5-5.5)
[2023-03-15 10:41] LABS: Basophils # (A) 0.05 X 10*3/uL (0.00-0.10); Basophils % (A) 0.6 %; Eosinophils # (A) 0.42 X 10*3/uL (0.04-0.35); Eosinophils % (A) 4.8 %; HCT 41.5 % (39.6-50.0); HGB 13.8 g/dL (13.0-17.0); Immature Grans, Automated 0.6 %; Lymphocytes # (A) 1.75 X 10*3/uL (0.90-5.00); Lymphocytes % (A) 20.1 %; MCH 31.5 pg (27.0-32.0); MCHC 33.3 g/dL (32.0-37.0); MCV 94.7 fL (80.0-97.0); Mean Platelet Volume 10.3 fL (9.5-12.2); Monocytes # (A) 0.82 X 10*3/uL (0.20-1.00); Monocytes % (A) 9.4 %; NRBC Per 100 WBC 0 /100 WBCS (0.0-0.0); Neutrophils # (A) 5.62 X 10*3/uL (1.80-7.70); Neutrophils % (A) 64.5 %; Platelet Count 231 X 10*3/uL (140-440); RBC 4.38 X 10*6/uL (4.40-5.60); RDW 12.2 % (11.5-14.5); WBC 8.71 X 10*3/uL (4.50-10.00)
--- NOTE | 2023-03-15 13:38 | P.PN ---
Subjective 82-year-old male presents to the emergency department the chief complaint of generalized weakness and fatigue worsening over the last week. Denies chest pain shortness breath, palpitations. (Anna Farley) This is a 2-year-old male DF for evaluation patient presents today for evaluation of weakness patient has had some inability and difficulty in breathing especially yesterday. No recent travel history no sick contacts presents with significant cough and congestion coughing up mucus, not feeling well weakness no nausea vomiting or diarrhea. Blood work completed in ED reveals a daily basis of 14.4, hemoglobin of 17 and platelet count of 220, sodium 136, potassium 4.0, BUN/creatinine of 27/0.83 and blood glucose of 116 -- Chest x-ray reveals chronic changes 03/14/2023 - Patient is seen and evaluated for follow-up; sitting in bedside chair; patient is more awake and responsive -- Vital signs are reviewed and remained stable -- Blood work reveals WBC of 6.3, hemoglobin 14.8 and platelet count of 201, sodium 138, potassium 4.2, BUN/creatinine 16/0.6 - Patient has been evaluated by PT/OT and is recommended skilled rehab - Case management consulted for patient's transfer to [facility] once clinically stable 03/15/2023 Patient today he is alert awake, is a bit confused to the surrounding, he knows he is in the hospital but his with his [place]. He is disoriented to time and person as well. 3 memory of checked test was positive for the patient and patient could not r emember the objects, most likely patient has elements of dementia she is to follow up as an outpatient. Patient states that he is improved since he came in to the hospital, he is a pleasant relaxed and denies any specific complaints. No chest pain or dyspnea. No change in urine or bowel habits today. No fever. Also I talked to the patient daughter over the phone while she was at bedside and she confirms to me that she is at his mental baseline, he is confused since August 2021 when she had a stroke, his neurologist Dr. Hussein thought he has A. fib but is a Holter monitor was negative over 30 today as per daughter and currently is not on a blood thinner. However the daughter thinks he is generally weak and they prefer him to go to rehab. We will order CT of the brain once that's been negative and patient is medically stable for transfer to rehab. TSH is within the reference range 1.8 as well as B12 885 and hemoglobin A1c at 5.7%, the stents were negative. Broadcalcitonin is negative at 0.05 Objective - Vital Signs Vital signs: Vital Signs Temp 97.7 F 03/15/23 07:39 Pulse 68 03/15/23 07:39 Resp 17 03/14/23 19:34 BP 126/82 03/15/23 07:39 Pulse Ox 99 03/15/23 08:03 FiO2 Intake & Output 03/14/23 03/15/23 03/15/23 18:59 06:59 18:59 Intake Total 720 240 Balance 720 240 Intake: Oral 720 240 Other: Voiding Method Toilet Urinal Diaper Incontinent # Voids 3 1 # Bowel Movements 2 1 - Exam -GENERAL: The patient is alert and oriented x1 partially, memory problems, could not remember 3 objects, not in any acute distress. Well developed, well nourished. HEENT: Pupils are round and equally reacting to light. EOMI. No scleral icterus. No conjunctival pallor. Normocephalic, atraumatic. No pharyngeal erythema. No thyromegaly. CARDIOVASCULAR: S1 and S2 present. No murmurs, rubs, or gallops. PULMONARY: Chest is clear to auscultation, no wheezing or crackles. ABDOMEN: Soft, nontender, nondistended, normoactive bowel sounds. No palpable organomegaly. MUSCULOSKELETAL: No joint swelling or deformity. EXTREMITIES: No cyanosis, clubbing, or pedal edema. NEUROLOGICAL: Gross neurological examination did not reveal any focal deficits. SKIN: No rashes. no petechiae. - Labs CBC & Chem 7: 03/15/23 04:09 03/15/23 04:09 Labs: Abnormal Lab Results - Last 24 Hours (Table) 03/15/23 03/15/23 Range/Units 04:09 04:09 RBC 4.38 L (4.40-5.60) X 10*6/uL Immature Gran # 0.05 H (0.00-0.04) X 10*3/uL Eosinophils # 0.42 H (0.04-0.35) X 10*3/uL BUN/Creatinine Ratio 26.33 H (12.00-20.00) Ratio Microbiology - Last 24 Hours (Table) 03/11/23 15:00 Blood Culture - Preliminary Blood 03/11/23 15:15 Blood Culture - Preliminary Blood Assessment and Plan Assessment: 1. Severe acute bronchitis/possible pneumonia - Patient is placed on IV antibiotics in form of azithromycin and Rocephin 1 g IV daily - We will add bronchodilators nebulizer treatments - Improving 2. 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 3. Depression; Zoloft 75 mg daily at bedtime 4. Weakness/generalized debility, secondary to above 5. Hypertension; continue with home dose of lisinopril 2.5 mg daily; we will plan to discontinue lisinopril if renal function worsens 6. Hyperlipidemia; Lipitor 80 mg by mouth daily at bedtime 7. History of CVA/TIA; continue with Plavix and statin therapy DVT prophylaxis; SCDs, subcutaneous heparin GI prophylaxis: Pepcid CODE STATUS; full code Follow-up CT of the brain office negative then patient may be consistent to be discharged to rehab, Discuss plan with the daughter at bedside and she verbalized understanding and acceptance
--- NOTE | 2023-03-15 14:44 | CT ---
EXAMINATION TYPE: CT brain wo con DATE OF EXAM: 03/15/2023 COMPARISON: 08/26/2021 HISTORY: Confusion CT DLP: 1191.4 mGycm Automated exposure control for dose reduction was used. FINDINGS: Moderate generalized degenerative change. Low attenuation in the white matter is nonspecific. No evid ence of acute hemorrhage or mass effect. No midline shifts. There is intracranial atherosclerotic dewey nges. The changes of chronic sinusitis are noted. Orbits are symmetric. Calvarium is intact. Craniocervical junction maintained. Sella turcica has a normal appearance. Pineal gland calcifications are incident ally noted. IMPRESSION: DEGENERATIVE AND NONSPECIFIC WHITE MATTER CHANGES MOST OVERLYING ISCHEMIA. NO ACUTE HEMORRHAGE OR MAS S EFFECT.
[2023-03-15] MEDS: SERTRALINE 50 MG TAB PO SCH (20:03)
[2023-03-15] MEDS: ATORVASTATIN 80 MG TAB PO SCH (20:03)
[2023-03-15] MEDS: HEPARIN SODIUM,PORCINE/PF 5,000 UNIT/0.5 ML SYRINGE SQ SCH (20:03)
[2023-03-15] MEDS: FAMOTIDINE 20 MG/2 ML VIAL IV SCH (21:19)
[2023-03-16 02:18] VITALS: TEMP 98.2
[2023-03-16 07:37] VITALS: BP 126/71; PULSE 62; RESP 16
[2023-03-16] MEDS: FAMOTIDINE 20 MG/2 ML VIAL IV SCH (09:00)
[2023-03-16] MEDS: CLOPIDOGREL 75 MG TAB PO SCH (09:00)
[2023-03-16] MEDS: HEPARIN SODIUM,PORCINE/PF 5,000 UNIT/0.5 ML SYRINGE SQ SCH (09:01)
--- NOTE | 2023-03-16 11:13 | P.DS ---
Providers Date of admission: 03/15/23 07:27 Attending physician: Jarod Richter [facility] Course: Diagnoses: 1. Severe acute bronchitis/possible pneumonia - Responded to antibiotic and improved 2. 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 Depression; 4. Weakness/generalized debility, secondary to above 5. Hypertension; 6. Hyperlipidemia; 7. History of CVA/TIA; Hospital course: 82-year-old male presents to the emergency department the chief complaint of generalized weakness and fatigue worsening over the last week. Denies chest pain shortness breath, palpitations. Patient had low-grade fever of 100.3 on admission also mild leukocytosis indicative of sepsis. Patient was started on antibiotic ceftriaxone for bronchitis patient showed interval improvement On the day of discharge patient is back to baseline, his breathing quietly, denies dyspnea, denies chest pain, denies coughing. No change in urine or bowel habits. No fever. Priorcalcitonin is -0.05. He tolerates diet well and he ate about 75% of his breakfast this morning Patient has memory problems, for example he has difficulty remembering 3 objects memory test. Patient might benefit from Mini-Mental exam for possible dementia as an outpatient. Patient can be discharged on short course of Ceftin 3 days Discussed with family and they requested this and goes to rehab, patient agrees Problems and management plan were discussed with the patient and he verbalized understanding and acceptance Patient was found stable and can be discharged home in guarded prognosis however he needs follow-up as an outpatient. Patient was instructed to follow up with PCP within one week and patient agrees Patient was referred to his neurologist Dr. Hussein for his dementia and other mental problems. Physical exam -Gen: patient is a AAOx3, no distress. Patient has Memory problem. Generally weak CVS: S1-S2, RRR, no murmur Lungs: B/L CTA, no wheezing Abdomen: soft, no distention, no tenderness, positive bowel sounds Extremity: no leg edema or induration get up and go test: Normal -Neurological: Alert awake and oriented, confused at baseline. Motor 5/5 and sensation intact in all extremities. Gait is normal. Generally weak. Meningeal signs are absent Time spent more than 35 minutes Patient Condition at Discharge: Fair Plan - Discharge Summary Discharge Rx Participant: Yes New Discharge Prescriptions: New cefUROXime axetiL [Ceftin] 500 mg PO BID 3 Days #6 tab Acetaminophen Tab [Tylenol] 325 mg PO Q6HR PRN tab PRN Reason: Mild Pain Or Fever > 100.5 Continue Clopidogrel [Plavix] 75 mg PO DAILY 30 Days tab Atorvastatin [Lipitor] 80 mg PO HS 30 Days tab lisinopriL [Zestril] 2.5 mg PO DAILY 30 Days tab Sertraline [Zoloft] 75 mg PO HS Discharge Medication List Atorvastatin [Lipitor] 80 mg PO HS 30 Days tab 11/05/21 [Rx] Clopidogrel [Plavix] 75 mg PO DAILY 30 Days tab 11/05/21 [Rx] lisinopriL [Zestril] 2.5 mg PO DAILY 30 Days tab 11/05/21 [Rx] Sertraline [Zoloft] 75 mg PO HS 03/11/23 [History] Acetaminophen Tab [Tylenol] 325 mg PO Q6HR PRN tab 03/16/23 [Rx] cefUROXime axetiL [Ceftin] 500 mg PO BID 3 Days #6 tab 03/16/23 [Rx] Follow up Appointment(s)/Referral(s): Cortes Hussein DO [STAFF PHYSICIAN] - 1 Week Souleymaen Persaud MD [Primary Care Provider] - 1-2 days Activity/Diet/Wound Care/Special Instructions: Heart healthy diet Activity is restricted till you see your doctor Discharge Disposition: TRANSFER TO SNF/ECF
--- NOTE | 2023-03-18 10:59 | CDI ---
Documentation Clarification Form Date: 03/18/2023 10:53:06 AM From: Yadira Cha Admit Date: 03/15/2023 7:27:00 AM Patient Name: Pantera Antunez Visit Number: [id number] Discharge Date: 03/16/2023 1:12:00 PM ATTENTION: The Clinical Documentation Specialists (CDI) and [facility] Coding Staff appreciate your assistance in clarifying documentation. Please respond to the clarification below the line at the bottom and electronically sign. The CDI & [facility] Coding staff will review the response and follow-up if needed. Please note: Queries are made part of the Legal Health Record. If you have any questions, please contact the author of this message via ITS. Dr. Sauceda E Sheet Per DCS "Patient had low grade fever of 100.3 on admission also mild leukocytosis indicative of sepsis. Sepsis is not documented anywhere else in chart. Please clarify if patient had sepsis and if it was POA. Clinical Indicators: WBC 14.4 Lactic acid: 1.2 Blood cultures: No growth Vitals signs: 100.3 F, 96 bpm, 18, 112/59, 93% RA Treatment: IV antibiotics Antibiotics: Azithromycin and Rocephin Is there an additional diagnosis that is clinically appropriate for this patient? [ ] Sepsis, present on admission [ ] Sepsis, developed during stay, not present on admission [ ] Sepsis ruled out [ ] Severe Sepsis with organ failure [ ] Septic Shock [ ] SIRS, without underlying infectious process [ ] Other, please specify [ ] Unable to determine SIRS Criteria: 2 or more of the following may indicate SIRS Temperature < 96.8F (36C) or > 101.0F (38.3C) Heart Rate > 90 bpm Respiratory Rate > 20 breaths/min or PaCO2 < 32 mmHg White Blood Cell Count > 12,000 or < 4,000 cells/mm3 or > 10% bands mild sepsis present on admission , resolved prior to discharge MTDD
== END 2023-03-16 13:12 | DRG 871 ==
LOC: EC 13:50 → 4SSUR 22:16 → OBSVTOIN 03-15 07:27
PROVIDERS: ADMIT Hospitalist; ATTEND Hospitalist
DX: A41.9 Sepsis, unspecified organism (principal); G93.41 Metabolic encephalopathy; J18.9 Pneumonia, unspecified organism; G45.9 Transient cerebral ischemic attack, unspecified; N17.9 Acute kidney failure, unspecified; J20.9 Acute bronchitis, unspecified; E78.5 Hyperlipidemia, unspecified; E86.0 Dehydration; F32.A Depression, unspecified; G30.9 Alzheimer's disease, unspecified; F02.80 Dementia in other diseases classified elsewhere, unspecified severity, without behavioral disturbance, psychotic disturbance, mood disturbance, and anxiety; I10 Essential (primary) hypertension; Z79.02 Long term (current) use of antithrombotics/antiplatelets; Z79.899 Other long term (current) drug therapy; Z86.73 Personal history of transient ischemic attack (TIA), and cerebral infarction without residual deficits; Z20.822 Contact with and (suspected) exposure to COVID-19; Z28.21 Immunization not carried out because of patient refusal; R53.81 Other malaise
CPT/HCPCS: 36415; 70450; 71046; 80048; 80053; 81001; 82306; 82607; 83036; 83605; 83735; 83880; 84100; 84145; 84443; 84484; 85025; 85610; 85730; 87040; 87636; 93005; 94760; 96361; 96365; 96375; 96376; 99285

== ENCOUNTER 2023-05-18 22:40 | Emergency (ER) | payer MEDICARE ==
[2023-05-18 22:47] VITALS: TEMP 98.6
--- NOTE | 2023-05-18 23:11 | ED ---
General Adult HPI - General Chief complaint: Back Pain/Injury Stated complaint: Back pain Time Seen by Provider: 05/18/23 22:49 Source: patient Mode of arrival: ambulatory Limitations: no limitations - History of Present Illness Initial comments: Dictation was produced using [employer] dictation software. please excuse any grammatical, word or spelling errors. Chief Complaint: 82-year-old male presents emergency department for back pain History of Present Illness: 82-year-old male who presents with family. Patient allegedly fell from a standing position 3 hours prior to arrival. Complaining of back pain. Patient's history of unsteady gait. Denies LOC. States that his back hurts when he tries to stand. States the pain is in his lower back. Denies any numbness tingling paresthesias to lower extremities. No saddle anesthesia. Denies any head injury. The ROS documented in this emergency department record has been reviewed and confirmed by me. Those systems with pertinent positive or negative responses have been documented in the HPI. All other systems are other negative and/or noncontributory. - Related Data Home Medications Medication Instructions Recorded Confirmed Sertraline [Zoloft] 75 mg PO HS 03/11/23 03/11/23 Previous Rx's Medication Instructions Recorded Atorvastatin [Lipitor] 80 mg PO HS 30 Days tab 11/05/21 Clopidogrel [Plavix] 75 mg PO DAILY 30 Days tab 11/05/21 lisinopriL [Zestril] 2.5 mg PO DAILY 30 Days tab 11/05/21 Acetaminophen Tab [Tylenol] 325 mg PO Q6HR PRN tab 03/16/23 cefUROXime axetiL [Ceftin] 500 mg PO BID 3 Days #6 tab 03/16/23 HYDROcodone/APAP 5-325MG [Success 1 tab PO Q6HR PRN 3 Days #12 tab 05/19/23 5-325] Allergies Allergy/AdvReac Type Severity Reaction Status Date / Time No Known Allergies Allergy Verified 03/11/23 18:15 Review of Systems ROS Statement: Those systems with pertinent positive or pertinent negative responses have been documented in the HPI. ROS Other: All systems not noted in ROS Statement are negative. 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, CVA/TIA, Dementia History of Any Multi-Drug Resistant Organisms: None Reported Past Surgical History: Unable to Obtain Past Psychological History: No Psychological Hx Reported Smoking Status: Never smoker Past Alcohol Use History: None Reported Past Drug Use History: None Reported General Exam - General Exam Comments Initial Comments: PHYSICAL EXAM: General Impression: Alert and oriented x3, not in acute distress HEENT: Normocephalic atraumatic, extra-ocular movements intact, pupils equal and reactive to light bilaterally, mucous membranes moist. Cardiovascular: Heart regular rate and rhythm Chest: Able to complete full sentences, no retractions, no tachypnea Abdomen: abdomen soft, non-tender, non-distended, no organomegaly Musculoskeletal: Pulses present and equal in all extremities, no peripheral edema Motor: no focal deficits noted Neurological: CN II-XII grossly intact, no focal motor or sensory deficits noted Skin: Intact with no visualized rashes Psych: Normal affect and mood Limitations: no limitations Course Vital Signs 05/18/23 22:42 Temperature 98.6 F Pulse Rate 96 Respiratory 20 Rate Blood Pressure 130/83 O2 Sat by Pulse 94 L Oximetry Medical Decision Making - Medical Decision Making Was pt. sent in by a medical professional or institution (, PA, [employer], urgent care, hospital, or half-way...) When possible be specific @ -No Did you speak to anyone other than the patient for history (EMS, parent, family, police, friend...)? What history was obtained from this source @ -No Did you review nursing and triage notes (agree or disagree)? Why? @ -I reviewed and agree with nursing and triage notes Were old charts reviewed (outside hosp., previous admission, EMS record, old EKG, old radiological studies, urgent care reports/EKG's, half-way records)? Report findings @ -No old charts were reviewed Differential Diagnosis (chest pain, altered mental status, abdominal pain women, abdominal pain men, vaginal bleeding, musculoskeletal, weakness, fever, dyspnea, syncope, headache, dizziness, GI bleed, back pain, seizure, CVA, palpatations, mental health)? @ -not applicable EKG interpreted by me (3pts min.). @ -None done X-rays interpreted by me (1pt min.). @ -None done CT interpreted by me (1pt min.). @ -CT brain is unremarkable, CT lumbar spine is unremarkable. He does appear to be some fecal impaction. U/S interpreted by me (1pt. min.). @ -None done What testing was considered but not performed or refused? (CT, X-rays, U/S, labs)? Why? @ -None What meds were considered but not given or refused? Why? @ -None Did you discuss the management of the patient with other professionals (professionals i.e. , PA, [employer], lab, RT, psych nurse, social work specialist, utility porter, teacher, corporate banking officer, case briefer)? Give summary @ -No Was smoking cessation discussed for >3mins.? @ -No Was critical care preformed (if so, how long)? @ -No Were there social determinants of health that impacted care today? How? (Homelessness, low income, unemployed, alcoholism, drug addiction, transportation, low edu. Level, literacy, decrease access to med. care, senior care, rehab)? @ -No Was there de-escalation of care discussed even if they declined (Discuss DNR or withdrawal of care, Hospice)? DNR status @ -No What co-morbidities impacted this encounter? (DM, HTN, Smoking, COPD, CAD, Cancer, CVA, ARF, Chemo, Hep., AIDS, mental health diagnosis, sleep apnea, morbid obesity)? @ -None Was patient admitted / discharged? Hospital course, mention meds given and route, prescriptions, significant lab abnormalities, going to OR and other pertinent info. @ -82-year-old male presents emergency Department after mechanical fall. He has history of unsteady gait. Vital signs stable. Patient will. The bedside. CT imaging of the head and lumbar spine shows no acute processes. Undiagnosed new problem with uncertain prognosis? @ -No Drug Therapy requiring intensive monitoring for toxicity (Heparin, Nitro, Insulin, Cardizem)? @ -No Were any procedures done? @ -No Diagnosis/symptom? Acute, or Chronic, or Acute on Chronic? Uncomplicated (without systemic symptoms) or Complicated (systemic symptoms)? @ -1. Back strain Side effects of treatment? @ -No Exacerbation, Progression, or Severe Exacerbation? @ -No Poses a threat to life or bodily function? How? (Chest pain, [place], [place], pneumonia, PE, COPD, DKA, ARF, appy, cholecystitis, CVA, Diverticulitis, Homicidal, Suicidal, threat to staff... and all critical care pts) @ -No Disposition Clinical Impression: Back strain Disposition: HOME SELF-CARE Instructions (If sedation given, give patient instructions): Acute Low Back Pain (ED) Prescriptions: HYDROcodone/APAP 5-325MG [Success 5-325] 1 tab PO Q6HR PRN 3 Days #12 tab PRN Reason: Severe Pain Is patient prescribed a controlled substance at d/c from ED?: Yes If prescribed controlled substance>3 days was MAPS reviewed?: Prescribed <3 Days Referrals: Souleymane Persaud MD [Primary Care Provider] - 1-2 days Time of Disposition: 00:32
--- NOTE | 2023-05-18 23:36 | CT ---
EXAM: CT Head Without Intravenous Contrast CLINICAL HISTORY: Fall TECHNIQUE: Axial computed tomography images of the head/brain without intravenous contrast. CTDI is 49.2 mGy and DLP is 1070.4 mGy-cm. This CT exam was performed using one or more of the following dose reduction techniques: automated exposure control, adjustment of the mA and/or kV according to patient size, and/or use of iterative reconstruction technique. COMPARISON: CT head without contrast dated 03/15/2023 FINDINGS: Brain: No intracranial hemorrhage. Similar subtle areas of subcortical encephalomalacia involving the right frontal and parietal regions, stable in appearance. Stable appearance of the cerebellar hemispheres with questionable focal areas of subtle encephalomalacia. Diffuse prominence of the cerebral sulci and sylvian fissures. Similar mild periventricular deep white matter hypodense changes. Ventricles: No midline shift or developing ventriculomegaly. Bones/joints: Unremarkable. No acute fracture. Soft tissues: No significant overlying acute traumatic soft tissue abnormality identified. No radiopaque foreign body. Sinuses: Unremarkable as visualized. No acute sinusitis. Mastoid air cells: Unremarkable as visualized. No mastoid effusion. IMPRESSION: No acute intracranial process or significant alteration from the previous examination with chronic underlying findings, as noted above.
--- NOTE | 2023-05-18 23:58 | CT ---
EXAM: CT Lumbar Spine Without Intravenous Contrast CLINICAL HISTORY: Fall TECHNIQUE: Axial computed tomography images of the lumbar spine without intravenous contrast. CTDI is 25.5 mGy and DLP is 921.4 mGy-cm. This CT exam was performed using one or more of the following dose reduction techniques: automated exposure control, adjustment of the mA and/or kV according to patient size, and/or use of iterative reconstruction technique. COMPARISON: No relevant prior studies available. FINDINGS: Vertebrae: Loss of height involving the superior endplate at T11 and T12 level with anterior wedging is chronic in appearance. The lumbar vertebral body heights are maintained. There is 6 mm anterolisthesis of L5 on S1 with unroofing of the disc posteriorly, secondary to bilateral L5 spondylolysis. No other anterolisthesis or retrolisthesis noted throughout the lumbar spine. The remaining pedicles, facet joints, spinous processes and transverse processes are intact. The space narrowing with marginal hypertrophic changes and minimal vacuum phenomenon noted at L3-4, L4-5 and L5-S1. Minimal vacuum phenomenon and anterior hypertrophic changes noted at T10-11 and T11-12. Discs/spinal canal/neural foramina: No acute findings. No spinal canal stenosis. Soft tissues: No significant paraspinal soft tissue abnormality identified. Stomach and bowel: Incidental prominent fecal impaction in the rectal vault. IMPRESSION: 1. No acute osseous traumatic injury involving the lumbar spine. Incidental chronic findings, as noted above. 2. Incidental prominent fecal impaction in the rectal vault. Detailed evaluation limited.
[2023-05-19] MEDS ORDERED: HYDROcodone/APAP 5-325MG 1 EACH TAB PO STA (00:33)
[2023-05-19 00:56] VITALS: BP 142/86; PULSE 77; RESP 16
== END 2023-05-19 00:56 | disposition home or self-care (01) ==
LOC: EC 22:40
DX: S39.012A Strain of muscle, fascia and tendon of lower back, initial encounter (principal); Z86.73 Personal history of transient ischemic attack (TIA), and cerebral infarction without residual deficits; X58.XXXA Exposure to other specified factors, initial encounter
CPT/HCPCS: 70450; 72131; 99284

== ENCOUNTER 2023-08-20 18:42 | Emergency (ER) | payer MEDICARE ==
[2023-08-20 19:00] VITALS: TEMP 98.4
--- NOTE | 2023-08-20 19:40 | XR ---
EXAMINATION TYPE: XR ankle complete RT DATE OF EXAM: 08/20/2023 7:14 PM CLINICAL INDICATION:Male, 82 years old with history of fall swelling; [facility] COMPARISON: None TECHNIQUE: XR ankle complete RT; ankle is imaged in frontal, lateral and oblique projections. FINDINGS: Oblique distal right fibular fracture with associated soft tissue edema. No additional fractures visu alized. Somewhat mottled appearance of the tibial mid metadiaphysis region. IMPRESSION: Distal right fibular fracture with associated soft tissue edema.
--- NOTE | 2023-08-20 20:58 | CT ---
EXAMINATION TYPE: CT brain cspine wo con CT DLP: 1346.1 mGycm, Automated exposure control for dose reduction was used. DATE OF EXAM: 08/20/2023 8:48 PM COMPARISON: 05/18/2023 CLINICAL INDICATION:Male, 82 years old with history of unwitnessed fall; Unwitnessed fall. TECHNIQUE: Brain: Multiple axial CT images of the brain were obtained without IV contrast. Cspine: Axial CT images from the skull base to the inferior aspect of T2 we obtained without intraven ous contrast. Coronal and sagittal reformatted images were also reviewed. FINDINGS: Brain: Extra-axial spaces: No abnormal extra-axial fluid collections. Ventricular system: Dilatation in proportion to cerebral atrophy. Cerebral parenchyma: Cerebral atrophy. Remote appearing right frontal lobe injuries. No acute intrapa renchymal hemorrhage or mass effect. The shields-white junction is well differentiated. Scattered hypoa ttenuating areas are seen within the white matter. Cerebellum: Hypodense areas in the bilateral cerebellar hemispheres similar to prior. Mass effect: No evidence of midline shift. Intracranial vasculature: Atherosclerotic calcifications of the intracranial vessels. Soft tissues: Normal. Calvarium/osseous structures: No depressed skull fracture. Paranasal sinuses and mastoid air cells: Clear. Visualized orbits: Orbital contents are intact. Cervical spine: Fracture: None. Osseous structures: Unremarkable Vertebral alignment: Within normal limits. Spinal canal/Neural Foramina: No evidence of significant spinal canal narrowing. No evidence for sign ificant neural foraminal stenosis. Neck soft tissues: Prevertebral soft tissues are within normal limits. Other: The airway is patent. The lung apices are clear.Atherosclerosis of the carotid bifurcations. IMPRESSION: 1. No acute intracranial process. 2. Remote injuries to the right frontal lobe and bilateral cerebellar hemispheres.. 3. Nonspecific white matter changes, likely secondary to chronic small vessel ischemic disease. 4. No evidence of cervical spine fracture. 5. Moderate multilevel degenerative disc disease.
--- NOTE | 2023-08-20 21:11 | ED ---
General Adult HPI - General Chief complaint: Extremity Injury, Lower Stated complaint: fall Time Seen by Provider: 08/20/23 19:41 Source: patient, family Mode of arrival: wheelchair Limitations: no limitations - History of Present Illness Initial comments: 82-year-old male presenting with chief complaint of right ankle pain. Patient states he was trying to get up out of his bed at his assisted living when he fell, fall was unwitnessed.. Patient was found by staff on the floor. He denies head injury or loss of consciousness. Patient is on Plavix. He is complaining of right ankle pain with weightbearing. No numbness or tingling. No nausea, vomiting, dizziness. No visual or hearing changes. - Related Data Home Medications Medication Instructions Recorded Confirmed Sertraline [Zoloft] 75 mg PO HS 03/11/23 03/11/23 Previous Rx's Medication Instructions Recorded Atorvastatin [Lipitor] 80 mg PO HS 30 Days tab 11/05/21 Clopidogrel [Plavix] 75 mg PO DAILY 30 Days tab 11/05/21 lisinopriL [Zestril] 2.5 mg PO DAILY 30 Days tab 11/05/21 Acetaminophen Tab [Tylenol] 325 mg PO Q6HR PRN tab 03/16/23 cefUROXime axetiL [Ceftin] 500 mg PO BID 3 Days #6 tab 03/16/23 HYDROcodone/APAP 5-325MG [[place] 1 tab PO Q6HR PRN 3 Days #12 tab 05/19/23 5-325] Allergies Allergy/AdvReac Type Severity Reaction Status Date / Time No Known Allergies Allergy Verified 03/11/23 18:15 Review of Systems ROS Statement: Those systems with pertinent positive or pertinent negative responses have been documented in the HPI. ROS Other: All systems not noted in ROS Statement are negative. 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, CVA/TIA, Dementia History of Any Multi-Drug Resistant Organisms: None Reported Past Surgical History: Unable to Obtain Past Psychological History: No Psychological Hx Reported Smoking Status: Never smoker Past Alcohol Use History: None Reported Past Drug Use History: None Reported General Exam Limitations: no limitations General appearance: alert, in no apparent distress Head exam: Present: atraumatic, normocephalic, normal inspection Eye exam: Present: normal appearance, EOMI Neck exam: Present: normal inspection, full ROM Respiratory exam: Present: normal lung sounds bilaterally. Absent: respiratory distress, wheezes, rales, rhonchi, stridor Cardiovascular Exam: Present: regular rate, normal rhythm, normal heart sounds. Absent: systolic murmur, diastolic murmur, rubs, gallop, clicks Right Ankle exam: Present: tenderness, swelling. Absent: full ROM Neurovascular tendon exam: Present: no vascular compromise Neurological exam: Present: alert, oriented X3 Psychiatric exam: Present: normal affect, normal mood Skin exam: Present: warm, dry, intact, normal color. Absent: rash Course Vital Signs 08/20/23 08/20/23 18:47 21:45 Temperature 98.4 F Pulse Rate 94 74 Respiratory 20 18 Rate Blood Pressure 140/83 128/72 O2 Sat by Pulse 97 93 L Oximetry Procedures - Orthopedic Splinting/Casting Injury #1 Side: right Lower Extremity Injury Location: ankle Lower Extremity Immobilizer: stirrup splint Medical Decision Making - Medical Decision Making Was pt. sent in by a medical professional or institution (, PA, CLOD PULLER, urgent c are, hospital, or half-way...) When possible be specific @ -No Did you speak to anyone other than the patient for history (EMS, parent, family, police, friend...)? What history was obtained from this source @ -History supplemented by daughter at bedside Did you review nursing and triage notes (agree or disagree)? Why? @ -I reviewed and agree with nursing and triage notes Were old charts reviewed (outside hosp., previous admission, EMS record, old EKG, old radiological studies, urgent care reports/EKG's, half-way records)? Report findings @ -No old charts were reviewed Differential Diagnosis (chest pain, altered mental status, abdominal pain women, abdominal pain men, vaginal bleeding, weakness, fever, dyspnea, syncope, headache, dizziness, GI bleed, back pain, seizure, CVA, palpatations, mental health, musculoskeletal)? @ -Differential Musculoskeletal Muscular strain, contusion, ligament sprain, fracture, arthritis, septic arthritis, bursitis, cellulitis, muscle spasm, nerve compression, DVT, arterial occlusion, herpes zoster, electrolyte abnormality, tumor.... This is not meant to be in all inclusive list EKG interpreted by me (3pts min.). @ -As above X-rays interpreted by me (1pt min.). @ -Distal right fibular fracture with associated soft tissue edema CT interpreted by me (1pt min.). @ -No acute intracranial process or evidence of cervical spine fracture. Remote injuries to the right frontal lobe and bilateral cerebellar hemispheres. Nonspecific white matter changes likely secondary to chronic small vessel ischemic disease. Moderate multilevel degenerative disc disease. U/S interpreted by me (1pt. min.). @ -None done What testing was considered but not performed or refused? (CT, X-rays, U/S, labs)? Why? @ -None What meds were considered but not given or refused? Why? @ -None Did you discuss the management of the patient with other professionals (professionals i.e. , PA, CLOD PULLER, lab, RT, psych nurse, social work therapist, change agent, teacher, college service officer, manager rn case)? Give summary @ -No Was smoking cessation discussed for >3mins.? @ -No Was critical care preformed (if so, how long)? @ -No Were there social determinants of health that impacted care today? How? (Homelessness, low income, unemployed, alcoholism, drug addiction, transportation, low edu. Level, literacy, decrease access to med. care, retirement, rehab)? @ -No Was there de-escalation of care discussed even if they declined (Discuss DNR or withdrawal of care, Hospice)? DNR status @ -No What co-morbidities impacted this encounter? (DM, HTN, Smoking, COPD, CAD, Cancer, CVA, ARF, Chemo, Hep., AIDS, mental health diagnosis, sleep apnea, morbid obesity)? @ -None Was patient admitted / discharged? Hospital course, mention meds given and route, prescriptions, significant lab abnormalities, going to OR and other pertinent info. @ -82-year-old male presenting for evaluation after an unwitnessed fall. He is complaining of right ankle pain. He is on Plavix, he denies loss of consciousness. Physical exam is conducted. X-rays positive for distal fibular fracture. Negative CT of the brain and cervical spine. Patient is placed in a stirrup splint. Instructed to follow-up with orthopedics. Follow-up with PCP. Report back to ER with any new or worsening symptoms. Discussed return parameters and answered all questions. Patient conveyed verbal understanding and agreed to the plan. I discussed this case in detail with my attending Dr. You Undiagnosed new problem with uncertain prognosis? @ -No Drug Therapy requiring intensive monitoring for toxicity (Heparin, Nitro, Insulin, Cardizem)? @ -No Were any procedures done? @ -Splint applied Diagnosis/symptom? @ -Fibula fracture Acute, or Chronic, or Acute on Chronic? @ -Acute Uncomplicated (without systemic symptoms) or Complicated (systemic symptoms)? @ -Uncomplicated Side effects of treatment? @ -No Exacerbation, Progression, or Severe Exacerbation? @ -No Poses a threat to life or bodily function? How? (Chest pain, [place], [place], pneumonia, PE, COPD, DKA, ARF, appy, cholecystitis, CVA, Diverticulitis, Homicidal, Suicidal, threat to staff... and all critical care pts) @ -No Disposition Clinical Impression: Fracture of distal end of fibula Disposition: HOME SELF-CARE Condition: Good Instructions (If sedation given, give patient instructions): Ankle Fracture (ED), Head Injury (ED) Additional Instructions: Follow up with orthopedics. Report back to ER with any new or worsening symptoms. Rest ice and elevate the ankle. Take Motrin and Tylenol as needed for pain control. Is patient prescribed a controlled substance at d/c from ED?: No Referrals: Jimmy Persaud MD [Primary Care Provider] - 1-2 days Soniya Adair DO [Doctor of Osteopathic Medicine] - 1-2 days Time of Disposition: 21:11
[2023-08-20 22:01] VITALS: BP 128/72; PULSE 74; RESP 18
== END 2023-08-20 21:48 | disposition home or self-care (01) ==
LOC: EC 18:42
DX: S82.831A Other fracture of upper and lower end of right fibula, initial encounter for closed fracture (principal); M50.30 Other cervical disc degeneration, unspecified cervical region; Z86.73 Personal history of transient ischemic attack (TIA), and cerebral infarction without residual deficits; W01.0XXA Fall on same level from slipping, tripping and stumbling without subsequent striking against object, initial encounter; Y92.009 Unspecified place in unspecified non-institutional (private) residence as the place of occurrence of the external cause
CPT/HCPCS: 29515; 70450; 72125; 99283

== ENCOUNTER 2023-10-26 09:56 | Emergency (ER) | payer MEDICARE ==
[2023-10-26] MEDS ORDERED: SODIUM CHLORIDE 0.9% 1,000 ML IV STA (10:20)
--- NOTE | 2023-10-26 10:42 | ED ---
General Adult HPI - General Chief complaint: Neuro Symptoms/Deficit Stated complaint: Weakness Time Seen by Provider: 10/26/23 10:00 Source: EMS Mode of arrival: EMS - History of Present Illness Initial comments: 83-year-old male presents to the emergency department for weakness. EMS states that the patient was having right-sided weakness with facial droop. He does come from [facility]. He does have previous history of stroke. Patient does have significant dementia and cannot provide any history. He believes that he lives at home and it is June. Daughter does present to bedside and helps provide more history. She states that the patient has had this waxing and waning weakness for the past several months. He has been evaluated previously for these symptoms. She states that he has had several strokes with no residual weakness. No falls. Denies fevers. The patient has not reported any chest pain or shortness of breath. No changes in his bowel or bladder habits. No urinary complaints. No other alleviating, precipitating factors - Related Data Home Medications Medication Instructions Recorded Confirmed Sertraline [Zoloft] 75 mg PO DAILY 10/26/23 10/26/23 lisinopriL [Zestril] 2.5 mg PO DAILY 10/26/23 10/26/23 Previous Rx's Medication Instructions Recorded Atorvastatin [Lipitor] 80 mg PO HS 30 Days tab 11/05/21 Clopidogrel [Plavix] 75 mg PO DAILY 30 Days tab 11/05/21 Allergies Allergy/AdvReac Type Severity Reaction Status Date / Time No Known Allergies Allergy Verified 10/26/23 12:30 Review of Systems ROS Statement: Those systems with pertinent positive or pertinent negative responses have been documented in the HPI. ROS Other: All systems not noted in ROS Statement are negative. 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, CVA/TIA, Dementia History of Any Multi-Drug Resistant Organisms: None Reported Past Surgical History: Unable to Obtain Past Psychological History: No Psychological Hx Reported Smoking Status: Never smoker Past Alcohol Use History: None Reported Past Drug Use History: None Reported General Exam Limitations: altered mental status General appearance: alert, in no apparent distress Head exam: Present: atraumatic, normocephalic, normal inspection Eye exam: Present: normal appearance, PERRL, EOMI. Absent: scleral icterus, conjunctival injection, periorbital swelling ENT exam: Present: normal exam, mucous membranes moist Respiratory exam: Present: normal lung sounds bilaterally. Absent: respiratory distress, wheezes, rales, rhonchi, stridor Cardiovascular Exam: Present: regular rate, normal rhythm, normal heart sounds. Absent: systolic murmur, diastolic murmur, rubs, gallop, clicks GI/Abdominal exam: Present: soft, normal bowel sounds. Absent: distended, tenderness, guarding, rebound, rigid Extremities exam: Present: normal inspection, full ROM, normal capillary refill. Absent: tenderness, pedal edema, joint swelling, calf tenderness Neurological exam: Present: altered Psychiatric exam: Present: normal affect, normal mood Skin exam: Present: warm, dry, intact, normal color. Absent: rash Course Vital Signs 10/26/23 10/26/23 10/26/23 09:58 10:48 11:41 Temperature 98.2 F 98.8 F Pulse Rate 102 H 76 Respiratory 20 20 Rate Blood Pressure 134/81 111/71 O2 Sat by Pulse 94 L 95 Oximetry Fraction of 100 Inspired Oxygen (FIO2) 10/26/23 10/26/23 10/26/23 13:00 14:14 14:53 Temperature 98.5 F Pulse Rate 67 80 Respiratory 18 18 Rate Blood Pressure 107/67 119/76 110/76 O2 Sat by Pulse 95 94 L Oximetry Fraction of Inspired Oxygen (FIO2) Medical Decision Making - Medical Decision Making Was pt. sent in by a medical professional or institution (JONATHON Dasilva, CONTACT CENTER CONSULTANT, urgent care, hospital, or longterm...) When possible be specific @ -Nursing facility Did you speak to anyone other than the patient for history (EMS, parent, family, police, friend...)? What history was obtained from this source @ -Spoke with the patient's daughter and EMS Did you review nursing and triage notes (agree or disagree)? Why? @ -I reviewed and agree with nursing and triage notes Were old charts reviewed (outside hosp., previous admission, EMS record, old EKG, old radiological studies, urgent care reports/EKG's, longterm records)? Report findings @ -No old charts were reviewed Differential Diagnosis (chest pain, altered mental status, abdominal pain women, abdominal pain men, vaginal bleeding, weakness, fever, dyspnea, syncope, headache, dizziness, GI bleed, back pain, seizure, CVA, palpatations, mental health, musculoskeletal)? @ -Differential Weakness: Hypoglycemia, shock, sepsis, hyponatremia, anemia, infection, MO, ETOH, adverse medicine reaction, overdose, stroke, this is not meant to be an all-inclusive list. EKG interpreted by me (3pts min.). @ -Yes and demonstrates sinus rhythm with a rate of 83. UT interval 179. QRS 81. QTC of 414. No acute ST segment elevations or depressions X-rays interpreted by me (1pt min.). @ -Yes and demonstrates no acute process CT interpreted by me (1pt min.). @ -yes an demonstrates no acute process U/S interpreted by me (1pt. min.). @ -None done What testing was considered but not performed or refused? (CT, X-rays, U/S, labs)? Why? @ -Urinalysis however the daughter does not want the patient's straight cathed for the specimen What meds were considered but not given or refused? Why? @ -None Did you discuss the management of the patient with other professionals (professionals i.e. , PA, CONTACT CENTER CONSULTANT, lab, RT, psych nurse, pediatric social worker, drug enforcement administration agent, teacher, submarine advisory team watch officer, case hardener)? Give summary @ -No Was smoking cessation discussed for >3mins.? @ -No Was critical care preformed (if so, how long)? @ -No Were there social determinants of health that impacted care today? How? (Homelessness, low income, unemployed, alcoholism, drug addiction, transportation, low edu. Level, literacy, decrease access to med. care, correction, rehab)? @ -No Was there de-escalation of care discussed even if they declined (Discuss DNR or withdrawal of care, Hospice)? DNR status @ -No What co-morbidities impacted this encounter? (DM, HTN, Smoking, COPD, CAD, Cancer, CVA, ARF, Chemo, Hep., AIDS, mental health diagnosis, sleep apnea, morbid obesity)? @ -dementia Was patient admitted / discharged? Hospital course, mention meds given and route, prescriptions, significant lab abnormalities, going to OR and other perti nent info. @ -Discharge. Upon arrival patient was placed into trauma 1. Thorough history and physical exam is performed. Daughter states that the patient does have chronic intermittent weakness. Laboratory studies were conducted. CT was performed. I do not appreciate any lateralizing weakness. I did request a urinalysis however the daughter does not with the patient's straight cath. I did discuss results. She feels as if the patient is stable for discharge home as he has had the symptoms for a significant period of time. She would like to follow up with primary care doctor in regards to his symptoms and return for any new or worsening symptoms. Undiagnosed new problem with uncertain prognosis? @ -No Drug Therapy requiring intensive monitoring for toxicity (Heparin, Nitro, Insulin, Cardizem)? @ -No Were any procedures done? @ -No Diagnosis/symptom? @ -Acute exacerbation of chronic weakness, hx previous cvas Acute, or Chronic, or Acute on Chronic? @ -Acute on chronic Uncomplicated (without systemic symptoms) or Complicated (systemic symptoms)? @ - complicated Side effects of treatment? @ -No Exacerbation, Progression, or Severe Exacerbation? @ -No Poses a threat to life or bodily function? How? (Chest pain, [place], [place], pneumonia, PE, COPD, DKA, ARF, appy, cholecystitis, CVA, Diverticulitis, Homicidal, Suicidal, threat to staff... and all critical care pts) @ -No - Lab Data Result diagrams: 10/26/23 11:37 10/26/23 11:37 Lab Results 10/26/23 10/26/23 10/26/23 Range/Units 11:37 11:37 11:37 WBC 11.6 H (3.8-10.6) k/uL RBC 5.01 (4.30-5.90) m/uL Hgb 15.9 (13.0-17.5) gm/dL Hct 45.9 (39.0-53.0) % MCV 91.7 (80.0-100.0) fL MCH 31.7 (25.0-35.0) pg MCHC 34.6 (31.0-37.0) g/dL RDW 12.7 (11.5-15.5) % Plt Count 237 (150-450) k/uL MPV 8.3 Neutrophils % 79 % Lymphocytes % 11 % Monocytes % 8 % Eosinophils % 1 % Basophils % 0 % Neutrophils # 9.1 H (1.3-7.7) k/uL Lymphocytes # 1.3 (1.0-4.8) k/uL Monocytes # 0.9 (0-1.0) k/uL Eosinophils # 0.1 (0-0.7) k/uL Basophils # 0.0 (0-0.2) k/uL PT 10.9 (10.0-12.5) sec INR 1.0 (<1.2) APTT 24.0 (22.0-30.0) sec Sodium 139 (137-145) mmol/L Potassium 4.1 (3.5-5.1) mmol/L Chloride 104 (98-107) mmol/L Carbon Dioxide 22 (22-30) mmol/L Anion Gap 13 mmol/L BUN 29 H (9-20) mg/dL Creatinine 0.70 (0.66-1.25) mg/dL Est GFR (CKD-EPI)AfAm >90 (>60 ml/min/1.73 sqM) Est GFR (CKD-EPI)NonAf 88 (>60 ml/min/1.73 sqM) Glucose 112 H (74-99) mg/dL Plasma Lactic Acid Srinivas (0.7-2.0) mmol/L Calcium 8.7 (8.4-10.2) mg/dL Magnesium 2.0 (1.6-2.3) mg/dL Total Bilirubin 1.9 H (0.2-1.3) mg/dL AST 27 (17-59) U/L ALT 24 (4-49) U/L Alkaline Phosphatase 90 (38-126) U/L Troponin I (0.000-0.034) ng/mL Total Protein 6.2 L (6.3-8.2) g/dL Albumin 3.8 (3.5-5.0) g/dL Influenza Type A (PCR) (Not Detectd) Influenza Type B (PCR) (Not Detectd) RSV (PCR) (Not Detectd) SARS-CoV-2 (PCR) (Not Detectd) 10/26/23 10/26/23 10/26/23 Range/Units 11:37 11:37 11:37 WBC (3.8-10.6) k/uL RBC (4.30-5.90) m/uL Hgb (13.0-17.5) gm/dL Hct (39.0-53.0) % MCV (80.0-100.0) fL MCH (25.0-35.0) pg MCHC (31.0-37.0) g/dL RDW (11.5-15.5) % Plt Count (150-450) k/uL MPV Neutrophils % % Lymphocytes % % Monocytes % % Eosinophils % % Basophils % % Neutrophils # (1.3-7.7) k/uL Lymphocytes # (1.0-4.8) k/uL Monocytes # (0-1.0) k/uL Eosinophils # (0-0.7) k/uL Basophils # (0-0.2) k/uL PT (10.0-12.5) sec INR (<1.2) APTT (22.0-30.0) sec Sodium (137-145) mmol/L Potassium (3.5-5.1) mmol/L Chloride (98-107) mmol/L Carbon Dioxide (22-30) mmol/L Anion Gap mmol/L BUN (9-20) mg/dL Creatinine (0.66-1.25) mg/dL Est GFR (CKD-EPI)AfAm (>60 ml/min/1.73 sqM) Est GFR (CKD-EPI)NonAf (>60 ml/min/1.73 sqM) Glucose (74-99) mg/dL Plasma Lactic Acid Srinivas 1.2 (0.7-2.0) mmol/L Calcium (8.4-10.2) mg/dL Magnesium (1.6-2.3) mg/dL Total Bilirubin (0.2-1.3) mg/dL AST (17-59) U/L ALT (4-49) U/L Alkaline Phosphatase (38-126) U/L Troponin I <0.012 (0.000-0.034) ng/mL Total Protein (6.3-8.2) g/dL Albumin (3.5-5.0) g/dL Influenza Type A (PCR) Not Detected (Not Detectd) Influenza Type B (PCR) Not Detected (Not Detectd) RSV (PCR) Not Detected (Not Detectd) SARS-CoV-2 (PCR) Not Detected (Not Detectd) Disposition Clinical Impression: Weakness Disposition: HOME SELF-CARE Condition: Stable Instructions (If sedation given, give patient instructions): Normal Exam (ED) Additional Instructions: Your labs and imaging is all normal Is patient prescribed a controlled substance at d/c from ED?: No Referrals: Souleymane Persaud MD [Primary Care Provider] - 1-2 days Time of Disposition: 14:03
--- NOTE | 2023-10-26 11:10 | XR ---
EXAMINATION TYPE: XR chest 2V DATE OF EXAM: 10/26/2023 11:02 AM CLINICAL INDICATION:Male, 83 years old with history of Weakness; [facility] COMPARISON: 03/11/2023 TECHNIQUE: XR chest 2V. Frontal PA and lateral views of the chest. FINDINGS: Lines/Tubes: EKG leads overlie the chest. No indwelling lines are seen. Heart/mediastinum: Cardiomediastinal silhouette is well defined. Heart appears mildly enlarged. Tor tuosity and partial calcification of the aorta. Pulmonary vascularity: Not increased, Lungs/Pleura: Suspect background COPD changes. Decreased lung volumes with crowding of bronchovascula r markings and mild bibasilar atelectasis. No confluent consolidation, pleural effusion, or pneumotho rax. Musculoskeletal: No acute osseous abnormality demonstrated in the limits of the exam. Moderate degen erative changes of the spine however not well seen. Moderate left and milder right glenohumeral joint arthropathy. Other findings: Loop recorder projects over the left upper quadrant anteriorly. No visualized subdiap hragmatic free air. IMPRESSION: Low lung volume exam with hypoventilatory changes. Otherwise no acute finding.
[2023-10-26 11:57] LABS: Basophils % (A) 0 %; Eosinophils # (A) 0.1 k/uL (0-0.7); Eosinophils % (A) 1 %; HCT 45.9 % (39.0-53.0); HGB 15.9 gm/dL (13.0-17.5); Lymphocytes # (A) 1.3 k/uL (1.0-4.8); Lymphocytes % (A) 11 %; MCH 31.7 pg (25.0-35.0); MCHC 34.6 g/dL (31.0-37.0); MCV 91.7 fL (80.0-100.0); Mean Platelet Volume 8.3; Monocytes # (A) 0.9 k/uL (0-1.0); Monocytes % (A) 8 %; Neutrophils # (A) 9.1 k/uL (1.3-7.7); Neutrophils % (A) 79 %; Platelet Count 237 k/uL (150-450); RBC 5.01 m/uL (4.30-5.90); RDW 12.7 % (11.5-15.5); WBC 11.6 k/uL (3.8-10.6)
[2023-10-26 12:10] LABS: Prothrombin Time 10.9 sec (10.0-12.5)
[2023-10-26 12:14] LABS: ALT 24 U/L (4-49); AST 27 U/L (17-59); African American GFR (CKD) >90 (>60 ml/min/1.73 sqM); Albumin 3.8 g/dL (3.5-5.0); Alkaline Phosphatase 90 U/L (38-126); Anion Gap 13 mmol/L; Blood Urea Nitrogen 29 mg/dL (9-20); Calcium 8.7 mg/dL (8.4-10.2); Carbon Dioxide 22 mmol/L (22-30); Chloride 104 mmol/L (98-107); Glucose 112 mg/dL (74-99); Non-African American GFR(CKD) 88 (>60 ml/min/1.73 sqM); Potassium 4.1 mmol/L (3.5-5.1); Sodium 139 mmol/L (137-145); Total Bilirubin 1.9 mg/dL (0.2-1.3); Total Protein 6.2 g/dL (6.3-8.2)
--- NOTE | 2023-10-26 13:52 | CT ---
EXAMINATION TYPE: CT brain june wo con DATE OF EXAM: 10/26/2023 COMPARISON: 08/20/2023 HISTORY: weakness CT DLP: 1258.5 mGycm Automated exposure control for dose reduction was used. TECHNIQUE: CT scan of the head and cervical spine are performed without contrast. FINDING: CTA head: The ventricles, basal cisterns and sulci over convexities are moderately to markedly enlarged consist ent with moderate to marked atrophy. There is mild to moderate diffuse decreased density in the deep periventricular white matter consiste nt with chronic ischemic white matter demyelination. There is no mass effect or shift of midline structures. There is no acute intra or extra-axial hemorrhage. The posterior fossa is grossly normal. The intraorbital contents appear normal and symmetric. Visualized paranasal sinuses and mastoid air cells are well aerated. The calvarium is intact. CT cervical spine: Cranial vertebral junction relationships and prevertebral soft tissues are normal. The cervical vertebral segments are normal in height and alignment and there is no fracture subluxati on. There is moderate degenerative disease from C3 through T2. There is mild facet joints are intact. The paraspinal soft tissues unremarkable. IMPRESSION: 1. Moderate to marked atrophy and ischemic white matter changes. 2. No acute bleed or mass effect. 3. Degenerative changes in the cervical spine without evidence of acute trauma. 4. No significant interval change.
[2023-10-26 14:37] VITALS: RESP 18
[2023-10-26 15:01] VITALS: BP 110/76; PULSE 80; TEMP 98.5
== END 2023-10-26 14:56 | disposition home or self-care (01) ==
LOC: EC 09:56
DX: M47.812 Spondylosis without myelopathy or radiculopathy, cervical region (principal); R53.1 Weakness; Z20.822 Contact with and (suspected) exposure to COVID-19
CPT/HCPCS: 36415; 70450; 71046; 72125; 80053; 83605; 83735; 84484; 85025; 85610; 85730; 87636; 93005; 96360; 96361; 99285

== ENCOUNTER 2023-11-15 07:13 | Emergency (ER) | payer MEDICARE ==
[2023-11-15] MEDS ORDERED: SODIUM CHLORIDE 0.9% 1,000 ML IV STA (07:30)
[2023-11-15 07:36] VITALS: RESP 18; TEMP 97.5
--- NOTE | 2023-11-15 07:40 | ED ---
Fall HPI - General Chief Complaint: Fall Stated Complaint: Fall Time Seen by Provider: 11/15/23 07:17 Source: patient, family, EMS, RN notes reviewed Mode of arrival: EMS Limitations: no limitations - History of Present Illness Initial Comments: This is an 83 year old male who presents to the emergency department for a fall. Patient was found on the ground by [facility] staff after patient had a fall around 1am. Patient states that he got his feet tangled and fell. However, per EMS and family, the patient has dementia and is not a reliable historian. He denies hitting his head, sustaining any injuries, or any loss of consciousness. However his daughter states that she was told that he did hit his head. He is on Plavix. He is supposed to wait for assistance before moving around, as he cannot get up on his own. He had forgotten this due to the dementia, and tried to get up on his own, causing the fall. They also said that he has dark urine with a strong odor and inquired about a possible UTI. Patient denies any complaints at this time. MD Complaint: fall - Related Data Home Medications Medication Instructions Recorded Confirmed Sertraline [Zoloft] 75 mg PO DAILY 10/26/23 10/26/23 lisinopriL [Zestril] 2.5 mg PO DAILY 10/26/23 10/26/23 Previous Rx's Medication Instructions Recorded Atorvastatin [Lipitor] 80 mg PO HS 30 Days tab 11/05/21 Clopidogrel [Plavix] 75 mg PO DAILY 30 Days tab 11/05/21 Allergies Allergy/AdvReac Type Severity Reaction Status Date / Time No Known Allergies Allergy Verified 11/15/23 07:20 Review of Systems ROS Statement: Those systems with pertinent positive or pertinent negative responses have been documented in the HPI. ROS Other: All systems not noted in ROS Statement are negative. 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 Absent: scleral icterus, conjunctival injection, periorbital swelling Respiratory exam: Present: normal lung sounds bilaterally. Absent: respiratory distress, wheezes, rales, rhonchi, stridor Cardiovascular Exam: Present: regular rate, normal rhythm, normal heart sounds. Absent: systolic murmur, diastolic murmur, rubs, gallop, clicks GI/Abdominal exam: Present: soft, normal bowel sounds. Absent: distended, tenderness, guarding, rebound, rigid Neurological exam: Present: alert, oriented X3, CN II-XII intact Psychiatric exam: Present: normal affect, normal mood Skin exam: Present: warm, dry, intact, normal color. Absent: rash Course Vital Signs 11/15/23 07:17 Temperature 97.5 F L Pulse Rate 90 Respiratory 18 Rate Blood Pressure 163/82 O2 Sat by Pulse 94 L Oximetry Medical Decision Making - Medical Decision Making This is an 83 year old male who presents to the emergency department for a fall. Was pt. sent in by a medical professional or institution? @ -No Did you speak to anyone other than the patient for history? @ -EMS and his daughter provided the majority of the information. Did you review nursing and triage notes? @ -Yes, and I agree, it is accurate with regards to the patient's symptoms. Were old charts reviewed? @ -No Differential Diagnosis? @ -Differential Fall: Trip and fall, syncope, CVA/TIA, arrhythmia, this is not meant to be an all- inclusive list. EKG interpreted by me (3pts min.)? @ -EKG interpreted by me demonstrating the following: Sinus rhythm. Ventricular rate 80 beats per minute, OK interval 144 ms, QRS duration 82 ms, QTC 426 ms. X-rays interpreted by me (1pt min.)? @ -Chest x-ray obtained, my interpretation identifies no localized consolidations or infiltrates. CT interpreted by me (1pt min.)? @ -Computed tomography scan of the brain and c-spine obtained. My interpretation identifies no evidence of an acute intracranial hemorrhage, skull fracture, or cervical spine fracture. U/S interpreted by me (1pt. min.)? @ -Not obtained What testing was considered but not performed? (CT, X-rays, U/S, labs)? Why? @ -None What meds were considered but not given? Why? @ -None Did you discuss the management of the patient with other professionals? @ -No Did you reconcile home meds? @ -No Was smoking cessation discussed for >3mins.? @ -No Was critical care preformed (if so, how long)? @ -No Were there social determinants of health that impacted care today? How? (Homelessness, low income, unemployed, alcoholism, drug addiction, transportation, low edu. Level, literacy, decrease access to med. care, [facility], rehab)? @ -No Was there de-escalation of care discussed even if they declined? (Discuss DNR or withdrawal of care, Hospice)? @ -No What co-morbidities impacted this encounter? (DM, HTN, Smoking, COPD, CAD, Cancer, CVA, Hep., AIDS, mental health diagnosis, sleep apnea, morbid obesity)? @ -Dementia, CVA Was patient admitted / discharged? @ -Discharged. Given that the circumstances surrounding the fall are unclear due to his hx of dementia and the patient being an unreliable historian, we proceeded with additional workup including lab work, urine, and imaging. Lab work demonstrates leukocytosis and was otherwise unremarkable. Mild elevation in bilirubin is stable when compared with prior values. Chest x-ray reveals no acute process. Multiple compression fractures are stable when compared with prior. CT scan of the brain/c-spine also reveals no acute process. Urinalysis negative for signs of infection. Fall likely occurred due to the patient trying to get up on his own without assistance per his daughter. She is comfortable with the patient being discharged back to [facility]. Undiagnosed new problem with uncertain prognosis? @ -None Drug Therapy requiring intensive monitoring for toxicity (Heparin, Nitro, Insulin, Cardizem)? @ -None Were any procedures done? @ -None Diagnosis/symptom? @ -Fall Acute, or Chronic, or Acute on Chronic? @ -Acute Uncomplicated (without systemic symptoms) or Complicated (systemic symptoms)? @ -Uncomplicated Side effects of treatment? @ -None Exacerbation, Progression, or Severe Exacerbation] @ -Not applicable Poses a threat to life or bodily function? @ -No Return precautions reviewed in depth, the patient is instructed to return to the emergency department with any new, worsening, or concerning symptoms. Patient verbalized understanding. This case was discussed in detail with the attending ED physician, Dr. Barnes. Presentation, findings, and treatment plan discussed in detail as well. - Lab Data Result diagrams: 11/15/23 07:39 11/15/23 07:39 Lab Results 11/15/23 11/15/23 11/15/23 Range/Units 07:39 07:39 07:39 WBC 15.6 H (3.8-10.6) k/uL RBC 5.13 (4.30-5.90) m/uL Hgb 16.1 (13.0-17.5) gm/dL Hct 47.1 (39.0-53.0) % MCV 91.9 (80.0-100.0) fL MCH 31.4 (25.0-35.0) pg MCHC 34.2 (31.0-37.0) g/dL RDW 13.0 (11.5-15.5) % Plt Count 212 (150-450) k/uL MPV 8.0 Neutrophils % 82 % Lymphocytes % 10 % Monocytes % 6 % Eosinophils % 1 % Basophils % 0 % Neutrophils # 12.7 H (1.3-7.7) k/uL Lymphocytes # 1.6 (1.0-4.8) k/uL Monocytes # 1.0 (0-1.0) k/uL Eosinophils # 0.2 (0-0.7) k/uL Basophils # 0.1 (0-0.2) k/uL Sodium 137 (137-145) mmol/L Potassium 4.3 (3.5-5.1) mmol/L Chloride 104 (98-107) mmol/L Carbon Dioxide 23 (22-30) mmol/L Anion Gap 10 mmol/L BUN 19 (9-20) mg/dL Creatinine 0.69 (0.66-1.25) mg/dL Est GFR (CKD-EPI)AfAm >90 (>60 ml/min/1.73 sqM) Est GFR (CKD-EPI)NonAf 88 (>60 ml/min/1.73 sqM) Glucose 112 H (74-99) mg/dL Plasma Lactic Acid Srinivas 1.9 (0.7-2.0) mmol/L Calcium 8.6 (8.4-10.2) mg/dL Magnesium 1.7 (1.6-2.3) mg/dL Total Bilirubin 2.4 H (0.2-1.3) mg/dL AST 38 (17-59) U/L ALT 35 (4-49) U/L Alkaline Phosphatase 94 (38-126) U/L Total Protein 6.4 (6.3-8.2) g/dL Albumin 3.9 (3.5-5.0) g/dL Urine Color Urine Appearance (Clear) Urine pH (5.0-8.0) Ur Specific [place] (1.001-1.035) Urine Protein (Negative) Urine Glucose (UA) (Negative) Urine Ketones (Negative) Urine Blood (Negative) Urine Nitrite (Negative) Urine Bilirubin (Negative) Urine Urobilinogen (<2.0) mg/dL Ur Leukocyte Esterase (Negative) 11/15/23 Range/Units 08:51 WBC (3.8-10.6) k/uL RBC (4.30-5.90) m/uL Hgb (13.0-17.5) gm/dL Hct (39.0-53.0) % MCV (80.0-100.0) fL MCH (25.0-35.0) pg MCHC (31.0-37.0) g/dL RDW (11.5-15.5) % Plt Count (150-450) k/uL MPV Neutrophils % % Lymphocytes % % Monocytes % % Eosinophils % % Basophils % % Neutrophils # (1.3-7.7) k/uL Lymphocytes # (1.0-4.8) k/uL Monocytes # (0-1.0) k/uL Eosinophils # (0-0.7) k/uL Basophils # (0-0.2) k/uL Sodium (137-145) mmol/L Potassium (3.5-5.1) mmol/L Chloride (98-107) mmol/L Carbon Dioxide (22-30) mmol/L Anion Gap mmol/L BUN (9-20) mg/dL Creatinine (0.66-1.25) mg/dL Est GFR (CKD-EPI)AfAm (>60 ml/min/1.73 sqM) Est GFR (CKD-EPI)NonAf (>60 ml/min/1.73 sqM) Glucose (74-99) mg/dL Plasma Lactic Acid Srinivas (0.7-2.0) mmol/L Calcium (8.4-10.2) mg/dL Magnesium (1.6-2.3) mg/dL Total Bilirubin (0.2-1.3) mg/dL AST (17-59) U/L ALT (4-49) U/L Alkaline Phosphatase (38-126) U/L Total Protein (6.3-8.2) g/dL Albumin (3.5-5.0) g/dL Urine Color Yellow Urine Appearance Clear (Clear) Urine pH 6.0 (5.0-8.0) Ur Specific [place] 1.019 (1.001-1.035) Urine Protein Negative (Negative) Urine Glucose (UA) Negative (Negative) Urine Ketones 1+ H (Negative) Urine Blood Negative (Negative) Urine Nitrite Negative (Negative) Urine Bilirubin Negative (Negative) Urine Urobilinogen 4.0 (<2.0) mg/dL Ur Leukocyte Esterase Negative (Negative) - Radiology Data Radiology results: report reviewed, image reviewed Disposition Clinical Impression: Fall Disposition: HOME SELF-CARE Instructions (If sedation given, give patient instructions): Fall Prevention for Older Adults (ED) Additional Instructions: Return to the emergency department with any new, worsening, or concerning symptoms. Follow up with your primary care provider in 1-2 days. Is patient prescribed a controlled substance at d/c from ED?: No Referrals: Souleymane Persaud MD [Primary Care Provider] - 1-2 days Time of Disposition: 10:14
[2023-11-15 07:52] LABS: Basophils # (A) 0.1 k/uL (0-0.2); Basophils % (A) 0 %; Eosinophils # (A) 0.2 k/uL (0-0.7); Eosinophils % (A) 1 %; HCT 47.1 % (39.0-53.0); HGB 16.1 gm/dL (13.0-17.5); Lymphocytes # (A) 1.6 k/uL (1.0-4.8); Lymphocytes % (A) 10 %; MCH 31.4 pg (25.0-35.0); MCHC 34.2 g/dL (31.0-37.0); MCV 91.9 fL (80.0-100.0); Monocytes % (A) 6 %; Neutrophils # (A) 12.7 k/uL (1.3-7.7); Neutrophils % (A) 82 %; Platelet Count 212 k/uL (150-450); RBC 5.13 m/uL (4.30-5.90); WBC 15.6 k/uL (3.8-10.6)
[2023-11-15 08:12] LABS: ALT 35 U/L (4-49); African American GFR (CKD) >90 (>60 ml/min/1.73 sqM); Albumin 3.9 g/dL (3.5-5.0); Anion Gap 10 mmol/L; Blood Urea Nitrogen 19 mg/dL (9-20); Calcium 8.6 mg/dL (8.4-10.2); Carbon Dioxide 23 mmol/L (22-30); Chloride 104 mmol/L (98-107); Glucose 112 mg/dL (74-99); Non-African American GFR(CKD) 88 (>60 ml/min/1.73 sqM); Sodium 137 mmol/L (137-145); Total Bilirubin 2.4 mg/dL (0.2-1.3); Total Protein 6.4 g/dL (6.3-8.2)
--- NOTE | 2023-11-15 08:23 | XR ---
EXAMINATION TYPE: XR chest 2V DATE OF EXAM: 11/15/2023 COMPARISON: 10/26/2023 TECHNIQUE: PA and lateral views submitted. HISTORY: Weakness FINDINGS: A limited inspiration with ectasia of the aorta. Loop recorder identified. Atherosclerotic change aor ta. Underlying emphysema suspected with no obvious acute consolidation or pneumothorax. No sizable pl eural effusion or overt failure. Linear changes right lung base. Chronic appearing compression deform ities near the thoracolumbar junction. IMPRESSION: 1. Multiple compression fractures near the thoracolumbar junction similar to recent exam. 2. COPD.
[2023-11-15 08:26] LABS: AST 38 U/L (17-59); Alkaline Phosphatase 94 U/L (38-126); Potassium 4.3 mmol/L (3.5-5.1)
[2023-11-15 08:27] LABS: Magnesium 1.7 mg/dL (1.6-2.3)
--- NOTE | 2023-11-15 08:47 | CT ---
EXAMINATION TYPE: CT brain cspine wo con CT DLP: 1273.5 mGycm, Automated exposure control for dose reduction was used. DATE OF EXAM: 11/15/2023 8:15 AM COMPARISON: 10/26/2023 CLINICAL INDICATION:Male, 83 years old with history of Fall; Fall a couple of days ago TECHNIQUE: Brain: Multiple axial CT images of the brain were obtained without IV contrast. Cspine: Axial CT images from the skull base to the inferior aspect of T2 we obtained without intraven ous contrast. Coronal and sagittal reformatted images were also reviewed. FINDINGS: Brain: Extra-axial spaces: No abnormal extra-axial fluid collections. Ventricular system: Dilatation in proportion to cerebral atrophy. Cerebral parenchyma: Similar right frontal lobe prior injuries. Cerebral atrophy. No acute intraparen chymal hemorrhage or mass effect. The shields-white junction is well differentiated. Scattered hypoatte nuating areas are seen within the white matter. Cerebellum: Similar right cerebellar hemisphere prior injury. Mass effect: No evidence of midline shift. Intracranial vasculature: unremarkable Soft tissues: Normal. Calvarium/osseous structures: No depressed skull fracture. Paranasal sinuses and mastoid air cells: Clear. Visualized orbits: Bilateral aphakia Cervical spine: Fracture: None. Osseous structures: Multilevel degenerative disc disease changes with endplate spurring and disc oste ophyte complex's. Vertebral alignment: Within normal limits. Spinal canal/Neural Foramina: No evidence of significant spinal canal narrowing. No evidence for sign ificant neural foraminal stenosis. Neck soft tissues: Prevertebral soft tissues are within normal limits. Other: The airway is patent. Atherosclerosis of the arterial vasculature. The lung apices are clear. IMPRESSION: 1. No acute intracranial process. 2. Nonspecific white matter changes, likely secondary to chronic small vessel ischemic disease. 3. No evidence of cervical spine fracture. 4. Moderate multilevel degenerative disc disease.
[2023-11-15 10:00] LABS: Appearance,Urine Clear (Clear); Bilirubin,Urine Negative (Negative); Blood,Urine Negative (Negative); Color,Urine Yellow; Glucose,Urine (UA) Negative (Negative); Ketones,Urine 1+ (Negative); Leukocyte Esterase,Urine Negative (Negative); Nitrite,Urine Negative (Negative); Protein,Urine Negative (Negative); Specific Gravity,Urine 1.019 (1.001-1.035)
[2023-11-15 11:13] VITALS: BP 126/69; PULSE 73
== END 2023-11-15 11:40 | disposition home or self-care (01) ==
LOC: EC 07:13
DX: S22.000A Wedge compression fracture of unspecified thoracic vertebra, initial encounter for closed fracture (principal); S32.000A Wedge compression fracture of unspecified lumbar vertebra, initial encounter for closed fracture; J44.9 Chronic obstructive pulmonary disease, unspecified; Z86.73 Personal history of transient ischemic attack (TIA), and cerebral infarction without residual deficits; Z79.02 Long term (current) use of antithrombotics/antiplatelets; W18.30XA Fall on same level, unspecified, initial encounter
CPT/HCPCS: 36415; 70450; 71046; 72125; 80053; 81003; 83605; 83735; 85025; 93005; 96360; 99285

== ENCOUNTER 2023-11-16 18:47 | Inpatient (IN) | payer MEDICARE ==
--- NOTE | 2023-11-16 19:33 | ED ---
Lower Extremity Injury HPI - General Source: patient, EMS Mode of arrival: EMS Limitations: altered mental status <Colleen Meléndez - Last Filed: 11/16/23 20:07> - General Source: RN notes reviewed, old records reviewed - History of Present Illness MD Complaint: hip injury -: days(s) Injury: Hip: Right, Pelvis: Right Type of Injury: blunt Place: home Severity: severe Severity scale (1-10): 10 Worsens With: nothing Context: fall Associated Symptoms: swelling, numbness Treatments Prior to Arrival: other (0) <Amarjit You - Last Filed: 11/20/23 16:51> - General Chief Complaint: Extremity Injury, Lower Stated Complaint: Right Hip Pain Time Seen by Provider: 11/16/23 19:32 - History of Present Illness Initial Comments: Quick note: 83-year-old male with history of dementia presenting with chief complaint of right hip pain. Patient fell at his alf in the [employer] yesterday. He was seen here yesterday, he had a brain and C-spine CT a nd chest x-ray. His daughter states that he has been unable to bear weight on the leg. Electronically signed Colleen Meléndez PA-C (Colleen Meléndez) This is a 83-year-old male to the emergency department for evaluation of severe right hip pain after fall. Patient having severe right hip pain persistent here in the ER with altered mental status at baseline (Amarjit You) - Related Data Home Medications Medication Instructions Recorded Confirmed Sertraline [Zoloft] 75 mg PO DAILY 10/26/23 11/16/23 lisinopriL [Zestril] 2.5 mg PO DAILY 10/26/23 11/16/23 Previous Rx's Medication Instructions Recorded Atorvastatin [Lipitor] 80 mg PO HS 30 Days tab 11/05/21 Clopidogrel [Plavix] 75 mg PO DAILY 30 Days tab 11/05/21 Aspirin 325 mg PO BID #60 tab 11/18/23 HYDROcodone/APAP 5-325MG [[place] 1 - 2 tab PO Q6HR PRN #32 tab 11/18/23 5-325] Sennosides [Senokot] 2 tab PO DAILY PRN #60 tablet 11/18/23 Allergies Allergy/AdvReac Type Severity Reaction Status Date / Time No Known Allergies Allergy Verified 11/18/23 14:58 Review of Systems ROS Other: All systems not noted in ROS Statement are negative. <MeléndezZoejones - Last Filed: 11/16/23 20:07> ROS Other: All systems not noted in ROS Statement are negative. <Amarjit You Praveena - Last Filed: 11/20/23 16:51> ROS Statement: Those systems with pertinent positive or pertinent negative responses have been documented in the HPI. 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, CVA/TIA, Dementia History of Any Multi-Drug Resistant Organisms: None Reported Past Surgical History: Unable to Obtain Past Psychological History: No Psychological Hx Reported Smoking Status: Never smoker Past Alcohol Use History: None Reported Past Drug Use History: None Reported <MeléndezZihugo - Last Filed: 11/16/23 20:07> - Past Family History Father Family Medical History: Coronary Artery Disease (CAD) Mother Family Medical History: CVA/TIA <MariamAmarjit mott - Last Filed: 11/20/23 16:51> General Exam Limitations: altered mental status <Zoe Meléndezjones - Last Filed: 11/16/23 20:07> Limitations: altered mental status General appearance: alert, in no apparent distress Head exam: Present: atraumatic, normocephalic, normal inspection Eye exam: Present: normal appearance, PERRL, EOMI. Absent: scleral icterus, conjunctival injection, periorbital swelling ENT exam: Present: normal exam, mucous membranes moist Neck exam: Present: normal inspection. Absent: tenderness, meningismus, lymphadenopathy Respiratory exam: Present: normal lung sounds bilaterally. Absent: respiratory distress, wheezes, rales, rhonchi, stridor Cardiovascular Exam: Present: regular rate, normal rhythm, normal heart sounds. Absent: systolic murmur, diastolic murmur, rubs, gallop, clicks GI/Abdominal exam: Present: soft, tenderness, normal bowel sounds. Absent: distended, guarding, rebound, rigid Extremities exam: Present: normal inspection, full ROM, normal capillary refill. Absent: tenderness, pedal edema, joint swelling, calf tenderness Back exam: Present: normal inspection Neurological exam: Present: alert, oriented X3, CN II-XII intact Psychiatric exam: Present: normal affect, normal mood Skin exam: Present: warm, dry, intact, normal color. Absent: rash <Amarjit You - Last Filed: 11/20/23 16:51> - General Exam Comments Initial Comments: Visual Physical Exam Vital signs reviewed General: Well-appearing, nontoxic, no acute distress. Head: Normocephalic, atraumatic Eyes: PERRLA, EOMI ENT: Airway patent Chest: Nonlabored breathing Skin: No visual rash, normal skin tone Neuro: Alert and altered, history of dementia at baseline Musculoskeletal: No gross abnormalities (Colleen Meléndez) Course <Amarjit You - Last Filed: 11/20/23 16:51> Vital Signs 11/16/23 11/16/23 11/16/23 19:12 22:15 23:15 Temperature 97.3 F L Pulse Rate 74 76 74 Respiratory 18 18 16 Rate Blood Pressure 106/66 121/78 106/67 O2 Sat by Pulse 94 L 95 96 Oximetry 11/17/23 11/17/23 11/17/23 02:15 04:30 06:00 Temperature 98.2 F Pulse Rate 72 67 98 Respiratory 18 16 16 Rate Blood Pressure 131/74 116/74 128/76 O2 Sat by Pulse 97 96 97 Oximetry 11/17/23 11/17/23 11/17/23 07:52 14:14 18:46 Temperature Pulse Rate 73 77 78 Respiratory 18 18 18 Rate Blood Pressure 123/83 123/90 149/78 O2 Sat by Pulse 95 96 95 Oximetry - Reevaluation(s) Reevaluation #1: 11/16/23 21:27 Medical record is reviewed (Amarjit You) Reevaluation #2: 11/16/23 21:32 Patient's pain is controlled (Amarjit You) Reevaluation #3: 11/16/23 21:32 Informed of results and questions answered (Amarjit You) Reevaluation #4: 11/16/23 21:27 Was pt. sent in by a medical professional or institution (, PA, FLAT LOCK OPERATOR, urgent care, hospital, or alf...) When possible be specific @ -no Did you speak to anyone other than the patient for history (EMS, parent, family, police, friend...)? What history was obtained from this source @ -no Did you review nursing and triage notes (agree or disagree)? Why? @ -agree Are old charts reviewed (outside hosp., previous admission, EMS record, old EKG, old radiological studies, urgent care reports/EKG's, alf records)? Report findings @ -yes Differential Diagnosis (chest pain, altered mental status, abdominal pain women, abdominal pain men, vaginal bleeding, weakness, fever, dyspnea, syncope, headache, dizziness, GI bleed, back pain, seizure, CVA, palpatations, mental hea lth, musculoskeletal)? @ -prior EKG interpreted by me (3pts min.). @ -no X-rays interpreted by me (1pt min.). @ -yes positive for fracture CT interpreted by me (1pt min.). @ -no U/S interpreted by me (1pt. min.). @ -no What testing was considered but not performed or refused? (CT, X-rays, U/S, labs)? Why? @ -none What meds were considered but not given or refused? Why? @ -none Did you discuss the management of the patient with other professionals (professionals i.e. , PA, FLAT LOCK OPERATOR, lab, RT, psych nurse, social service worker, slip maker, teacher, real estate officer, returned case inspector)? Give summary @ -no Was smoking cessation discussed for >3mins.? @ -no Was critical care preformed (if so, how long)? @ -no Were there social determinants of health that impacted care today? How? (Homelessness, low income, unemployed, alcoholism, drug addiction, transportation, low edu. Level, literacy, decrease access to med. care, correction, rehab)? @ -none Was there de-escalation of care discussed even if they declined (Discuss DNR or withdrawal of care, Hospice)? DNR status @ -no What co-morbidities impacted this encounter? (DM, HTN, Smoking, COPD, CAD, Cancer, CVA, ARF, Chemo, Hep., AIDS, mental health diagnosis, sleep apnea, morbid obesity)? @ -none Was patient admitted / discharged? Hospital course, mention meds given and route, prescriptions, significant lab abnormalities, going to OR and other pertinent info. @ - 83 male to the ER for evaluation of a fall. Patient has fall with right hip fracture. Patient will be admitted for evaluation. Admitted Undiagnosed new problem with uncertain prognosis? @ -no Drug Therapy requiring intensive monitoring for toxicity (Heparin, Nitro, Insulin, Cardizem)? @ -no Were any procedures done? @ -no Diagnosis/symptom? @ -Right hip fracture Acute, or Chronic, or Acute on Chronic? @ -Acute Uncomplicated (without systemic symptoms) or Complicated (systemic symptoms)? @ -Complicated Side effects of treatment? @ -no Exacerbation, Progression, or Severe Exacerbation? @ -exacerbation Poses a threat to life or bodily function? How? (Chest pain, [place], IL, pneumonia, PE, COPD, DKA, ARF, appy, cholecystitis, CVA, Diverticulitis, Homicidal, Suicidal, threat to staff... and all critical care pts) @ -yes fall with extreme of age (Amarjit You) Reevaluation #5: 11/16/23 21:32 Differential Weakness: Hypoglycemia, shock, sepsis, hyponatremia, anemia, infection, [place], ETOH, adverse medicine reaction, overdose, stroke, this is not meant to be an all-inclusive list. (Amarjit You) - Consultations Consultation #1: spoke w Orthopedics who agree to admit the patient (Amarjit You) Medical Decision Making - Lab Data Result diagrams: 11/20/23 05:53 11/20/23 05:53 - Radiology Data Radiology results: report reviewed (CXR and R hip is positive for R hip fracture), image reviewed <Amarjit You - Last Filed: 11/20/23 16:51> - Medical Decision Making 83 male to the ER for evaluation of a fall. Patient has fall with right hip fracture. Patient will be admitted for evaluation (Amarjit You) Disposition <Colleen Meléndez - Last Filed: 11/16/23 20:07> Is patient prescribed a controlled substance at d/c from ED?: No Time of Disposition: 21:20 <Amarjit You - Last Filed: 11/20/23 16:51> Clinical Impression: Fall, Weakness, Closed right hip fracture Disposition: ADMITTED IP TO THIS HOSP Condition: Fair
--- NOTE | 2023-11-16 20:16 | XR ---
Pelvis. HISTORY: Fall. COMPARISON: None. TECHNIQUE: Single AP view the pelvis is obtained. FINDINGS: The pelvis is intact and there is no fracture. There is no diastases of the SI joints or pubic symphy sis. There is a subcapital fracture of the right hip. IMPRESSION: 1. Subcapital fracture of the right hip. 2. No pelvic fracture.
--- NOTE | 2023-11-16 20:18 | XR ---
Right femur. HISTORY: Pain following trauma COMPARISON: None TECHNIQUE: 4 views of the right femur were obtained. There is a subcapital fracture of the right hip. The remainder the femur is intact. There is scattere d arterial vascular calcifications. IMPRESSION: Subcapital fracture of the right hip.
[2023-11-16] MEDS ORDERED: NALOXONE 0.4 MG/ML 1 ML VIAL IV PRN (21:22)
[2023-11-16] MEDS ORDERED: MORPHINE SULFATE 4 MG/ML SYRINGE IV PRN (21:22)
[2023-11-16] MEDS ORDERED: ONDANSETRON 4 MG/2 ML VIAL IVP PRN (21:22)
[2023-11-17] MEDS: SODIUM CHLORIDE 0.9% 1,000 ML IV SCH ×2 (01:54→11:18)
[2023-11-17 06:52] LABS: Basophils % (A) 0 %; Eosinophils # (A) 0.7 k/uL (0-0.7); Eosinophils % (A) 7 %; HCT 44.9 % (39.0-53.0); HGB 15.6 gm/dL (13.0-17.5); Lymphocytes # (A) 1.6 k/uL (1.0-4.8); Lymphocytes % (A) 16 %; MCH 32.1 pg (25.0-35.0); MCHC 34.7 g/dL (31.0-37.0); MCV 92.4 fL (80.0-100.0); Mean Platelet Volume 7.6; Monocytes # (A) 0.9 k/uL (0-1.0); Monocytes % (A) 9 %; Neutrophils # (A) 6.5 k/uL (1.3-7.7); Neutrophils % (A) 67 %; Platelet Count 182 k/uL (150-450); RBC 4.86 m/uL (4.30-5.90); RDW 13.2 % (11.5-15.5); WBC 9.7 k/uL (3.8-10.6)
[2023-11-17 07:27] LABS: ALT 27 U/L (4-49); AST 35 U/L (17-59); African American GFR (CKD) >90 (>60 ml/min/1.73 sqM); Albumin 3.4 g/dL (3.5-5.0); Alkaline Phosphatase 82 U/L (38-126); Anion Gap 8 mmol/L; Blood Urea Nitrogen 24 mg/dL (9-20); Calcium 8.6 mg/dL (8.4-10.2); Carbon Dioxide 22 mmol/L (22-30); Chloride 110 mmol/L (98-107); Glucose 96 mg/dL (74-99); Magnesium 2.1 mg/dL (1.6-2.3); Non-African American GFR(CKD) 90 (>60 ml/min/1.73 sqM); Phosphorus 3.7 mg/dL (2.5-4.5); Potassium 3.9 mmol/L (3.5-5.1); Sodium 140 mmol/L (137-145); Total Bilirubin 2.2 mg/dL (0.2-1.3); Total Protein 5.9 g/dL (6.3-8.2)
[2023-11-17] MEDS: PANTOPRAZOLE 40 MG/10 ML VIAL IV SCH (08:49)
--- NOTE | 2023-11-17 17:26 | P.HPOR ---
History of Present Illness H&P Date: 11/17/23 This is an 83-year-old male who is admitted for hip fracture. Patient has a past medical history significant for dementia and is a poor historian. History is obtained from the patient's daughter at bedside today. Patient is seen and evaluated at bedside today in the emergency room. According to the patient's daughter Pantera fell earlier this week at [facility]. Patient was initially evaluated in the emergency room, but at the time did not have hip pain and was discharged back to the [facility]. In the following days the patient was unable to bear any weight on the right leg and developed pain in the right hip and was evaluated in the emergency room again. X-rays of the right hip revealed a right femoral neck fracture and patient was admitted for further management. The patient's daughter states that the patient usually requires assistance with transfers and mobilization. Patient is on Plavix and has history of CVA. Review of Systems ROS unobtainable: due to mental status 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, CVA/TIA, Dementia History of Any Multi-Drug Resistant Organisms: None Reported Past Surgical History: Unable to Obtain Past Psychological History: No Psychological Hx Reported Smoking Status: Never smoker Past Alcohol Use History: None Reported Past Drug Use History: None Reported Medications and Allergies Home Medications Medication Instructions Recorded Confirmed Type Atorvastatin [Lipitor] 80 mg PO HS 30 Days tab 11/05/21 11/16/23 Rx Clopidogrel [Plavix] 75 mg PO DAILY 30 Days tab 11/05/21 11/16/23 Rx Sertraline [Zoloft] 75 mg PO DAILY 10/26/23 11/16/23 History lisinopriL [Zestril] 2.5 mg PO DAILY 10/26/23 11/16/23 History Allergies Allergy/AdvReac Type Severity Reaction Status Date / Time No Known Allergies Allergy Verified 11/16/23 22:11 Physical Examination On exam patient is resting comfortably in bed in no acute distress. Patient is alert but confused. Right lower extremity: The right lower extremity is shortened and externally rotated. The right lower extremity is warm and well perfused. Calf is soft and nontender to palpation. Patient has full range of motion of the right foot and ankle. Sensation intact. Neurovascular status and circulatory status are intact. Head is normocephalic and atraumatic. Exams of bilateral upper extremities and the left lower extremity are within normal limits. Results X-rays of the right hip and pelvis are reviewed revealing right femoral neck fracture. - Labs Labs: Abnormal Lab Results - Last 24 Hours (Table) 11/17/23 Range/Units 06:42 Chloride 110 H (98-107) mmol/L BUN 24 H (9-20) mg/dL Total Bilirubin 2.2 H (0.2-1.3) mg/dL Total Protein 5.9 L (6.3-8.2) g/dL Albumin 3.4 L (3.5-5.0) g/dL H & H 11/17/23 Range/Units 06:42 Hgb 15.6 (13.0-17.5) gm/dL Hct 44.9 (39.0-53.0) % Result Diagrams: 11/17/23 06:42 11/17/23 06:42 Assessment and Plan (1) Closed right hip fracture Current Visit: Yes Status: Acute Code(s): S72.001A - FRACTURE OF UNSP PART OF NECK OF RIGHT FEMUR, INIT SNOMED Code(s): 729624676 (2) Fall Current Visit: Yes Status: Acute Code(s): W19.XXXA - UNSPECIFIED FALL, INI TIAL ENCOUNTER SNOMED Code(s): 8584878 Plan: 1. NPO after midnight. 2. Continue pain control and bedrest. 3. Planning for right hip hemiarthroplasty with direct anterior approach on 11/18/2023 pending medical clearance and patient consent.
[2023-11-17] MEDS: ATORVASTATIN 80 MG TAB PO SCH (22:09)
[2023-11-18] MEDS: SODIUM CHLORIDE 0.9% 1,000 ML IV SCH ×7 (02:42→23:30)
[2023-11-18] MEDS: SERTRALINE 25 MG TAB PO SCH (09:22)
[2023-11-18] MEDS: PANTOPRAZOLE 40 MG/10 ML VIAL IV SCH (09:22)
[2023-11-18] MEDS ORDERED: TRANEXAMIC 1,000 MG/100ML-NACL 1,000 MG in SALINE 1 100ML.BAG IVPB PRN (15:00)
[2023-11-18] MEDS ORDERED: MAGNESIUM HYDROXIDE 2,400 MG/30 ML CUP PO PRN (15:09)
[2023-11-18] MEDS ORDERED: ONDANSETRON 4 MG/2 ML VIAL IVP PRN (15:09)
[2023-11-18] MEDS ORDERED: NALOXONE 0.4 MG/ML 1 ML VIAL IV PRN (15:09)
[2023-11-18] MEDS ORDERED: HYDROmorphone 0.5 MG/0.5 ML SYRINGE IVP PRN ×3 (15:09)
[2023-11-18] MEDS ORDERED: HYDROcodone/APAP 5-325MG 1 EACH TAB PO PRN (15:11)
[2023-11-18] MEDS ORDERED: NEOSTIGMINE 1 MG/ML 10 ML VIAL ONE (15:18)
[2023-11-18] MEDS ORDERED: PROPOFOL 10 MG/ML 20 ML VIAL IV ONE (15:18)
[2023-11-18] MEDS ORDERED: ROCURONIUM 10 MG/ML (5 ML VIAL) IV ONE (15:18)
[2023-11-18] MEDS ORDERED: fentaNYL (PF) 50 MCG/ML 2 ML AMP ONE (15:18)
[2023-11-18] MEDS ORDERED: GLYCOPYRROLATE 0.2 MG/ML 2 ML VIAL ONE (15:18)
[2023-11-18] MEDS ORDERED: TRANEXAMIC 1,000 MG/100ML-NACL PREMIX BAG ONE (15:18)
[2023-11-18] MEDS ORDERED: LIDOCAINE 1% INJ 10MG/ML (20 ML MDV) ONE (15:18)
[2023-11-18] MEDS ORDERED: ceFAZolin 1,000 MG in SODIUM CHLORIDE 0.9% 1,000 ML IRRIGATION ONE (15:53)
--- NOTE | 2023-11-18 16:21 | P.OP ---
Date of Procedure: 11/18/23 Preoperative Diagnosis: Subcapital fracture right hip Postoperative Diagnosis: Subcapital fracture right hip Procedure(s) Performed: Right hip hemiarthroplasty with a direct anterior approach Implants: Brownlee and nephew Polarstem size 5 standard with a collar Brownlee & Nephew tandem unipolar, 49 mm Brownlee & Nephew tandem unipolar 12/14 taper sleeve, +0 mm All components were press-fit. Anesthesia: GETA Surgeon: Suresh Chin Dobby Looms Pegger #1: Cherelle Sanchez Estimated Blood Loss (ml): 300 Pathology: none sent Condition: stable Disposition: PACU Indications for Procedure: This is an 83-year-old male that sustained a ground-level fall. He presented to the emergency room with pain in his right hip. X-rays demonstrate a subcapital fracture of his right hip. After discussing the surgical and nonsurgical treatment options with his family at length, I recommended a right hip hemiarthroplasty with a direct anterior approach. Informed consent was obtained Operative Findings: The operative findings are consistent with a subcapital fracture of the right hip Description of Procedure: The patient was seen and evaluated in the preoperative area and the consent was reviewed. The operative site was marked with a skin marker. The patient verified the procedure and operative site. A FAREED block was placed by anesthesia in the preoperative area. The patient was then brought to the operating room and given preoperative antibiotics intravenously. 1 g of Tranexamic acid was also given intravenously. A general anesthetic was administered by the anesthesia department. The patient was then placed on the Cactus table with the bony prominences well-padded. The hip area was then prepped with a ChloraPrep solution and draped in the usual sterile fashion. A universal timeout was then performed, which confirmed the patient's name, surgical site, ALLERGIES, and procedure being performed on the consent. Next the incision site was located at 1 cm distal and 4 cm lateral to the anterior superior iliac spine. The skin and subcutaneous tissues were sharply incised. Incision was carefully dissected down to the fascia overlying the tensor fascia angie muscle. This fascia was then incised in line with the muscle fibers. Care was taken to stay laterally in order to avoid injuring the lateral femoral cutaneous nerve. Next, using blunt finger dissection, the tensor fascia angie muscle was dissected off its investing fascia. The muscle was then carefully retracted laterally with a cobra retractor over the lateral neck of the femur. Next, the circumflex vessels were identified and cauterized using the Aquamantis device. The anterior hip capsule was then exposed. The capsule was then opened and an inverted T fashion. The retractors were then placed intracapsularly. The retractors were maintained intracapsular throughout the procedure. The proximal femur was then visualized. A small amount of traction was placed on the leg. The femoral neck was then osteotomized at the appropriate level above the lesser trochanter. A small wedge of bone was then removed from the remaining femoral head. Next, using a corkscrew the femoral head was removed from the acetabulum. The femoral head was then measured. Attention was then turned to the acetabulum. The acetabulum was exposed and inspected. There was no evidence of any significant arthrosis. Attention was then directed to the femur. With the aid of the Cactus table, the femur was externally rotated to approximately 130, extended, and adducted under the opposite leg. A side hook was then placed under the proximal femur, and the side hook elevator was used to elevate the proximal femur while releasing the capsule. Retractors were then placed. A capsular release was performed, as w ell as a release of the conjoined tendon, which afforded excellent visualization of the proximal femur. Next, a box osteotome was used to lateralize the proximal femur. A warp hand was then used to locate the femoral canal. Sequential broaching was then performed with appropriate size which afforded excellent fixation in the proximal femur. A trial was then placed with appropriate head and neck, and the hip was gently reduced with the aid of the Cactus table. Fluoroscopy was then used to check position of the components, as well as to evaluate the leg lengths and offset. The leg lengths and offset were measured as closely as possible to ensure stability of the hip. The hip was then gently dislocated and the trials were then removed. Final implants were then impacted and the hip was again reduced. Final fluoroscopic x-rays confirmed that the components were in anatomic position. The leg lengths and offset were measured and were found to coincide with the trial measurements. T he hip was also taken through range of motion, and found to be stable. The hip was then copiously irrigated with antibiotic solution with pulsatile lavage. The hip was then irrigated with Irrisept solution. The fascia was then closed with 2-0 strata fix suture. The subcutaneous tissue was closed with 3-0 Vicryl. The subcuticular tissue was closed with 3-0 strata fix suture. The skin was then closed with Exofin skin glue. After the glue and dried, and Optifoam silver impregnated dressing was applied. The patient was then transferred to the recovery room in stable condition. The dietitian assistant JONATHON Ballard was required due to the complexity of surgery, and the need for skilled graduate teaching assistant for positioning, draping, exposure, retraction, and closure of the wound.
--- NOTE | 2023-11-18 18:03 | XR ---
EXAMINATION TYPE: XR chest 1V portable DATE OF EXAM: 11/18/2023 COMPARISON: 11/15/2023 HISTORY: Chest congestion TECHNIQUE: Single frontal view of the chest is obtained. FINDINGS: There is been interval development of small amount of fluid within the minor fissure but there is no airspace consolidation. There is no pleural effusion or pneumothorax. The heart and pulmonary vascula ture are normal. The osseous structures are intact. IMPRESSION: Mild fluid within the minor fissure but no other significant abnormality seen.
--- NOTE | 2023-11-18 18:05 | XR ---
Right hip. History: Right hip replacement, postop valuation. COMPARISON: 11/18/2023. TECHNIQUE: Single AP view of the right hip was obtained FINDINGS: There is a right hip prosthesis which appears to be in near anatomic alignment. There is no fracture or dislocation. IMPRESSION: Satisfactory postoperative right hip
[2023-11-18] MEDS ORDERED: SODIUM CHLORIDE 0.9% 500 ML 500 ML IV ONE (19:11)
--- NOTE | 2023-11-18 19:33 | XR ---
Intraoperative/procedural fluoroscopic services were provided. Total fluoroscopy time is 6.7 seconds with a total of 3 submitted images to PACS. Please see the operative/procedural note for further deta ils. DAP: 0.5 mGym2. Impression: Intraoperative fluoroscopic images. Please see dedicated operative/procedure note for further details .
[2023-11-18] MEDS: SENNOSIDES-DOCUSATE SODIUM 1 EACH TAB PO SCH (20:34)
[2023-11-18] MEDS: ATORVASTATIN 80 MG TAB PO SCH (20:34)
[2023-11-18] MEDS ORDERED: ASPIRIN 325 MG TAB PO SCH (21:00)
--- NOTE | 2023-11-18 23:34 | FL ---
EXAMINATION TYPE: FL guidance operating room Intraoperative/procedural fluoroscopic services were pro vided. Total fluoroscopy time is 6 seconds with a total of 3 submitted images to PACS. Please see the operative/procedural note for further details. DAP: 0.5496 Gycm2
[2023-11-19 00:57] LABS: Basophils % (A) 0 %; Eosinophils % (A) 0 %; Lymphocytes # (A) 0.7 k/uL (1.0-4.8); Lymphocytes % (A) 5 %; MCH 32.4 pg (25.0-35.0); Mean Platelet Volume 8.4; Monocytes % (A) 7 %; Neutrophils # (A) 13.5 k/uL (1.3-7.7); Neutrophils % (A) 88 %; Platelet Count 214 k/uL (150-450); RBC 3.68 m/uL (4.30-5.90); RDW 13.2 % (11.5-15.5); WBC 15.4 k/uL (3.8-10.6)
[2023-11-19 01:14] LABS: HGB 11.9 gm/dL (13.0-17.5)
--- NOTE | 2023-11-19 01:56 | PN ---
PROGRESS NOTE SUBJECTIVE: He is postop right hip replacement. Remains on broad-spectrum antibiotics for pain control. He has been hypotensive postop. He has been given fluid bolus of 500 mL. Possibly increase his fluids to 150 overnight due to hypotension for cardiac workup. OBJECTIVE: CARDIOVASCULAR: S1, S2. LUNGS: Clear. GI: Soft. HEMATOLOGY: Negative for Homans. PLAN: Continue with cefazolin, Lipitor, aspirin, Protonix, Zoloft. Prognosis guarded. Please see further orders. Possible discharge home in a rehab center. MMODL / IJN: [id number] /
[2023-11-19] MEDS: SODIUM CHLORIDE 0.9% 1,000 ML IV SCH ×4 (04:11→21:31)
--- NOTE | 2023-11-19 08:19 | P.PN ---
Progress Note - Text Progress Note Date: 11/19/23 Orthopedics: History of present illness: Patient is a very pleasant 83-year-old male who is seen and examined at bedside for evaluation of his right hip. He is status post right hip hemiarthroplasty performed yesterday, when he T 2023. He states his right hip pain has been medically controlled. He is not currently complaining of any pain. He is eating and voiding without significant difficulty. Is looking forward working with physical therapy. Currently, consult was placed for case management to discuss possible discharged to rehabilitation facility once cleared. Nursing states patient is having some difficulty with hypotension this morning. He's being seen and examined in managed by medicine. Consultation has also been placed for cardiology by medicine. Patient is currently on Plavix and aspirin. Plavix is being restarted this morning. Physical Exam Hip Hemiarthroplasty: Status post surgical day number 1 Patient is examined sitting bedside lying in bed Patient is awake, alert, and oriented 3 Vital signs stable Good chest excursion with deep inspiration and expiration No signs or symptoms of DVT; no calf pain Lower extremity cuffs not currently in place bilaterally Dressing of the right hip is clean, dry, and intact; no erythema, purulence, or signs of infection No significant pain with palpation over the surgical site Full range of motion of ankles bilaterally Dorsiflexion, plantarflexion, and extensor hallucis longus positive sustained bilaterally Neurovascularly intact bilateral lower extremities Assessment: Status post right hip hemiarthroplasty for right femoral neck fracture Status post fall History of CVA/TIA Dementia Hypotension Plan: 1. Patient may continue to weight-bear as tolerated on the right lower extremity; patient may work with physical therapy to increase mobility and ambulation 2. Continue pain control IV Dilaudid and oral hydrocodone as prescribed as needed for pain control 3. Medicine to continue following the patient for their other medical medical diagnoses 4. Continue with with anticoagulation therapy with Plavix and aspirin 5. We'll continue to follow the patient; depending on his progress, we may plan for discharge to a rehabilitation facility as early as tomorrow, 11/20/2023, if medically stable from a medicine and cardiology standpoint and patient has been approved by his insurance. If these things are unable to happen tomorrow, he'll most likely remain in the hospital over the weekend with plans for discharge as early as this coming 11/22/2023. 6. Patient is currently for consultation by cardiology 7. Patient can follow-up with Dr. Suresh Chin at [facility] in 2-3 weeks following discharge
[2023-11-19] MEDS: SERTRALINE 25 MG TAB PO SCH (08:52)
[2023-11-19] MEDS: CLOPIDOGREL 75 MG TAB PO SCH (08:52)
[2023-11-19] MEDS: PANTOPRAZOLE 40 MG/10 ML VIAL IV SCH (08:52)
--- NOTE | 2023-11-19 09:15 | P.CRDCN ---
History of Present Illness History of present illness: HISTORY OF PRESENT ILLNESS: This is a 83-year-old male with a past medical history significant for CVA, hypertension and hyperlipidemia. Patient follows in the office with Dr. Gregorio. We have been asked to see the patient in consultation for abnormal EKG. Patient examined at the bedside. Patient is status post right hip surgery. Patient was hypotensive overnight and received IV fluid hydration. Hypotension has resolved since morning. The patient denies any chest pain or pressure. He denies any shortness of breath. * EKG reveals sinus mechanism with no signs of acute ischemia * Chest xray mild fluid within the minor fissure but no other significant abnormalities seen * Laboratory data: Troponin negative 2 * Current home cardiac medications include lisinopril 2.5 mg daily, Plavix 75 mg daily, Lipitor 80 mg at night * Most recent echocardiogram obtained in August 2021 revealed ejection fraction 55-60%, mild MR, mild TR. REVIEW OF SYSTEMS: At the time of my exam: CONSTITUTIONAL: Denies fever or chills. HEENT: Denies blurred vision, vision changes, or eye pain. Denies hemoptysis CARDIOVASCULAR: Denies chest pain. Denies orthopnea. Denies PND. Denies palpitations RESPIRATORY: Denies shortness of breath. GASTROINTESTINAL: Denies abdominal pain. Denies nausea or vomiting. HEMATOLOGIC: Denies bleeding disorders. GENITOURINARY: Denies any blood in urine. SKIN: Denies pruitis. Denies rash. PHYSICAL EXAM: VITAL SIGNS: Reviewed. GENERAL: Well-developed in no acute distress. HEENT: Head is normocephalic. Pupils are equal, round. Sclerae anicteric. Mucous membranes of the mouth are moist. Neck supple. No JVD or thyromegaly LUNGS: Respirations even and unlabored. Lungs essentially clear to auscultation bilaterally. HEART: Regular rate and rhythm. S1 and S2 heard. ABDOMEN: Soft. Nondistended. Nontender. EXTREMITIES: Normal range of motion. No clubbing or cyanosis. Peripheral pulses intact. No lower extremity edema NEUROLOGIC: Awake and alert. ASSESSMENT: Right hip fracture, status post right hip hemiarthroplasty Hypertension Hyperlipidemia History of CVA History of tremors PLAN: An acute coronary event has been ruled out Obtain 2-D echo to assess cardiac structure and function Patient is currently stable for discharge from a cardiac standpoint Nurse practitioner note has been reviewed by physician. Signing provider agrees with the documented findings, assessment, and plan of care. Past Medical History Past Medical History: CVA/TIA, Dementia Additional Past Medical History / Comment(s): multiple strokes 2.5 years on both sides of brain per daughter with maybe some right side ue weakness. History of Any Multi-Drug Resistant Organisms: None Reported Past Surgical History: No Surgical Hx Reported Past Anesthesia/Blood Transfusion Reactions: No Reported Reaction Past Psychological History: No Psychological Hx Reported Smoking Status: Never smoker Past Alcohol Use History: None Reported Past Drug Use History: None Reported - Past Family History Father Family Medical History: Coronary Artery Disease (CAD) Mother Family Medical History: CVA/TIA Medications and Allergies Home Medications Medication Instructions Recorded Confirmed Type Atorvastatin [Lipitor] 80 mg PO HS 30 Days tab 11/05/21 11/16/23 Rx Clopidogrel [Plavix] 75 mg PO DAILY 30 Days tab 11/05/21 11/16/23 Rx Sertraline [Zoloft] 75 mg PO DAILY 10/26/23 11/16/23 History lisinopriL [Zestril] 2.5 mg PO DAILY 10/26/23 11/16/23 History Aspirin 325 mg PO BID #60 tab 11/18/23 Rx HYDROcodone/APAP 5-325MG [Strang 1 - 2 tab PO Q6HR PRN #32 tab 11/18/23 Rx 5-325] Sennosides [Senokot] 2 tab PO DAILY PRN #60 tablet 11/18/23 Rx Allergies Allergy/AdvReac Type Severity Reaction Status Date / Time No Known Allergies Allergy Verified 11/18/23 14:58 Physical Exam Vitals: Vital Signs Temp Pulse Resp BP BP Pulse Ox 11/19/23 02:33 97.7 F 82 21 101/55 92 L 11/18/23 23:53 105/55 11/18/23 23:26 83/34 11/18/23 20:00 86/50 11/18/23 19:45 91/52 11/18/23 19:37 97.7 F 73 21 107/61 96 11/18/23 19:30 84/45 11/18/23 19:15 73/42 11/18/23 19:00 71/33 11/18/23 18:45 64 82/42 94/56 11/18/23 18:30 80/43 11/18/23 18:15 85/49 11/18/23 18:00 93/58 11/18/23 17:49 80 16 107/55 96 11/18/23 17:34 81 16 105/58 97 11/18/23 17:19 85 16 131/63 96 11/18/23 17:04 91 16 133/85 96 11/18/23 16:50 97 16 156/90 95 11/18/23 16:35 97.3 F L 94 16 150/77 96 11/18/23 14:53 98.6 F 66 16 117/63 95 11/18/23 09:00 93/61 11/18/23 08:45 95/58 11/18/23 08:30 114/65 11/18/23 08:15 97/59 11/18/23 07:16 97.5 F L 67 18 128/69 93 L Intake and Output 11/18/23 11/18/23 11/19/23 14:59 22:59 06:59 Intake Total 501 1350 Output Total 300 3900 Balance 201 -2550 Intake: IV 501 Oral 1350 Output: Urine 3900 Estimated Blood Loss 300 Other: Voiding Method Diaper Diaper # Voids 3 Weight 65.771 kg Results 11/19/23 00:35 11/17/23 06:42 Cardiac Enzymes 11/19/23 Range/Units 00:35 Troponin I 0.020 (0.000-0.034) ng/mL CBC 11/19/23 Range/Units 00:35 WBC 15.4 H (3.8-10.6) k/uL RBC 3.68 L (4.30-5.90) m/uL Hgb 11.9 L D (13.0-17.5) gm/dL Hct 35.0 L (39.0-53.0) % Plt Count 214 (150-450) k/uL Current Medications Generic Name Dose Route Start Last Admin Trade Name Freq PRN Reason Stop Dose Admin Hydrocodone Bitart/Acetaminophen 1 each 11/18/23 15:11 Hydrocodone/Apap 5-325mg 1 Each Tab PO Q6HR PRN Pain Scale 1 to 5 Hydrocodone Bitart/Acetaminophen 2 each 11/18/23 15:11 Hydrocodone/Apap 5-325mg 1 Each Tab PO Q6HR PRN Pain Scale 6 to 10 Aspirin 325 mg 11/19/23 21:00 Aspirin 325 Mg Tab PO BID KALLIE Atorvastatin Calcium 80 mg 11/17/23 21:00 11/18/23 20:34 Atorvastatin 80 Mg Tab PO 80 mg HS KALLIE Administration Hydromorphone HCl 0.125 mg 11/18/23 15:09 Hydromorphone 0.5 Mg/0.5 Ml Syringe IVP Q3HR PRN Pain Scale 1 to 3 Hydromorphone HCl 0.5 mg 11/18/23 15:09 Hydromorphone 0.5 Mg/0.5 Ml Syringe IVP Q3HR PRN Pain Scale 7 to 10 Hydromorphone HCl 0.25 mg 11/18/23 15:09 Hydromorphone 0.5 Mg/0.5 Ml Syringe IVP Q3HR PRN Pain Scale 4 to 6 Sodium Chloride 1,000 mls @ 70 mls/hr 11/18/23 15:15 11/18/23 22:14 Saline 0.9% IV 70 mls/hr .[id number] KALLIE Administration Cefazolin Sodium 2 gm/ Sodium 50 mls @ 100 mls/hr 11/19/23 00:00 11/19/23 00:39 Chloride IVPB 11/19/23 08:29 100 mls/hr Q8HR KALLIE Administration Protocol Sodium Chloride 1,000 mls @ 150 mls/hr 11/18/23 23:45 11/19/23 04:11 Saline 0.9% IV 150 mls/hr .Q6H40M KALLIE Administration Lisinopril 2.5 mg 11/18/23 09:00 11/18/23 09:22 Lisinopril 2.5 Mg Tab PO 2.5 mg DAILY KALLIE Administration Magnesium Hydroxide 2,400 mg 11/18/23 15:09 Magnesium Hydroxide 2,400 Mg/30 Ml Cup PO DAILY PRN Constipation Morphine Sulfate 4 mg 11/16/23 21:22 Morphine Sulfate 4 Mg/Ml Syringe IV Q4HR PRN Severe Pain (Scale 7 to 10) Naloxone HCl 0.2 mg 11/18/23 15:09 Naloxone 0.4 Mg/Ml 1 Ml Vial IV Q2M PRN Opioid Reversal Ondansetron HCl 4 mg 11/18/23 15:09 11/18/23 15:17 Ondansetron 4 Mg/2 Ml Vial IVP 4 mg Q8H PRN Administration Nausea And Vomiting Pantoprazole Sodium 40 mg 11/17/23 09:00 11/18/23 09:22 Pantoprazole 40 Mg/10 Ml Vial IV 40 mg DAILY KALLIE Administration Senna/Docusate Sodium 2 each 11/18/23 21:00 11/18/23 20:34 Sennosides-Docusate Sodium 1 Each Tab PO 2 each HS KALLIE Administration Sertraline HCl 75 mg 11/18/23 09:00 11/18/23 09:22 Sertraline 25 Mg Tab PO 75 mg DAILY KALLIE Administration Intake and Output 11/18/23 11/18/23 11/19/23 14:59 22:59 06:59 Intake Total 501 1350 Output Total 300 3900 Balance 201 -2550 Intake: IV 501 Oral 1350 Output: Urine 3900 Estimated Blood Loss 300 Other: Voiding Method Diaper Diaper # Voids 3 Weight 65.771 kg Patient Weight 11/19/23 06:59 Weight 65.771 kg 11/19/23 00:35 11/17/23 06:42
[2023-11-19 09:58] LABS: Basophils # (A) 0.1 k/uL (0-0.2); Basophils % (A) 1 %; Eosinophils % (A) 0 %; HCT 33.2 % (39.0-53.0); Lymphocytes # (A) 0.9 k/uL (1.0-4.8); Lymphocytes % (A) 8 %; MCH 31.5 pg (25.0-35.0); MCHC 33.1 g/dL (31.0-37.0); MCV 95.1 fL (80.0-100.0); Mean Platelet Volume 9.1; Monocytes % (A) 9 %; Neutrophils # (A) 9.4 k/uL (1.3-7.7); Neutrophils % (A) 82 %; Platelet Count 219 k/uL (150-450); RBC 3.49 m/uL (4.30-5.90); RDW 13.1 % (11.5-15.5); WBC 11.5 k/uL (3.8-10.6)
--- NOTE | 2023-11-19 12:12 | CA ---
Transthoracic Echo Report Name: Pantera Antunez Age: 83 Gender: M : 1940 Exam Date: 11/19/2023 11:03 Exam Location: [place] [facility] Ht (in): 69 Wt (lb): 145 Ordering Physician: Jessica Amezcua Attending/Referring Phys: [id number], [employer] Vent[employer] Equipment Tender Santana Mendez Procedure CPT: Indications: LV function Cardiac Hx: Technical Quality: Technically difficult study Contrast 1: Total Dose (mL): Contrast 2: Total Dose (mL): MEASUREMENTS (Male / Female) Normal Values 2D ECHO LV Diastolic Diameter PLAX 2.9 cm 4.2 - 5.9 / 3.9 - 5.3 cm LV Systolic Diameter PLAX 2.4 cm IVS Diastolic Thickness 1.4 cm 0.6 - 1.0 / 0.6 - 0.9 cm LVPW Diastolic Thickness 2.2 cm 0.6 - 1.0 / 0.6 - 0.9 cm LV Relative Wall Thickness 1.2 RV Internal Dim ED PLAX 2.9 cm LVOT Diameter 2.3 cm Aortic Root Diameter 3.4 cm LA Systolic Diameter LX 1.8 cm 3.0 - 4.0 / 2.7 - 3.8 cm LV Diastolic Volume MOD 4C 44.5 cm??? LV Systolic Volume MOD 4C 15.7 cm??? LV Ejection Fraction MOD 4C 64.6 % LV Cardiac Index MOD 4C 1303.4 cm???/min???m??? LV Diastolic Length 4C 7.2 cm LV Systolic Length 4C 5.9 cm LV Diastolic Volume MOD 2C 13.3 cm??? LV Diastolic Length 2C 7.0 cm DOPPLER AV Peak Velocity 137.8 cm/s AV Peak Gradient 7.6 mmHg AI Peak Velocity 307.4 cm/s AI Peak Gradient 37.8 mmHg AI Pressure Half Time 612.0 ms LVOT Peak Velocity 101.3 cm/s LVOT Peak Gradient 4.1 mmHg LVOT Velocity Time Integral 20.0 cm LVOT Stroke Volume 82.6 cm??? LVOT Stroke Volume Index 45.9 ml/m??? LVOT Cardiac Index 3746.3 cm???/min???m??? AV Area Cont Eq pk 3.0 cm??? MV Peak Velocity 106.8 cm/s MV Peak Gradient 4.6 mmHg MV Mean Velocity 60.4 cm/s MV Mean Gradient 1.8 mmHg MV Velocity Time Integral 30.9 cm Mitral E Point Velocity 69.1 cm/s Mitral A Point Velocity 90.7 cm/s Mitral E to A Ratio 0.8 MV Deceleration Time 380.7 ms MV E' Velocity 4.2 cm/s Mitral E to MV E' Ratio 16.6 TR Peak Velocity 215.5 cm/s TR Peak Gradient 18.6 mmHg Right Ventricular Systolic Press 23.6 mmHg PV Peak Velocity 97.3 cm/s PV Peak Gradient 3.8 mmHg FINDINGS Left Ventricle Mildly increased septal wall thickness. Normal LV size. Near total LV systolic obliteration. Left ventricular ejection fraction is estimated at 80 %. Right Ventricle Normal right ventricular size. Right Atrium Normal right atrial size. Left Atrium Normal left atrial size. Mitral Valve Structurally normal mitral valve. Trace MR. Aortic Valve Aortic valve not well visualized. At least moderate AI. No aortic stenosis. Tricuspid Valve Tricuspid valve not well visualized. Mild TR. Pulmonic Valve Pulmonic valve not well visualized. No pulmonic regurgitation. Pericardium Not well visualized. Aorta Normal size aortic root. CONCLUSIONS Technically limited views. Normal LV size with hyperdynamic function Previewed by: Dr. Darwin Paz MD (Electronically Signed) Final Date: 19 November 2023 12:11
--- NOTE | 2023-11-19 16:18 | CDI ---
Documentation Clarification Form Date: From: Mirella Neely Phone: [phone] Admit Date: 11/16/2023 09:22:00 PM Patient Name: Pantera Antunez Visit Number: [id number] Discharge Date: ATTENTION: The Clinical Documentation Specialists (CDI) and [facility] Coding Staff appreciate your assistance in clarifying documentation. Please respond to the clarification below the line at the bottom and electronically sign. The CDI & [facility] Coding staff will review the response and follow-up if needed. Please note: Queries are made part of the Legal Health Record. If you have any questions, please contact the author of this message via ITS. Dr. Suresh Chin Your patient has a hemoglobin level of 11.0 on 11/19. Please clarify if there is an additional diagnosis and/or clinical significance related to these lab values. History/Risk Factors: " 83-year-old male who is admitted for hip fracture. Patient has a past medical history significant for dementia and is a poor historian." - Per Ortho H&P on 11/17 Clinical indicators: "Procedure(s) Performed: Right hip hemiarthroplasty with a direct anterior approach" "Estimated Blood Loss (ml): 300" - Per OP Report on 11/18 "He has been hypotensive postop." - Per Progress Note on 11/19 Hemoglobin: 11/17 - 15.6, 11/19 - 11.9, 11.0 Treatment: "given fluid bolus of 500ml. Possibly increase his fluids to 150 overnight" - Per Progress Note on 11/19 Is there an additional diagnosis and/or clinical significance related to the above lab result/information: [ ] Acute blood loss anemia [ x ] No additional diagnosis/Not clinically significant [ ] Unable to determine [ ] Other, please specify MTDD
--- NOTE | 2023-11-19 18:01 | CT ---
EXAMINATION TYPE: CT angio chest DATE OF EXAM: 11/19/2023 COMPARISON: None HISTORY: high d-dimer. recent hip sx CT DLP: 257.6 mGycm CONTRAST: CT chest with contrast and 3D reconstruction with MIP imaging is performed with IV Contrast, patient injected with 65ml mL of Isovue 370. Contrast-enhanced CT of the chest was performed through the course of the pulmonary arteries with mandy g and mediastinal window settings submitted. 3D reconstruction with MIP imaging was also performed. PULMONARY ARTERIES: The pulmonary arteries and their major tributaries are patent. I do not see pepe dence for sizable filling defect to suggest pulmonary embolic process. LUNGS: The lungs are clear and free of infiltrate. Mild dependent basilar atelectasis. No pulmonary n odule or mass is detected. No pleural effusion. MEDIASTINUM: Thoracic aorta is ectatic.. The heart is at the enlarged. No evidence for mediastinal mass. No mediastinal lymph nodes greater than 1cm. HILAR STRUCTURES: No evidence for mass. No hilar lymph nodes greater than 1 cm. UPPER ABDOMEN: No significant abnormality is seen. IMPRESSION: 1. No evidence for Pulmonary embolism at this time.
[2023-11-19] MEDS: ASPIRIN 325 MG TAB PO SCH (19:39)
[2023-11-19] MEDS: ATORVASTATIN 80 MG TAB PO SCH (19:39)
[2023-11-19] MEDS: SENNOSIDES-DOCUSATE SODIUM 1 EACH TAB PO SCH (19:39)
--- NOTE | 2023-11-20 01:43 | PN ---
PROGRESS NOTE SUBJECTIVE: Postop surgery on his right hip for fracture, had hypotension last time, was given a couple of fluid boluses. Blood pressure 112/71, O2 91 on room air, temp 99.7, pulse 103, respiratory rate 16 to 18. The patient has an increased septal wall. Ejection fraction about 80%, normal LV function, TR, moderate aortic valve difficulties. Continue standard postop treatment. Home medicines plus PT OT, possibly home soon. MMODL / IJN: [id number] /
[2023-11-20] MEDS: SODIUM CHLORIDE 0.9% 1,000 ML IV SCH ×5 (03:43→23:16)
[2023-11-20] MEDS: ASPIRIN 325 MG TAB PO SCH ×2 (08:51→20:25)
[2023-11-20] MEDS: SERTRALINE 25 MG TAB PO SCH (08:51)
[2023-11-20] MEDS: PANTOPRAZOLE 40 MG/10 ML VIAL IV SCH (08:51)
[2023-11-20] MEDS: CLOPIDOGREL 75 MG TAB PO SCH (08:51)
--- NOTE | 2023-11-20 10:12 | P.PN ---
Progress Note - Text Progress Note Date: 11/20/23 Orthopedics: History of present illness: Patient is a very pleasant 83-year-old male who is seen and examined at bedside for evaluation of his right hip. He is status post right hip hemiarthroplasty performed , 11/18/2023. He states his right hip pain has been medically controlled. He is not currently complaining of any pain. He is eating and voiding without significant difficulty. He is looking forward working with physical therapy. Patient states he is tired this morning. His pain continues to be well controlled. He is able to follow commands at the bedside without difficulty. Currently, consult was placed for case management to discuss possible discharged to rehabilitation facility once cleared. Patient has been discussed with case management this morning. Authorization has not yet been received for approval to [facility]. Nursing states patient is having some difficulty with hypotension this morning. He's being seen and examined in managed by medicine. Consultation has also been placed for cardiology by medicine. Patient is currently on Plavix and aspirin. Plavix was restarted yesterday. Physical Exam Hip Hemiarthroplasty: Status post surgical day number 2 Patient is examined sitting bedside lying in bed Patient is awake, alert, and oriented 3 Vital signs stable Good chest excursion with deep inspiration and expiration No signs or symptoms of DVT; no calf pain Lower extremity cuffs not currently in place bilaterally Dressing of the right hip is clean, dry, and intact; no erythema, purulence, or signs of infection No significant pain with palpation over the surgical site Full range of motion of ankles bilaterally Dorsiflexion, plantarflexion, and extensor hallucis longus positive sustained bilaterally Neurovascularly intact bilateral lower extremities Assessment: Status post right hip hemiarthroplasty for right femoral neck fracture Status post fall History of CVA/TIA Dementia Hypotension Plan: 1. Patient may continue to weight-bear as tolerated on the right lower extremity; patient may work with physical therapy to increase mobility and ambulation 2. Continue pain control IV Dilaudid and oral hydrocodone as prescribed as needed for pain control 3. Medicine to continue following the patient for their other medical medical diagnoses 4. Continue with with anticoagulation therapy with Plavix and aspirin 5. We'll continue to follow the patient; depending on his progress and insurance authorization and approval, we may plan for discharge to a rehabilitation facility as early as 11/22/2023 as he has not received insurance authorization today. We did discuss he must be stable stable from a medicine and cardiology standpoint prior to discharge. 6. Patient has been seen and examined by cardiology 7. Patient can follow-up with Dr. Suresh Chin at [facility] in 2-3 weeks following discharge
[2023-11-20 12:41] LABS: ALT 12 U/L (10-49); AST 36 U/L (14-35); Albumin 2.9 g/dL (3.8-4.9); Albumin/Globulin Ratio 1.93 Ratio (1.60-3.17); Alkaline Phosphatase 57 U/L (41-126); BUN/Creat Ratio 33.86 Ratio (12.00-20.00); Blood Urea Nitrogen 23.7 mg/dL (9.0-27.0); Carbon Dioxide 19.2 mmol/L (21.6-31.8); Chloride 111 mmol/L (96-109); Globulin 1.5 g/dL (1.6-3.3); Glucose 139 mg/dL (70-110); Potassium 3.7 mmol/L (3.5-5.5); Sodium 141 mmol/L (135-145); Total Bilirubin 1.4 mg/dL (0.3-1.2); Total Protein 4.4 g/dL (6.2-8.2)
[2023-11-20 12:53] LABS: Basophils # (A) 0.02 X 10*3/uL (0.00-0.10); Basophils % (A) 0.2 %; Eosinophils # (A) 0.01 X 10*3/uL (0.04-0.35); Eosinophils % (A) 0.1 %; HCT 27.4 % (39.6-50.0); Lymphocytes # (A) 0.59 X 10*3/uL (0.90-5.00); Lymphocytes % (A) 4.7 %; MCH 30.6 pg (27.0-32.0); MCHC 32.8 g/dL (32.0-37.0); MCV 93.2 FL (80.0-97.0); Mean Platelet Volume 10.8 FL (9.5-12.2); Monocytes # (A) 1.33 X 10*3/uL (0.20-1.00); Monocytes % (A) 10.6 %; NRBC Per 100 WBC 0 X 10*3/uL (0.00-0.01); Neutrophils # (A) 10.49 X 10*3/uL (1.80-7.70); Neutrophils % (A) 83.8 %; Platelet Count 172 X 10*3/uL (140-440); RBC 2.94 X 10*6/uL (4.40-5.60); RDW 13.4 % (11.5-14.5); WBC 12.52 X 10*3/uL (4.50-10.00)
[2023-11-20] MEDS: HYDROcodone/APAP 5-325MG 1 EACH TAB PO PRN (17:10)
[2023-11-20] MEDS: SENNOSIDES-DOCUSATE SODIUM 1 EACH TAB PO SCH (20:25)
[2023-11-20] MEDS: ATORVASTATIN 80 MG TAB PO SCH (20:25)
--- NOTE | 2023-11-20 23:00 | P.PN ---
Progress Note - Text Progress Note Date: 11/20/23 Hospital course: I'm rounding for Dr. Jimmy Persaud. 11/20/2023: Tired. Pending rehab. Up to the bathroom with help. Breathing stable. Pain fairly well controlled. Active Medications Hydrocodone Bitart/Acetaminophen (Hydrocodone/Apap 5-325mg 1 Each Tab) 1 each PO Q6HR PRN PRN Reason: Pain Scale 1 to 5 Last Admin: 11/20/23 17:10 Dose: 1 each Hydrocodone Bitart/Acetaminophen (Hydrocodone/Apap 5-325mg 1 Each Tab) 2 each PO Q6HR PRN PRN Reason: Pain Scale 6 to 10 Aspirin (Aspirin 325 Mg Tab) 325 mg PO BID [facility] Last Admin: 11/20/23 20:25 Dose: 325 mg Atorvastatin Calcium (Atorvastatin 80 Mg Tab) 80 mg PO HS [facility] Last Admin: 11/20/23 20:25 Dose: 80 mg Clopidogrel Bisulfate (Clopidogrel 75 Mg Tab) 75 mg PO DAILY [facility] Last Admin: 11/20/23 08:51 Dose: 75 mg Hydromorphone HCl (Hydromorphone 0.5 Mg/0.5 Ml Syringe) 0.125 mg IVP Q3HR PRN PRN Reason: Pain Scale 1 to 3 Hydromorphone HCl (Hydromorphone 0.5 Mg/0.5 Ml Syringe) 0.5 mg IVP Q3HR PRN PRN Reason: Pain Scale 7 to 10 Hydromorphone HCl (Hydromorphone 0.5 Mg/0.5 Ml Syringe) 0.25 mg IVP Q3HR PRN PRN Reason: Pain Scale 4 to 6 Sodium Chloride (Saline 0.9%) 1,000 mls @ 70 mls/hr IV .[id number] [facility] Last Admin: 11/20/23 08:55 Dose: 70 mls/hr Sodium Chloride (Saline 0.9%) 1,000 mls @ 150 mls/hr IV .[id number] [facility] Last Admin: 11/20/23 16:49 Dose: Not Given Magnesium Hydroxide (Magnesium Hydroxide 2,400 Mg/30 Ml Cup) 2,400 mg PO DAILY PRN PRN Reason: Constipation Morphine Sulfate (Morphine Sulfate 4 Mg/Ml Syringe) 4 mg IV Q4HR PRN PRN Reason: Severe Pain (Scale 7 to 10) Naloxone HCl (Naloxone 0.4 Mg/Ml 1 Ml Vial) 0.2 mg IV Q2M PRN PRN Reason: Opioid Reversal Ondansetron HCl (Ondansetron 4 Mg/2 Ml Vial) 4 mg IVP Q8H PRN PRN Reason: Nausea And Vomiting Last Admin: 11/18/23 15:17 Dose: 4 mg Pantoprazole Sodium (Pantoprazole 40 Mg/10 Ml Vial) 40 mg IV DAILY [facility] Last Admin: 11/20/23 08:51 Dose: 40 mg Senna/Docusate Sodium (Sennosides-Docusate Sodium 1 Each Tab) 2 each PO HS [facility] Last Admin: 11/20/23 20:25 Dose: 2 each Sertraline HCl (Sertraline 25 Mg Tab) 75 mg PO DAILY [facility] Last Admin: 11/20/23 08:51 Dose: 75 mg On examination: VITAL SIGNS: [98.9, 88, 18, 97 x 60, 93% room air] GENERAL APPEARANCE: Lying in bed, not in distress. HEENT: Normal external appearance of nose and ear. Oral cavity normal EYES: Pupils equal. Conjunctiva normal. NECK: JVD not raised. Mass not palpable. RESPIRATORY: Respiratory effort normal. Lungs clear to auscultation. CARDIOVASCULAR: First and second sounds normal. No edema. ABDOMEN: Soft. Liver and spleen not palpable. No tenderness. No mass palpable. PSYCHIATRY: Alert and oriented x3. Mood and affect normal. MUSCULAR skeletal: OA. Dressing over the right hip incision. INVESTIGATIONS, reviewed in the clinical context: 10/28/2024:White count 12.5 hemoglobin 9 potassium 3.7 creatinine 0.7 Chest CTA: Not given for PE 2-D echocardiogram: EF 80%. Moderate aortic regurgitation. Assessment and plan: -Self Fractured Right Hip. Followed by Right Hip Hemiarthroplasty by Dr. Chin. Pain Control. Aspirin for DVT Prophylaxis -Essential Hypertension Patient Was on Lisinopril. Held. As Blood Pressure in the Lower Side Because of Blood Loss Anemia -Acute Postprocedure Blood Loss Anemia Expected from Surgery IV Ferrlecit. -Hyperlipidemia Lipitor -Cognitive impairment -Full code IV Ferrlecit. Pending rehab.
[2023-11-20] MEDS: SODIUM FERRIC GLUCONAT-SUCROSE 125 MG in SODIUM CHLORIDE 0.9% 100 ML IVPB SCH (23:15)
[2023-11-21] MEDS: CLOPIDOGREL 75 MG TAB PO SCH (08:47)
[2023-11-21] MEDS: ASPIRIN 325 MG TAB PO SCH ×2 (08:47→20:18)
[2023-11-21] MEDS: SERTRALINE 25 MG TAB PO SCH (08:47)
[2023-11-21] MEDS: SODIUM FERRIC GLUCONAT-SUCROSE 125 MG in SODIUM CHLORIDE 0.9% 100 ML IVPB SCH (08:47)
[2023-11-21] MEDS: HYDROcodone/APAP 5-325MG 1 EACH TAB PO PRN ×2 (08:47→16:02)
[2023-11-21 09:54] LABS: Basophils # (A) 0.02 X 10*3/uL (0.00-0.10); Basophils % (A) 0.2 %; Eosinophils # (A) 0.09 X 10*3/uL (0.04-0.35); Eosinophils % (A) 0.9 %; HCT 22.7 % (39.6-50.0); HGB 7.5 g/dL (13.0-17.0); Lymphocytes # (A) 0.92 X 10*3/uL (0.90-5.00); Lymphocytes % (A) 9.2 %; MCH 30.7 pg (27.0-32.0); Mean Platelet Volume 10.9 FL (9.5-12.2); Monocytes # (A) 1.03 X 10*3/uL (0.20-1.00); Monocytes % (A) 10.4 %; NRBC Per 100 WBC 0 X 10*3/uL (0.00-0.01); Neutrophils # (A) 7.82 X 10*3/uL (1.80-7.70); Neutrophils % (A) 78.6 %; Platelet Count 170 X 10*3/uL (140-440); RBC 2.44 X 10*6/uL (4.40-5.60); RDW 13.4 % (11.5-14.5); WBC 9.95 X 10*3/uL (4.50-10.00)
--- NOTE | 2023-11-21 11:10 | P.PN ---
Progress Note - Text Progress Note Date: 11/21/23 Orthopedics: History of present illness: Patient is a very pleasant 83-year-old male who is seen and examined at bedside for evaluation of his right hip. He is status post right hip hemiarthroplasty performed , 11/18/2023. He states his right hip pain has been medically controlled. He is not currently complaining of any pain. Bedside chair. He is talkative this morning. He is eating without significant difficulty. He is looking forward working with physical therapy. Patient states he is tired this morning. His pain continues to be well controlled. He has a Rivera catheter intact. Patient has been seen by case management who working on discharge to rehabilitation facility. Patient has not received authorization from his insurance yet. We are planning for discharge to [facility] once authorization has been received and patient is cleared medically. Patient continues to be seen and examined by medicine. Patient is currently on Plavix and aspirin. Plavix was restarted yesterday. Physical Exam Hip Hemiarthroplasty: Status post surgical day number 3 Patient is examined sitting bedside lying in bed Patient is awake, alert, and oriented 3 Vital signs stable Good chest excursion with deep inspiration and expiration No signs or symptoms of DVT; no calf pain Lower extremity cuffs not currently in place bilaterally Dressing of the right hip is clean, dry, and intact; no erythema, purulence, or signs of infection No significant pain with palpation over the surgical site Full range of motion of ankles bilaterally Dorsiflexion, plantarflexion, and extensor hallucis longus positive sustained bilaterally Neurovascularly intact bilateral lower extremities Assessment: Status post right hip hemiarthroplasty for right femoral neck fracture Status post fall History of CVA/TIA Dementia Hypotension Plan: We will continue with our plan as set forth previously. 1. Patient may continue to weight-bear as tolerated on the right lower extremity; patient may work with physical therapy to increase mobility and ambulation 2. Continue pain control IV Dilaudid and oral hydrocodone as prescribed as needed for pain control; we can wean off IV Dilaudid in anticipation for discharge tomorrow 3. Medicine to continue following the patient for their other medical medical diagnoses 4. Continue with with anticoagulation therapy with Plavix and aspirin 5. We'll continue to follow the patient; depending on his progress and insurance authorization and approval, we may plan for discharge to a rehabilitation facility as early as 11/22/2023 as he has not received insurance authorization today. We did discuss he must be stable stable from a medicine and cardiology standpoint prior to discharge. 6. Patient can follow-up with Dr. Suresh Chin at [facility] in 2-3 weeks following discharge
[2023-11-21] MEDS: ATORVASTATIN 80 MG TAB PO SCH (20:18)
[2023-11-21] MEDS: SENNOSIDES-DOCUSATE SODIUM 1 EACH TAB PO SCH (20:18)
--- NOTE | 2023-11-21 21:43 | P.PN ---
Progress Note - Text Progress Note Date: 11/21/23 Hospital course: I'm rounding for Dr. Jimmy Persaud. 11/20/2023: Tired. Pending rehab. Up to the bathroom with help. Breathing stable. Pain fairly well controlled. 11/21/2023: Up in a recliner. Further drop in hemoglobin. Ultrasound ordered of the right thigh to rule out any local hematoma. Pain is controlled. Tolerating a diet. Eating fair. Active Medications Hydrocodone Bitart/Acetaminophen (Hydrocodone/Apap 5-325mg 1 Each Tab) 1 each PO Q6HR PRN PRN Reason: Pain Scale 1 to 5 Last Admin: 11/21/23 16:02 Dose: 1 each Hydrocodone Bitart/Acetaminophen (Hydrocodone/Apap 5-325mg 1 Each Tab) 2 each PO Q6HR PRN PRN Reason: Pain Scale 6 to 10 Aspirin (Aspirin 325 Mg Tab) 325 mg PO BID [facility] Last Admin: 11/21/23 20:18 Dose: 325 mg Atorvastatin Calcium (Atorvastatin 80 Mg Tab) 80 mg PO HS [facility] Last Admin: 11/21/23 20:18 Dose: 80 mg Clopidogrel Bisulfate (Clopidogrel 75 Mg Tab) 75 mg PO DAILY [facility] Last Admin: 11/21/23 08:47 Dose: 75 mg Hydromorphone HCl (Hydromorphone 0.5 Mg/0.5 Ml Syringe) 0.125 mg IVP Q3HR PRN PRN Reason: Pain Scale 1 to 3 Hydromorphone HCl (Hydromorphone 0.5 Mg/0.5 Ml Syringe) 0.5 mg IVP Q3HR PRN PRN Reason: Pain Scale 7 to 10 Hydromorphone HCl (Hydromorphone 0.5 Mg/0.5 Ml Syringe) 0.25 mg IVP Q3HR PRN PRN Reason: Pain Scale 4 to 6 Ferric Sodium Gluconate 125 mg (/ Sodium Chloride) 110 mls @ 100 mls/hr IVPB DAILY [facility] Stop: 11/22/23 10:05 Last Admin: 11/21/23 08:47 Dose: 100 mls/hr Magnesium Hydroxide (Magnesium Hydroxide 2,400 Mg/30 Ml Cup) 2,400 mg PO DAILY PRN PRN Reason: Constipation Last Admin: 11/21/23 20:18 Dose: 2,400 mg Naloxone HCl (Naloxone 0.4 Mg/Ml 1 Ml Vial) 0.2 mg IV Q2M PRN PRN Reason: Opioid Reversal Ondansetron HCl (Ondansetron 4 Mg/2 Ml Vial) 4 mg IVP Q8H PRN PRN Reason: Nausea And Vomiting Last Admin: 11/18/23 15:17 Dose: 4 mg Senna/Docusate Sodium (Sennosides-Docusate Sodium 1 Each Tab) 2 each PO HS [facility] Last Admin: 11/21/23 20:18 Dose: 2 each Sertraline HCl (Sertraline 25 Mg Tab) 75 mg PO DAILY [facility] Last Admin: 11/21/23 08:47 Dose: 75 mg On examination: VITAL SIGNS: ] 98, 79, 18, 11 5 x 69, 95% room air GENERAL APPEARANCE: Up in a recliner, comfortable HEENT: Normal external appearance of nose and ear. Oral cavity normal EYES: Pupils equal. Conjunctiva normal. NECK: JVD not raised. Mass not palpable. RESPIRATORY: Respiratory effort normal. Lungs clear to auscultation. CARDIOVASCULAR: First and second sounds normal. No edema. ABDOMEN: Soft. Liver and spleen not palpable. No tenderness. No mass palpable. PSYCHIATRY: Alert and oriented x3. Mood and affect normal. MUSCULAR skeletal: OA. Dressing over the right hip incision. Right thigh greater than circumference compared to the left INVESTIGATIONS, reviewed in the clinical context: 11/21/2023: White count 9.9 hemoglobin 7.5 11/20/2023:White count 12.5 hemoglobin 9 potassium 3.7 creatinine 0.7 Chest CTA: Not given for PE 2-D echocardiogram: EF 80%. Moderate aortic regurgitation. Assessment and plan: -Fractured Right Hip. Followed by Right Hip Hemiarthroplasty by Dr. Chin. Pain Control. Aspirin for DVT Prophylaxis -Essential Hypertension Patient Was on Lisinopril. Held. As Blood Pressure in the Lower Side Because of Blood Loss Anemia -Significant drop in hemoglobin from initial 15.6 down to 7.5. [This is also keeping account of any hemoconcentration] Ultrasound right hip at the operative site rule out local hematoma -Acute Postprocedure Blood Loss Anemia Expected from Surgery IV Ferrlecit. -Hyperlipidemia Lipitor -Cognitive impairment -Full code IV Ferrlecit. Ultrasound right thigh operative site rule out hematoma.
--- NOTE | 2023-11-22 08:40 | US ---
EXAMINATION TYPE: US extremity nonvasculr ltd RT DATE OF EXAM: 11/21/2023 COMPARISON: 11/18/2023. CLINICAL INDICATION: Male, 83 years old with history of R thigh - ? hematoma at operative site; Recen t right hip replacement surgery/ pt has complaints of pain at incision site right anterior thigh TECHNIQUE: Right anterior thigh, Area surrounding bandage anterior right thigh scanned- FINDINGS: No evidence of fluid collection visualized, some streaky subcutaneous superficial edema is present. IMPRESSION: No organizing fluid collection or mass. Mild subcutaneous streaky edema.
[2023-11-22] MEDS: ASPIRIN 325 MG TAB PO SCH (08:59)
[2023-11-22] MEDS: CLOPIDOGREL 75 MG TAB PO SCH (08:59)
[2023-11-22] MEDS: SERTRALINE 25 MG TAB PO SCH (09:00)
[2023-11-22] MEDS: SODIUM FERRIC GLUCONAT-SUCROSE 125 MG in SODIUM CHLORIDE 0.9% 100 ML IVPB SCH (09:00)
--- NOTE | 2023-11-22 09:34 | P.PN ---
Subjective Progress Note Date: 11/22/23 This is an 83-year-old male who is status post right hip hemiarthroplasty with direct anterior approach. This is postoperative day #4 and patient is seen and evaluated at bedside today. Patient denies any new complaints today. Objective - Vital Signs Vital signs: Vital Signs Temp 98.2 F 11/22/23 07:17 Pulse 79 11/22/23 07:17 Resp 18 11/22/23 07:17 BP 110/67 11/22/23 07:17 Pulse Ox 96 11/22/23 07:17 FiO2 Intake & Output 11/21/23 11/22/23 11/22/23 18:59 06:59 18:59 Intake Total 400 Balance 400 Intake: Oral 400 Other: Voiding Method External Catheter Diaper # Voids 3 - Exam Vital signs are stable. Patient is in no acute distress and is alert and oriented 3. Calf is soft and nontender to palpation. Dressing is clean and dry. Patient has full foot and ankle motion without pain or difficulty. Sensation intact. Neurovascular status and circulatory status are intact. - Labs CBC & Chem 7: 11/21/23 05:45 11/20/23 05:53 Labs: Abnormal Lab Results - Last 24 Hours (Table) 11/21/23 Range/Units 05:45 RBC 2.44 L (4.40-5.60) X 10*6/uL Hgb 7.5 L (13.0-17.0) g/dL Hct 22.7 L (39.6-50.0) % Immature Gran # 0.07 H (0.00-0.04) X 10*3/uL Neutrophils # 7.82 H (1.80-7.70) X 10*3/uL Monocytes # 1.03 H (0.20-1.00) X 10*3/uL Assessment and Plan (1) Closed right hip fracture Current Visit: Yes Status: Acute Code(s): S72.001A - FRACTURE OF UNSP PART OF NECK OF RIGHT FEMUR, INIT SNOMED Code(s): 029499987 (2) Fall Current Visit: Yes Status: Acute Code(s): W19.XXXA - UNSPECIFIED FALL, INITIAL ENCOUNTER SNOMED Code(s): 0067532 Plan: Continue routine postop care and pain control. Continue anticoagulation per internal medicine. Weightbearing as tolerated with a walker. New optifoam dressing will be applied today. This dressing may stay in place for 7 days. Appreciate input from internal medicine. Anticipate discharge to ECF once medically cleared.
[2023-11-22 12:45] LABS: Basophils % (A) 0 %; Eosinophils # (A) 0.1 k/uL (0-0.7); Eosinophils % (A) 2 %; HGB 8.2 gm/dL (13.0-17.5); Lymphocytes # (A) 1.1 k/uL (1.0-4.8); Lymphocytes % (A) 11 %; MCH 31.8 pg (25.0-35.0); MCHC 34.3 g/dL (31.0-37.0); MCV 92.6 fL (80.0-100.0); Monocytes # (A) 0.6 k/uL (0-1.0); Monocytes % (A) 6 %; Neutrophils # (A) 7.7 k/uL (1.3-7.7); Neutrophils % (A) 80 %; Platelet Count 235 k/uL (150-450); RBC 2.59 m/uL (4.30-5.90); RDW 13.5 % (11.5-15.5)
[2023-11-22 12:50] LABS: WBC 9.7 k/uL (3.8-10.6)
[2023-11-22 12:52] LABS: African American GFR (CKD) >90 (>60 ml/min/1.73 sqM); Anion Gap 2 mmol/L; Blood Urea Nitrogen 21 mg/dL (9-20); Calcium 7.4 mg/dL (8.4-10.2); Carbon Dioxide 25 mmol/L (22-30); Chloride 109 mmol/L (98-107); Glucose 125 mg/dL (74-99); Non-African American GFR(CKD) >90 (>60 ml/min/1.73 sqM); Potassium 3.7 mmol/L (3.5-5.1); Sodium 136 mmol/L (137-145)
--- NOTE | 2023-11-22 15:04 | P.DS ---
Providers Date of admission: 11/16/23 21:22 Expected date of discharge: 11/22/23 Attending physician: Suresh Chin Consults: 11/16/23 21:22 Consult Physician Routine Consulting Provider: Jimmy Persaud Consult Reason/Comments: [employer] Do you want consulting provider notified?: Yes Primary care physician: Salvatore Prakash NPC - Discharge Diagnosis(es) (1) Closed right hip fracture Current Visit: Yes Status: Acute (2) Fall Current Visit: Yes Status: Acute Hospital Course: This is an 83-year-old male who sustained a fracture of the right hip after a fall. The patient presented for evaluation in the emergency room where x-rays revealed right femoral neck fracture. After discussion and consideration patient elects to proceed with right hip hemiarthroplasty. The patient is seen preoperatively by Dr. Chin and cleared for surgery by internal medicine. Patient is admitted to [facility] on 11/16/2023 and right hip hemiarthroplasty is performed on 11/18/2023. The procedure is performed without complication or sequelae. The patient is doing well postoperatively. Patient was also evaluated by cardiology during this admission for hypotension and abnormal EKG and was found to be stable from a cardiac standpoint. Labs and vital signs are stable on day of discharge. On day of discharge patient's hip incision is healing well. There is minimal erythema. There is no drainage noted at this time. There is minimal soft tissue swelling to the hip and thigh. Patient has full foot and ankle motion without difficulty or pain. Neurovascular status to the right lower extremity is intact. Opioid start talking form is discussed and signed. Patient is discharged to rehab in good condition. Please see med rec for accurate list of home medications. Patient Condition at Discharge: Fair Plan - Discharge Summary Discharge Rx Participant: No New Discharge Prescriptions: New Aspirin 325 mg PO BID #60 tab HYDROcodone/APAP 5-325MG [[place] 5-325] 1 - 2 tab PO Q6HR PRN #32 tab PRN Reason: Pain Sennosides [Senokot] 2 tab PO DAILY PRN #60 tablet PRN Reason: Constipation No Action Clopidogrel [Plavix] 75 mg PO DAILY 30 Days tab lisinopriL [Zestril] 2.5 mg PO DAILY Atorvastatin [Lipitor] 80 mg PO HS 30 Days tab Sertraline [Zoloft] 75 mg PO DAILY Discharge Medication List Atorvastatin [Lipitor] 80 mg PO HS 30 Days tab 11/05/21 [Rx] Clopidogrel [Plavix] 75 mg PO DAILY 30 Days tab 11/05/21 [Rx] Sertraline [Zoloft] 75 mg PO DAILY 10/26/23 [History] lisinopriL [Zestril] 2.5 mg PO DAILY 10/26/23 [History] Aspirin 325 mg PO BID #60 tab 11/18/23 [Rx] HYDROcodone/APAP 5-325MG [[place] 5-325] 1 - 2 tab PO Q6HR PRN #32 tab 11/18/23 [Rx] Sennosides [Senokot] 2 tab PO DAILY PRN #60 tablet 11/18/23 [Rx] Follow up Appointment(s)/Referral(s): Jimmy Persaud MD [STAFF PHYSICIAN] - 1-2 days Suresh Chin DO [Doctor of Osteopathic Medicine] - 12/08/23 10:00 am Activity/Diet/Wound Care/Special Instructions: Weightbearing as tolerated with walker. Leave dressing intact. Dressing may be removed by home care nurse or by patient in 7 days. Then change dressing twice daily until follow up. May shower with initial dressing intact and after removal. If dressing become saturated, please remove. Please resume Plavix. Please take aspirin 325mg twice daily for 30 days to help prevent blood clots. Recommend use of compression stockings daily until follow up to help prevent swelling and blood clots. May remove at night before sleeping. Please follow-up with [facility] in 2 weeks and call with any questions or concerns, . Discharge Disposition: TRANSFER TO SNF/ECF
[2023-11-22 15:33] VITALS: BP 106/69; PULSE 80; RESP 19; TEMP 97.5
--- NOTE | 2023-11-22 21:45 | PN ---
PROGRESS NOTE SUBJECTIVE: An 83-year-old with hip fracture, is going for rehab. pain medicine. He is on, 1. Plavix 75 daily. 2. Lipitor 80 daily. 3. Aspirin 81 daily. 4. Zoloft 75 daily. 5. Milk of magnesia p.r.n. He will follow up as an outpatient. Condition stable. Discharge med rec filled out. MMODL / IJN: [id number] /
== END 2023-11-22 18:54 | DRG 522 ==
LOC: EC 18:47 → 4SSUR 21:22
PROVIDERS: ADMIT Orthopaedic Surgery; ATTEND Orthopaedic Surgery
PROC: 0SRR0JA Replacement of Right Hip Joint, Femoral Surface with Synthetic Substitute, Uncemented, Open Approach (ICD-10-PCS; principal; 2023-11-18 12:30)
DX: S72.011A Unspecified intracapsular fracture of right femur, initial encounter for closed fracture (principal); D62 Acute posthemorrhagic anemia; Y92.129 Unspecified place in nursing home as the place of occurrence of the external cause; E78.5 Hyperlipidemia, unspecified; I10 Essential (primary) hypertension; W18.30XA Fall on same level, unspecified, initial encounter; F03.90 Unspecified dementia, unspecified severity, without behavioral disturbance, psychotic disturbance, mood disturbance, and anxiety; Z79.02 Long term (current) use of antithrombotics/antiplatelets; Z79.82 Long term (current) use of aspirin; Z79.899 Other long term (current) drug therapy
CPT/HCPCS: 71045; 71275; 72170; 73501; 80048; 80053; 82533; 83735; 84100; 84484; 85025; 85379; 86850; 86900; 86901; 93005; 93306; 96361; 96374; 99285